=== PATIENT | male | born 1940 | race Hispanic/Latino ===

== ENCOUNTER 2016-08-27 16:52 | Emergency (ER) | payer MEDICARE, BC ==
[2016-08-27 16:52] VITALS: PULSE 70; BMI 34.6
[2016-08-27 16:59] VITALS: BP 178/79; PULSE 80; RESP 20; TEMP 97.8; O2SAT 98
[2016-08-27] MEDS ORDERED: Iohexol 240 (50 ml) PO STA (17:30)
--- NOTE | 2016-08-27 17:57 | ED PDOC ---
HPI: Abdomen Time Seen by Provider: 08/27/16 17:03 Chief Complaint (Nursing): Abdominal Pain Chief Complaint (Provider): Abdominal Pain History Per: Patient History/Exam Limitations: no limitations Onset/Duration Of Symptoms: Days (1x), Sudden Onset Current Symptoms Are (Timing): Still Present Severity: Moderate Location Of Pain/Discomfort: LUQ, LLQ Associated Symptoms: Nausea, Loss Of Appetite, Constipation. denies: Fever, Chills, Vomiting, Diarrhea, Urinary Symptoms Last Bowel Movement: Today (this morning) Additional Complaint(s): 75 year old male patient with a pertinent medical history of AFIB, HTN, CHF, and chronic constipation presents to the ED with complaints of left sided abdominal pain that started suddenly yesterday, resolved last night, and worsened this morning. He reports eating this morning but having a loss of appetite, associated nausea, and black stools secondary to iron intake (last bowel movement was this morning). He denies having bloody stools, vomiting, diarrhea, chills, and urinary symptoms. PMD: García Moura MD Past Medical History Reviewed: Historical Data, Nursing Documentation, Vital Signs Vital Signs: Last Vital Signs Temp 97.8 F 08/27/16 16:56 Pulse 80 08/27/16 16:56 Resp 20 08/27/16 16:56 BP 178/79 H 08/27/16 16:56 Pulse Ox 98 08/27/16 18:49 - Medical History PMH: Atrial Fibrillation, CHF, Hypercholesterolemia, Pneumonia Denies: HIV, Chronic Kidney Disease - Surgical History Other surgeries: left knee arthroscentesis. laparotomy for perforated ulcer - Family History Family History: States: No Known Family Hx - Social History Current smoker - smoking cessation education provided: No Alcohol: None Drugs: Denies - Home Medications Home Medications: Ambulatory Orders Medication Instructions Recorded Atorvastatin [Lipitor] 20 mg PO HS #0 tab 01/17/16 Diltiazem HCl [Cardizem LA] 300 mg PO DAILY #0 tab.er.24h 01/17/16 Ciprofloxacin HCl [Cipro] 250 mg PO BID #14 tab 08/27/16 Fenofibrate [Tricor] 134 mg PO DAILY 08/27/16 Linagliptin [Tradjenta] 5 mg PO DAILY 08/27/16 Tamsulosin [Flomax] 0.4 mg PO DAILY #14 cap 08/27/16 Telmisartan/Hydrochlorothiazid 1 tab PO DAILY 08/27/16 [Telmisartan-Hctz 80-25 mg Tab] cloNIDine [Catapres] 0.3 mg PO BID 08/27/16 metFORMIN [glucOPHAGE] 500 mg PO TID 08/27/16 traMADol [Ultram] 50 mg PO TID PRN #15 tab 08/27/16 - Allergies Allergies/Adverse Reactions: Allergies Allergy/AdvReac Type Severity Reaction Status Date / Time dabigatran etexilate Allergy hot flashes Verified 08/27/16 16:55 [From Pradaxa] Review of Systems ROS Statement: Except As Marked, All Systems Reviewed And Found Negative Constitutional: Negative for: Fever Gastrointestinal: Positive for: Nausea, Abdominal Pain (left side), Constipation , Other (black stool). Negative for: Vomiting, Diarrhea, Hematemesis Genitourinary Male: Negative for: Dysuria, Frequency, Hematuria Physical Exam - Reviewed Nursing Documentation Reviewed: Yes Vital Signs Reviewed: Yes - Physical Exam Appears: Positive for: Well, Non-toxic, In Acute Distress (moderate painful distress) Head Exam: Positive for: ATRAUMATIC, NORMOCEPHALIC Skin: Positive for: Warm, Dry, Pallor Cardiovascular/Chest: Positive for: Regular Rate, Rhythm Respiratory: Positive for: Normal Breath Sounds. Negative for: Respiratory Distress Gastrointestinal/Abdominal: Positive for: Bowel Sounds (hyperactive), Tenderness (upper left quadrant and lower left quadrant tenderness), Distended ( softly distended), Other (abdomen is protuberant. negative mcburney's point tenderness). Negative for: Mass, Guarding, Rebound Back: Positive for: Normal Inspection Extremity: Positive for: Normal ROM Neurologic/Psych: Positive for: Alert, Oriented (3x) - Laboratory Results Result Diagrams: 08/27/16 17:55 08/27/16 17:55 - ECG O2 Sat by Pulse Oximetry: 98 (RA) Pulse Ox Interpretation: Normal Medical Decision Making Medical Decision Makin:03 Initial impression: 75 year old male with abdominal pain. Differential diagnoses include but are not limited to constipation, diverticulitis, colitis, obstruction, and mesenteric ischemia. Initial plan: * CT abd and pelvis w/o po or IV contrast * XRay abdomen and chest * VBG * EKG * CMP * lipase * magenisium * phosphorous * troponin I * udip * PT/PTT * morphine 4mg IVP * zofran 8mg IV * blood culture * accucheck * reevaluation Accession No. : [id number] Patient Name / ID : AUSTEN COSTELLO / [id number] Exam Date : 08/27/2016 17:35:31 ( Approved ) Study Comment : Sex / Age : M / 75Y Creator : Oniel Adams MD Dictator : Oniel Adams MD Hoop Machine Operator : Salon Assistant : Oniel Adams MD Approver2 : Report Date : 08/27/2016 18:12:27 My Comment : PROCEDURE: CT Abdomen and Pelvis without intravenous contrast HISTORY: Abdominal pain and distention. COMPARISON: None. TECHNIQUE: Technique. Unenhanced study. Neither oral nor intravenous contrast administered. Radiation dose: Total exam DLP = mGy-cm. This CT exam was performed using one or more of the following dose reduction techniques: Automated exposure control, adjustment of the mA and/or kV according to patient size, and/or use of iterative reconstruction technique. FINDINGS: LOWER THORAX: Unremarkable. LIVER: Unremarkable. No gross lesion or ductal dilatation. GALLBLADDER AND BILE DUCTS: Unremarkable. PANCREAS: Unremarkable. No gross lesion or ductal dilatation. SPLEEN: Unremarkable. ADRENALS: Unremarkable. No mass. KIDNEYS AND URETERS: Left kidney in ureter: 4 mm calculus at the left ureterovesical junction. Proximal distention of the left ureter and left collecting system. No upper tract calculi identified on the left. Unremarkable right kidney and ureter. VASCULATURE: Unremarkable. No aortic aneurysm. BOWEL: Constipation without fecal impaction or obstruction. Diverticulosis without an acute inflammatory component or other associated pathologic process. APPENDIX: Unremarkable. Normal appendix. PERITONEUM: Unremarkable. No free fluid. No free air. LYMPH NODES: Unremarkable. No enlarged lymph nodes. BLADDER: Unremarkable. REPRODUCTIVE: Unremarkable. BONES: No acute fracture. OTHER FINDINGS: Midline anterior abdominal wall hernia containing fat only. IMPRESSION: Unilateral, left obstructive uropathy related to a 4 mm calculus at the left ureterovesical junction. Unremarkable upper tracts. Constipation/fecal impaction without obstruction. Scribe Attestation: Documented by Evelia Lei, acting as a scribe for Corry Billingsley MD. Provider Scribe Attestation: All medical record entries made by the Scribe were at my direction and personally dictated by me. I have reviewed the chart and agree that the record accurately reflects my personal performance of the history, physical exam, medical decision making, and the department course for this patient. I have also personally directed, reviewed, and agree with the discharge instructions and disposition. Disposition - Clinical Impression Clinical Impression: Renal calculus Counseled Patient/Family Regarding: Studies Performed, Diagnosis, Need For Followup, Rx Given - Disposition Referrals: Jn Hinojosa MD [Medical Doctor] - 08/28/16 [facility] [Outside] Disposition: Routine/Home Disposition Time: 19:53 Condition: IMPROVED Prescriptions: Ciprofloxacin HCl [Cipro] 250 mg PO BID #14 tab Tamsulosin [Flomax] 0.4 mg PO DAILY #14 cap traMADol [Ultram] 50 mg PO TID PRN #15 tab PRN Reason: SEVERE PAIN ONLY Instructions: Kidney Stones (ED)
[2016-08-27 18:00] LABS: VENOUS BLOOD GAS BASE EXCESS 5.8 mmol/L (0.0-2.0); VENOUS BLOOD GAS PCO2 55 mmHg (40-60); VENOUS BLOOD PH 7.38 (7.32-7.43)
[2016-08-27 18:04] LABS: BASO # 0.1 K/uL (0.0-0.2); BASO % 0.8 % (0.0-2.0); EOS # 0.2 K/uL (0.0-0.7); EOS % 2.5 % (0.0-4.0); HEMATOCRIT 44.7 % (35.0-51.0); LYMPH # 2.3 K/uL (1.0-4.3); LYMPH % 25.8 % (20.0-40.0); MEAN CORPUSCULAR HEMOGLOBIN 27.8 pg (27.0-31.0); MEAN PLATELET VOLUME 7.9 fl (7.2-11.7); MONO # 0.7 K/uL (0.0-0.8); MONO % 7.8 % (0.0-10.0); NEUT # 5.5 K/uL (1.8-7.0); NEUT % 63.1 % (50.0-75.0); NRBC % 0.1 % (0.0-0.0); RED CELL DISTRIBUTION WIDTH 15.7 % (11.5-14.5); WHITE BLOOD COUNT 8.7 K/uL (4.8-10.8)
--- NOTE | 2016-08-27 18:14 | CT ---
PROCEDURE: CT Abdomen and Pelvis without intravenous contrast HISTORY: Abdominal pain and distention. COMPARISON: None. TECHNIQUE: Technique. Unenhanced study. Neither oral nor intravenous contrast administered. Radiation dose: Total exam DLP = mGy-cm. This CT exam was performed using one or more of the following dose reduction techniques: Automated exposure control, adjustment of the mA and/or kV according to patient size, and/or use of iterative reconstruction technique. FINDINGS: LOWER THORAX: Unremarkable. LIVER: Unremarkable. No gross lesion or ductal dilatation. GALLBLADDER AND BILE DUCTS: Unremarkable. PANCREAS: Unremarkable. No gross lesion or ductal dilatation. SPLEEN: Unremarkable. ADRENALS: Unremarkable. No mass. KIDNEYS AND URETERS: Left kidney in ureter: 4 mm calculus at the left ureterovesical junction. Proximal distention of the left ureter and left collecting system. No upper tract calculi identified on the left. Unremarkable right kidney and ureter. VASCULATURE: Unremarkable. No aortic aneurysm. BOWEL: Constipation without fecal impaction or obstruction. Diverticulosis without an acute inflammatory component or other associated pathologic process. APPENDIX: Unremarkable. Normal appendix. PERITONEUM: Unremarkable. No free fluid. No free air. LYMPH NODES: Unremarkable. No enlarged lymph nodes. BLADDER: Unremarkable. REPRODUCTIVE: Unremarkable. BONES: No acute fracture. OTHER FINDINGS: Midline anterior abdominal wall hernia containing fat only. IMPRESSION: Unilateral, left obstructive uropathy related to a 4 mm calculus at the left ureterovesical junction. Unremarkable upper tracts. Constipation/fecal impaction without obstruction.
[2016-08-27 18:16] LABS: ALB/GLOB RATIO 1.7 (1.0-2.1); ALKALINE PHOSPHATASE 36 U/L (38-126); ALT/SGPT 42 U/L (21-72); AST/SGOT 34 U/L (17-59); BILIRUBIN,TOTAL 0.5 mg/dl (0.2-1.3); BLOOD UREA NITROGEN 23 mg/dl (9-20); CARBON DIOXIDE 29 mmol/L (22-30); CHLORIDE 100 mmol/L (98-107); GFR AFRICAN-AMERICAN > 60; GLUCOSE,RANDOM 130 mg/dL (75-110); LIPASE 163 U/L (23-300); MAGNESIUM 2.1 MG/DL (1.6-2.3); PHOSPHOROUS 4.6 mg/dl (2.5-4.5); POTASSIUM 4.4 MMOL/L (3.6-5.0); SODIUM 140 mmol/l (132-148); TOTAL PROTEIN 7.8 G/DL (6.3-8.2)
--- NOTE | 2016-08-27 18:55 | RAD ---
HISTORY: Abdominal pain. COMPARISON: August 27, 2016. A CT abdomen and pelvis. FINDINGS: BOWEL: Normal. No obstruction. No free air. Constipation without fecal impaction or obstruction. BONES: Normal. OTHER FINDINGS: Calculus overlying the expected location of the distal left ureter and urinary bladder. IMPRESSION: Distal left ureteral calculus confirmed on concurrent CT scan.
[2016-08-27 20:40] LABS: RBC URINE 6 /hpf (0-3); URINE BACTERIA FEW (<OCC); URINE BILIRUBIN NEGATIVE (NEGATIVE); URINE BLOOD SMALL (NEGATIVE); URINE COLOR YELLOW (YELLOW); URINE GLUCOSE (UA) NEG (Normal); URINE KETONE NEGATIVE (NEGATIVE); URINE LEUKOCYTE ESTERASE TRACE Leu/uL (Negative); URINE PROTEIN 30 mg/dL (NEGATIVE); URINE UROBILINOGEN 0.2-1.0 mg/dL (0.2-1.0); WBC URINE 14 /hpf (0-5)
[2016-08-27 21:08] LABS: PARTIAL THROMBOPLASTIN TIME 29.5 Seconds (25.6-37.1)
--- NOTE | 2016-08-28 14:36 | CARD ---
APPROVED REPORT EKG Measurement Heart [id number] <Conclusion> Atrial fibrillation Abnormal ECG
== END 2016-08-27 20:20 | disposition home or self-care (01) ==
LOC: H.ER 16:52
DX: R10.2 Pelvic and perineal pain (principal)

== ENCOUNTER 2016-08-28 01:02 | Observation (INO) | payer MEDICARE, BC ==
[2016-08-28 01:03] VITALS: PULSE 70
[2016-08-28] MEDS ORDERED: Sodium Chloride 0.9% 1,000 ML IV STA (01:47)
[2016-08-28 02:10] LABS: BASO % 0.3 % (0.0-2.0); EOS % 0.4 % (0.0-4.0); HEMATOCRIT 44.6 % (35.0-51.0); LYMPH # 1.2 K/uL (1.0-4.3); LYMPH % 11.1 % (20.0-40.0); MEAN CELL VOLUME 86.3 fl (80.0-94.0); MEAN CORPUSCULAR HEMOGLOBIN 28.1 pg (27.0-31.0); MEAN CORPUSCULAR HGB CONC 32.6 g/dL (33.0-37.0); MONO # 0.7 K/uL (0.0-0.8); MONO % 6.6 % (0.0-10.0); NEUT # 8.7 K/uL (1.8-7.0); NEUT % 81.6 % (50.0-75.0); RED CELL DISTRIBUTION WIDTH 15.1 % (11.5-14.5); WHITE BLOOD COUNT 10.7 K/uL (4.8-10.8)
[2016-08-28 02:30] LABS: ALB/GLOB RATIO 1.6 (1.0-2.1); BILIRUBIN,TOTAL 0.7 mg/dl (0.2-1.3); TOTAL PROTEIN 7.7 G/DL (6.3-8.2)
[2016-08-28 02:31] LABS: CALCIUM 9.6 mg/dL (8.4-10.2)
--- NOTE | 2016-08-28 02:38 | CT ---
EXAM: CT Abdomen and Pelvis Without Intravenous Contrast CLINICAL HISTORY: 75 years old, male; Pain; Abdominal pain; Localized; Left; Additional info: Renal colic TECHNIQUE: Axial computed tomography images of the abdomen and pelvis without intravenous contrast. This CT exam was performed using one or more of the following dose reduction techniques: automated exposure control, adjustment of the mA and/or kV according to patient size, and/or use of iterative reconstruction technique. Coronal and sagittal reformatted images were created and reviewed. COMPARISON: CT - ABD PELVIS W/O PO OR IV CONT 08/27/2016 5:35:31 PM FINDINGS: Lower thorax: There is minimal bibasilar atelectasis. ABDOMEN: Liver: There are no focal liver lesions present. Gallbladder and bile ducts: The gallbladder is contracted but otherwise normal. No calcified stones. No ductal dilation. Pancreas: Pancreas is partially fatty replaced and slightly atrophic. No ductal dilation. Spleen: The spleen is normal. Adrenals: The adrenal glands are normal. Kidneys and ureters: Left kidney demonstrates mild hydronephrosis and moderate to severe hydroureter throughout. There is an obstructing calculus at the left UVJ measuring 5 mm on series 2, image 80. The right kidney is normal. Stomach and bowel: Stomach is partially decompressed and grossly unremarkable. Mild diverticulosis is present in the sigmoid and descending colon. There is no evidence of diverticulitis. Colonic constipation is present. There is no evidence of intestinal obstruction. Appendix: No findings to suggest acute appendicitis. PELVIS: Bladder: Bladder is decompressed. No stones. Reproductive: The prostate gland and seminal vesicles are normal. ABDOMEN and PELVIS: Intraperitoneal space: There is no evidence of free intraperitoneal fluid. There is no free intraperitoneal air. Bones/joints: There are moderate degenerative changes present. There is mild diffuse osteopenia. No acute fracture. No dislocation. Soft tissues: Unremarkable. Vasculature: The aorta demonstrates moderate atherosclerotic calcification. No abdominal aortic aneurysm. Lymph nodes: There is no evidence of lymphadenopathy. IMPRESSION: Left kidney demonstrates mild hydronephrosis and moderate to severe hydroureter throughout. There is an obstructing calculus at the left UVJ measuring 5 mm on series 2, image 80.
--- NOTE | 2016-08-28 02:53 | ED PDOC ---
HPI: Abdomen Time Seen by Provider: 08/28/16 01:10 Chief Complaint (Nursing): Abdominal Pain Chief Complaint (Provider): Abdominal Pain History Per: Patient History/Exam Limitations: no limitations Onset/Duration Of Symptoms: Days (x1), Worse Since (acutely worse x1 hours) Outside of [place] travel?: No Current Symptoms Are (Timing): Still Present Pain Scale Rating Of: 9 Location Of Pain/Discomfort: RLQ, LLQ Quality Of Discomfort: Sharp Associated Symptoms: Nausea. denies: Vomiting, Diarrhea, Chest Pain Additional Complaint(s): 75 year old male presents to ED with complaints of left-sided abdominal pain x1 day and has a past medical history of HTN, AFIB, and DM. Notes that the pain has become acutely worse x1 hour, and was discharged from the ED several hours go with a diagnosis of ureteral calculi. Confirms that the Ultram prescription and Tylenol did not relieve the pain. Describes the pain as sharp and an 8-9/10 in intensity (+) nausea, (-) vomiting, diarrhea, chest pain, or SOB. PCP: Dr. Moura Past Medical History Reviewed: Historical Data, Nursing Documentation, Vital Signs Vital Signs: Last Vital Signs Temp 98.4 F 08/28/16 20:12 Pulse 117 H 08/28/16 21:02 Resp 18 08/28/16 20:12 BP 141/79 08/28/16 20:12 Pulse Ox 97 08/28/16 21:02 - Medical History PMH: Atrial Fibrillation, CHF, HTN, Hypercholesterolemia, Pneumonia Denies: HIV, Chronic Kidney Disease - Family History Family History: States: No Known Family Hx - Social History Current smoker - smoking cessation education provided: No Ex-Smoker (has not smoked in the last 12 months): No Alcohol: None Drugs: Denies - Home Medications Home Medications: Ambulatory Orders Medication Instructions Recorded Atorvastatin [Lipitor] 20 mg PO HS #0 tab 01/17/16 Diltiazem HCl [Cardizem LA] 300 mg PO DAILY #0 tab.er.24h 01/17/16 Ciprofloxacin HCl [Cipro] 250 mg PO BID #14 tab 08/27/16 Fenofibrate [Tricor] 134 mg PO DAILY 08/27/16 Linagliptin [Tradjenta] 5 mg PO DAILY 08/27/16 Tamsulosin [Flomax] 0.4 mg PO DAILY #14 cap 08/27/16 Telmisartan/Hydrochlorothiazid 1 tab PO DAILY 08/27/16 [Telmisartan-Hctz 80-25 mg Tab] cloNIDine [Catapres] 0.3 mg PO BID 08/27/16 metFORMIN [glucOPHAGE] 500 mg PO TID 08/27/16 traMADol [Ultram] 50 mg PO TID PRN #15 tab 08/27/16 Diltiazem HCl [Diltiazem 24Hr Cd] 300 mg PO DAILY 08/28/16 Telmisartan/Hydrochlorothiazid 1 tab PO DAILY 08/28/16 [Telmisartan-Hctz 80-25 mg Tab] cloNIDine [clonidine HCl] 0.2 mg PO QPM 08/28/16 - Allergies Allergies/Adverse Reactions: Allergies Allergy/AdvReac Type Severity Reaction Status Date / Time dabigatran etexilate Allergy hot flashes Verified 08/28/16 01:13 [From Pradaxa] Review of Systems ROS Statement: Except As Marked, All Systems Reviewed And Found Negative Cardiovascular: Negative for: Chest Pain Respiratory: Negative for: Shortness of Breath Gastrointestinal: Positive for: Nausea, Abdominal Pain (left-sided abdominal pain). Negative for: Vomiting, Diarrhea Physical Exam - Reviewed Nursing Documentation Reviewed: Yes Vital Signs Reviewed: Yes - Physical Exam Appears: Positive for: Non-toxic, Uncomfortable Skin: Positive for: Normal Color, Warm, Dry Eye Exam: Positive for: Normal appearance ENT: Positive for: Normal ENT Inspection Cardiovascular/Chest: Positive for: Regular Rate, Rhythm, Tachycardia Respiratory: Positive for: Normal Breath Sounds. Negative for: Respiratory Distress Gastrointestinal/Abdominal: Positive for: Soft. Negative for: Tenderness Extremity: Positive for: Normal ROM. Negative for: Deformity Neurologic/Psych: Positive for: Alert, Oriented. Negative for: Motor/Sensory Deficits - Laboratory Results Result Diagrams: 08/28/16 02:00 08/28/16 02:00 - ECG ECG Rhythm: Positive for: Sinus Tachycardia, Atrial Fibrillation Interpretation Of Abn EKG: AFIB with RVR, sinus tachycardia at 117 Rate: 117 O2 Sat by Pulse Oximetry: 97 (RA) Pulse Ox Interpretation: Normal Medical Decision Making Medical Decision Makin Initial impression: left sided abdominal and flank pain in setting of ureteral calculu Initial plan: * CTA A/P * EKG * Labs * NS IV * Toradol 10mg IV * Zofran Inj 4mg IV * UA 0237 CT FINDINGS Lower thorax: There is minimal bibasilar atelectasis. ABDOMEN: Liver: There are no focal liver lesions present. Gallbladder and bile ducts: The gallbladder is contracted but otherwise normal. No calcified stones. No ductal dilation. Pancreas: Pancreas is partially fatty replaced and slightly atrophic. No ductal dilation. Spleen: The spleen is normal. Adrenals: The adrenal glands are normal. Kidneys and ureters: Left kidney demonstrates mild hydronephrosis and moderate to severe hydroureter throughout. There is an obstructing calculus at the left UVJ measuring 5 mm on series 2, image 80. The right kidney is normal. Stomach and bowel: Stomach is partially decompressed and grossly unremarkable. Mild diverticulosis is present in the sigmoid and descending colon. There is no evidence of diverticulitis. Colonic constipation is present. There is no evidence of intestinal obstruction. Appendix: No findings to suggest acute appendicitis. PELVIS: Bladder: Bladder is decompressed. No stones. Reproductive: The prostate gland and seminal vesicles are normal. ABDOMEN and PELVIS: Intraperitoneal space: There is no evidence of free intraperitoneal fluid. There is no free intraperitoneal air. Bones/joints: There are moderate degenerative changes present. There is mild diffuse osteopenia. No acute fracture. No dislocation. Soft tissues: Unremarkable. Vasculature: The aorta demonstrates moderate atherosclerotic calcification. No abdominal aortic aneurysm. Lymph nodes: There is no evidence of lymphadenopathy. IMPRESSION: Left kidney demonstrates mild hydronephrosis and moderate to severe hydroureter throughout. There is an obstructing calculus at the left UVJ measuring 5 mm on series 2, image 80. Labs reviewed: no clinically significant abnormalities Given patient's re-presentation within a few hours, and worsening hydronephrosis on CT, patient will be admitted under Dr. Cottrell (covering Dr. Moura) in med/surg. Dx: ureteral calculi Scribe Attestation: Documented by Nancy Kerns acting as a scribe for Gigi Kapoor MD. Scribe Attestation: All medical record entries made by the Scribe were at my direction and personally dictated by me. I have reviewed the chart and agree that the record accurately reflects my personal performance of the history, physical exam, medical decision making, and the department course for this patient. I have also personally directed, reviewed, and agree with the discharge instructions and disposition. Disposition - Clinical Impression Clinical Impression: Renal calculus, Hydronephrosis, Ureteral calculus - Disposition Disposition Time: 02:40 Condition: FAIR - Pt Status Changed To: Hospital Disposition Of: Observation
--- NOTE | 2016-08-28 03:08 | CP.PCM.HP ---
History of Present Illness - History of Present Illness History of Present Illness: PCP: Brian Moura MD Chief Complaint: Abdominal Pain HPI: The Hx is obtained from the Patient's and the medical records, as the patient only in [place]. 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 He is a 75 years old male with hx of DM II, HTN, A Fib came to the ED two days prior with left abdominal pain and diagnosed with left renal calculi. He was treated and discharged with analgesics.Now returns with worsening of the left flank pain radiating to the left abdomen and to the left groin with intensity 8-9/10. The pain was associated with nausea and not relieved with the Ultram and Tylenol. No SOB, chest pain, Palpitation, SOB, Dysuria nor diarrhea. PMH: DM II; HLD: HTN:A Fib on Aspirin; Renal calculi; Pneumonia PSH: Perforated Ulcer 1998; Arthroscopy SH: No Illegal drug use; No smoking; No Alcohol use; Live with family FH: No known family hx Allergies: Dabigatran; Etexilate Present on Admission - Present on Admission Any Indicators Present on Admission: Yes History of DVT/PE: No History of Uncontrolled Diabetes: Yes Urinary Catheter: No Decubitus Ulcer Present: No Review of Systems - Constitutional Constitutional: absent: Anorexia, Chills, Fever, Lethargy - EENT Eyes: Requires Corrective Lenses. absent: Diplopia, Floaters, Photophobia Ears: absent: Decreased Hearing, Ear Discharge, Ear Pain, Tinnitus Nose/Mouth/Throat: absent: Epistaxis, Nasal Congestion, Nasal Discharge - Cardiovascular Cardiovascular: absent: Chest Pain, Dyspnea, Edema - Respiratory Respiratory: absent: Cough, Dyspnea, Wheezing, Stridor - Gastrointestinal Gastrointestinal: Abdominal Pain, Nausea, Vomiting. absent: Diarrhea - Genitourinary Genitourinary: Dysuria, Flank Pain. absent: Urinary Frequency - Musculoskeletal Additional comments: Left flanl and lateral left abdominal pain. - Integumentary Integumentary: absent: Pruritus, Rash, Skin Ulcer, Sores, Striae, Swelling - Neurological Neurological: absent: Confusion, Focal Weakness, Vertigo, Weakness - Psychiatric Psychiatric: absent: Anxiety, Depression, Panic Attacks - Endocrine Endocrine: absent: Palpitations, Polydipsia, Polyphagia, Polyuria - Hematologic/Lymphatic Hematologic: absent: Easy Bleeding, Easy Bruising Past Patient History - Infectious Disease Hx of Infectious Diseases: None - Tetanus Immunizations Tetanus Immunization: Unknown - Past Medical History & Family History Past Medical History?: Yes - Past Social History Smoking Status: Never Smoked Chewing Tobacco Use: No Cigar Use: No Alcohol: None Drugs: Denies Home Situation {Lives}: With Family - CARDIAC Hx Atrial Fibrillation: Yes Hx Congestive Heart Failure: Yes Hx Hypercholesterolemia: Yes - PULMONARY Hx Pneumonia: Yes - NEUROLOGICAL Hx Neurological Disorder: No - HEENT Hx HEENT Problems: No - RENAL Hx Chronic Kidney Disease: No - ENDOCRINE/METABOLIC Hx Endocrine Disorders: Yes (DM) Hx Diabetes Mellitus Type 2: Yes - HEMATOLOGICAL/ONCOLOGICAL Hx Human Immunodeficiency Virus (HIV): No - INTEGUMENTARY Hx Dermatological Problems: No - MUSCULOSKELETAL/RHEUMATOLOGICAL Hx Musculoskeletal Disorders: No Hx Falls: No - GASTROINTESTINAL Hx Gastrointestinal Disorders: Yes Hx Ulcer: Yes (perofrated ulcer, 1990) - GENITOURINARY/GYNECOLOGICAL Hx Genitourinary Disorders: No - PSYCHIATRIC Hx Psychophysiologic Disorder: No Hx Substance Use: No - SURGICAL HISTORY Hx Surgeries: Yes Other/Comment: Perforated Ulcer with Sx 1990 - ANESTHESIA Hx Anesthesia: Yes Hx Anesthesia Reactions: No Meds Allergies/Adverse Reactions: Allergies Allergy/AdvReac Type Severity Reaction Status Date / Time dabigatran etexilate Allergy hot flashes Verified 08/28/16 01:13 [From Pradaxa] Physical Exam - Constitutional Appears: No Acute Distress - Head Exam Head Exam: ATRAUMATIC, NORMAL INSPECTION, NORMOCEPHALIC - Eye Exam Eye Exam: EOMI, Normal appearance Pupil Exam: NORMAL ACCOMODATION, PERRL - ENT Exam ENT Exam: Mucous Membranes Moist, Normal Exam, Normal External Ear Exam, Normal Oropharynx - Neck Exam Neck exam: Positive for: Full Rom, Normal Inspection. Negative for: Lymphadenopathy, Tenderness - Respiratory Exam Respiratory Exam: Clear to Auscultation Bilateral. absent: Rhonchi, Wheezes Additional comments: Mild rales at both bases - Cardiovascular Exam Cardiovascular Exam: Irregular Rhythm, JVD, +S1, +S2. absent: Gallop, Rubs - GI/Abdominal Exam Additional comments: Obese, Soft, tender at the left lower quadrant and left flank, - Rectal Exam Rectal Exam: Deferred - Extremities Exam Extremities exam: Positive for: full ROM, normal inspection. Negative for: calf tenderness, pedal edema - Back Exam Back exam: NORMAL INSPECTION. absent: CVA tenderness (L), CVA tenderness (R) - Neurological Exam Neurological exam: Alert, CN II-XII Intact, Oriented x3, Reflexes Normal - Psychiatric Exam Psychiatric exam: Normal Affect, Normal Mood - Skin Skin Exam: Dry, Intact, Normal Color, Warm Results - Vital Signs Recent Vital Signs: Last Vital Signs Temp 98.3 F 08/28/16 01:11 Pulse 130 H 08/28/16 01:11 Resp 15 08/28/16 01:11 BP 158/123 H 08/28/16 01:11 Pulse Ox 97 08/28/16 03:06 - Labs Result Diagrams: 08/28/16 02:00 08/28/16 02:00 Labs: Laboratory Results - last 24 hr 08/28/16 08/28/16 02:00 02:00 WBC 10.7 RBC 5.17 Hgb 14.5 Hct 44.6 MCV 86.3 MCH 28.1 MCHC 32.6 L RDW 15.1 H Plt Count 228 MPV 8.0 Neut % (Auto) 81.6 H Lymph % (Auto) 11.1 L Ramsey % (Auto) 6.6 Eos % (Auto) 0.4 Baso % (Auto) 0.3 Neut # 8.7 H Lymph # 1.2 Ramsey # 0.7 Eos # 0.0 Baso # 0.0 Sodium 138 Potassium 4.0 Chloride 98 Carbon Dioxide 24 Anion Gap 19 BUN 27 H Creatinine 1.5 Est GFR ( Amer) 55 Est GFR (Non-Af Amer) 46 Random Glucose 196 H Calcium 9.6 Total Bilirubin 0.7 AST 33 ALT 44 Alkaline Phosphatase 40 Total Protein 7.7 Albumin 4.8 Globulin 3.0 Albumin/Globulin Ratio 1.6 - Imaging and Cardiology CT scan - abdomen Status: Report reviewed by me Additional comment: FINDINGS: Lower thorax: There is minimal bibasilar atelectasis. ABDOMEN: Liver: There are no focal liver lesions present. Gallbladder and bile ducts: The gallbladder is contracted but otherwise normal. No calcified stones. No ductal dilation. Pancreas: Pancreas is partially fatty replaced and slightly atrophic. No ductal dilation. Spleen: The spleen is normal. Adrenals: The adrenal glands are normal. Kidneys and ureters: Left kidney demonstrates mild hydronephrosis and moderate to severe hydroureter throughout. There is an obstructing calculus at the left UVJ measuring 5 mm on series 2, image 80. The right kidney is normal. Stomach and bowel: Stomach is partially decompressed and grossly unremarkable. Mild diverticulosis is present in the sigmoid and descending colon. There is no evidence of diverticulitis. Colonic constipation is present. There is no evidence of intestinal obstruction. Appendix: No findings to suggest acute appendicitis. PELVIS: Bladder: Bladder is decompressed. No stones. Reproductive: The prostate gland and seminal vesicles are normal. ABDOMEN and PELVIS: Intraperitoneal space: There is no evidence of free intraperitoneal fluid. There is no free intraperitoneal air. Bones/joints: There are moderate degenerative changes present. There is mild diffuse osteopenia. No acute fracture. No dislocation. Soft tissues: Unremarkable. Vasculature: The aorta demonstrates moderate atherosclerotic calcification. No abdominal aortic aneurysm. Lymph nodes: There is no evidence of lymphadenopathy. IMPRESSION: Left kidney demonstrates mild hydronephrosis and moderate to severe hydroureter throughout. There is an obstructing calculus at the left UVJ measuring 5 mm on series 2, image 80. Assessment & Plan - Assessment and Plan (Free Text) Assessment: #. Left obstructing Ureteral calculi #. Hydroureter #. Dehydration #. DM II #. HTN #. A Fib Plan: 75 years old male with hx of DM II, HTN, A Fib came to the ED two days prior with left abdominal pain and diagnosed with left renal calculi, treated and discharged with analgesics. He returns with worsening of the left flank pain radiating to the left abdomen and to the left groin with intensity 8-9/10, not relieved with the Ultram and Tylenol. #. Left obstructing Ureteral calculi with renal colic - Consult Dr muñoz urology - IV Fluids NS at 150mls/hr - Analgesics with Morphine - Strain all urine for Stones #. Hydroureter and Hydroureter - Urology on consult #. Dehydration - IV fluids NS at 150mls/hr #. DM II with Hyperglycemia - Diabetic diet - Insulin Novolog sliding scale to Accucheck ACHS - Hold Glucophage for 48 hrs - HbA1c #. HTN uncontrolled - Cardizem CD 300mg daily/ Telmisartan 80mg Daily/Clonidine0.3mg BID #. A Fib rate controlled. Not on anticoagulant but on ASA - Consult Cardiology Dr Leonard for clearance to surgery - Hold ASA and restart after any intervention #. Stress ulcer prophylaxis with Pepcid #. DVT Prophylaxis with SCD #. Code Status: Full - Date & Time Date: 08/28/16 Time: 03:07
[2016-08-28] MEDS: Sodium Chloride 0.9% 1,000 ML IV SCH ×3 (04:14→23:08)
[2016-08-28] MEDS: Insulin Lispro (humaLOG) 100 Units/ml Inj SC SCH ×4 (06:50→22:29)
[2016-08-28] MEDS ORDERED: Insulin Lispro (humaLOG) 100 Units/ml Inj SC SCH (07:30)
[2016-08-28] MEDS ORDERED: diltiaZEM 300 mg/24 Hours CD Cap PO SCH (09:00)
--- NOTE | 2016-08-28 09:05 | CP.PCM.CON ---
History of Present Illness - History of Present Illness History of Present Illness: THE PATIENT IS A 75 YEAR OLD MALE ADMITTED FOR A LEFT URETERAL STONE AND CARDIOLOGY WAS ASKED TO SEE HIM FOR CLEARANCE PRIOR TO CYSTOSCOPY. HE HAS A HISTORY OF HYPERTENSION, CHRONIC ATRIAL FIBRILLATION, HYPERLIPIDEMIA, PUS AND TYPE 2 DM. HE WAS SEEN IN THE ER FOR LEFT FLANK PAIN 2 DAYS BEFORE AND DISCHARGED ON ANALGESICS. HE CAME BACK AND WAS ADMITTED. HE DOSE NOT HAVE CAD. HE DENIES ANY CHEST PAIN, PALPITATIONS OR SOB. Past Patient History - Infectious Disease Hx of Infectious Diseases: None - Tetanus Immunizations Tetanus Immunization: Unknown - Past Medical History & Family History Past Medical History?: Yes - Past Social History Smoking Status: Former Smoker - CARDIAC Hx Cardiac Disorders: Yes Hx Atrial Fibrillation: Yes Hx Congestive Heart Failure: Yes Hx Hypercholesterolemia: Yes Hx Hypertension: Yes - PULMONARY Hx Respiratory Disorders: Yes Hx Pneumonia: Yes - NEUROLOGICAL Hx Neurological Disorder: No - HEENT Hx HEENT Problems: No - RENAL Hx Chronic Kidney Disease: Yes Hx Kidney Stones: Yes - ENDOCRINE/METABOLIC Hx Endocrine Disorders: Yes (DM) Hx Diabetes Mellitus Type 1: Yes - HEMATOLOGICAL/ONCOLOGICAL Hx Blood Disorders: No Hx AIDS: No Hx Human Immunodeficiency Virus (HIV): No - INTEGUMENTARY Hx Dermatological Problems: No - MUSCULOSKELETAL/RHEUMATOLOGICAL Hx Musculoskeletal Disorders: No Hx Falls: No - GASTROINTESTINAL Hx Gastrointestinal Disorders: Yes Hx Gastritis: Yes Hx Gastroesophageal Reflux: Yes Hx Ulcer: Yes (perforated ulcer, 1990) - GENITOURINARY/GYNECOLOGICAL Hx Genitourinary Disorders: No Hx Urinary Tract Infection: No - PSYCHIATRIC Hx Psychophysiologic Disorder: No Hx Substance Use: No - SURGICAL HISTORY Hx Surgeries: Yes Other/Comment: Perforated Ulcer with Sx 1990 - ANESTHESIA Hx Anesthesia: Yes Hx Anesthesia Reactions: No Hx Malignant Hyperthermia: No Has any member of the family had a problem w/ anesthesia?: No Meds Allergies/Adverse Reactions: Allergies Allergy/AdvReac Type Severity Reaction Status Date / Time dabigatran etexilate Allergy hot flashes Verified 08/28/16 01:13 [From Pradaxa] - Medications Medications: Current Medications Atorvastatin Calcium (Lipitor) 20 mg PO HS [facility] Clonidine HCl (Catapres) 0.3 mg PO BID [facility] Clonidine HCl (Catapres) 0.2 mg PO ACL [facility] Diltiazem HCl (Cardizem Cd) 180 mg PO DAILY [facility] Diltiazem HCl (Cardizem Cd) 120 mg PO DAILY [facility] Famotidine (Pepcid) 20 mg IVP DAILY [facility] Fenofibrate (Tricor) 145 mg PO DAILY [facility] Sodium Chloride (Sodium Chloride 0.9%) 1,000 mls @ 150 mls/hr IV .Q6H40M [facility] Stop: 08/29/16 03:41 Last Admin: 08/28/16 04:14 Dose: 150 mls/hr Insulin Human Lispro (Humalog) 0 units SC ACHS [facility] PRN Reason: Protocol Last Admin: 08/28/16 06:50 Dose: Not Given Losartan Potassium (Cozaar) 100 mg PO DAILY [facility] Metformin HCl (Glucophage) 500 mg PO TID [facility] Morphine Sulfate (Morphine) 2 mg IVP Q4 PRN PRN Reason: Pain, moderate (4-7) Last Admin: 08/28/16 04:02 Dose: 2 mg Morphine Sulfate (Morphine) 4 mg IVP Q4 PRN PRN Reason: Pain, severe (8-10) Ondansetron HCl (Zofran Inj) 4 mg IVP Q4 PRN PRN Reason: Nausea/Vomiting Tamsulosin HCl (Flomax) 0.4 mg PO DAILY [facility] Physical Exam - Respiratory Exam Respiratory Exam: Clear to Auscultation Bilateral - Cardiovascular Exam Cardiovascular Exam: Irregular Rhythm, +S1, +S2 - Extremities Exam Extremities exam: Positive for: normal inspection - Additional Findings Additional findings: EKG ATRIAL FIBRILLATION Results - Vital Signs Recent Vital Signs: Last Vital Signs Temp 98.8 F 08/28/16 08:10 Pulse 86 08/28/16 08:10 Resp 20 08/28/16 08:10 BP 104/67 08/28/16 08:10 Pulse Ox 98 08/28/16 08:10 - Labs Result Diagrams: 08/28/16 02:00 08/28/16 02:00 Labs: Laboratory Results - last 24 hr 08/28/16 06:03 POC Glucose (mg/dL) 129 H Assessment & Plan - Assessment and Plan (Free Text) Assessment: SYMPTOMATIC LEFT URETERAL STONE CHRONIC ATRIAL FIBRILLATION HYPERTENSION HYPERLIPIDEMIA TYPE 2 DM Plan: THE PATIENT IS CLEAR FOR CYSTOSCOPY FROM THE CARDIAC [facility] CONTINUE LOSARTAN, DILTIAZEM, CLONIDINE, ATORVASTATIN, FENOFIBRATE THE PATIENT WAS ON DAILY ASPIRIN 81 MGS DAILY BUT IT IS BEING HELD PRIOR TO THE CYSTOSCOPY NOTE: THE PATIENT WAS ON WARFARIN AND PRADAXA IN THE PAST FOR HIS CHRONIC ATRIAL FIBRILLATION BUT THEY WERE STOPPED DUE TO CAUSING ABDOMINAL PAIN AND HIS PUD AT THE FAMILY'S INSISTENCE
[2016-08-28 09:33] LABS: PARTIAL THROMBOPLASTIN TIME 29.9 Seconds (25.6-37.1)
[2016-08-28] MEDS: diltiaZEM 180 mg/24 Hours CD Cap PO SCH (09:44)
[2016-08-28] MEDS: diltiaZEM 120 mg/24 Hours CD Cap PO SCH (09:44)
[2016-08-28 12:39] LABS: RBC URINE 2 /hpf (0-3); URINE BILIRUBIN NEGATIVE (NEGATIVE); URINE BLOOD NEGATIVE (NEGATIVE); URINE COLOR YELLOW (YELLOW); URINE GLUCOSE (UA) 50 mg/dL (Normal); URINE KETONE NEGATIVE (NEGATIVE); URINE LEUKOCYTE ESTERASE NEG Leu/uL (Negative); URINE PROTEIN NEGATIVE (NEGATIVE); URINE UROBILINOGEN 0.2-1.0 mg/dL (0.2-1.0); WBC URINE 4 /hpf (0-5)
[2016-08-28] MEDS ORDERED: cefTRIAXone (Rocephin) 1 gm Inj IM ONE (13:20)
[2016-08-28 13:49] VITALS: BMI 33.0
--- NOTE | 2016-08-28 14:33 | CARD ---
APPROVED REPORT EKG Measurement Heart [id number] <Conclusion> Atrial fibrillation with rapid ventricular response Abnormal ECG
--- NOTE | 2016-08-28 14:37 | CARD ---
APPROVED REPORT EKG Measurement Heart [id number] <Conclusion> Atrial fibrillation with rapid ventricular response Nonspecific T wave abnormality Abnormal ECG
[2016-08-28] MEDS ORDERED: Succinylcholine 200 mg/10 ml Inj IV ONE (15:05)
[2016-08-28] MEDS ORDERED: Rocuronium 10 mg/ml (5 ml) ONE (15:05)
[2016-08-28] MEDS ORDERED: Neostigmine Methylsulfate 3mg/3ml Syringe IV ONE (15:05)
[2016-08-28] MEDS ORDERED: Midazolam 2 MG/2 ML VIAL ONE (15:05)
[2016-08-28] MEDS ORDERED: Propofol 10 mg/ml Inj (20 ML) ONE (15:05)
[2016-08-28] MEDS ORDERED: Sodium Chloride 0.9% 1,000 ML IV ONE ×2 (15:15→16:01)
[2016-08-28] MEDS ORDERED: ePHEDrine 50 mg/ml Inj ONE (15:42)
[2016-08-28] MEDS ORDERED: HYDROmorphone 0.5 mg/0.5 ml ISec IVP PRN (16:48)
[2016-08-28] MEDS: Ciprofloxacin 400mg/200ml D5W 400 MG/200 ML BAG IVPB SCH ×2 (18:29→21:00)
--- NOTE | 2016-08-28 20:33 | OP ---
PROCEDURE DATE: 08/28/2016 PREOPERATIVE DIAGNOSIS: Acute left renal colic secondary to left ureteral calculus. POSTOPERATIVE DIAGNOSIS: Acute left renal colic secondary to left ureteral calculus. PROCEDURE PERFORMED: Cystoscopy, left ureteroscopy, stone basketing. DESCRIPTION OF PROCEDURE: The patient was placed on the operating table in dorsal lithotomy position . The area of the groin was draped and prepped in a sterile manner. Using a ureteroscope, I entered into the bladder atraumatically, identified the right ureteral orifice very easily. The left, howev er, was embedded in an area of significant edema. At this time, I was able to find an opening into t he ureter with a curved guidewire. I followed over the wire with the ureteroscope. I identified the stone. I used a stone basket to engage the stone, removed it completely. I then went back to look to see if I could reengage the ureteral orifice to insert a J stent and there was too much edema for me to find it and instead of causing more trauma, I decided to retreat at this point. The stone was sent for chemical analysis. The patient was taken from the operating room in good condition. Jn Hinojosa MD cc: 48 TT: 08/28/2016 20:32:49 jn
[2016-08-28] MEDS: Lactated Ringer's 1,000 ML IV SCH (22:30)
[2016-08-29] MEDS: Lactated Ringer's 1,000 ML IV SCH (05:24)
[2016-08-29] MEDS ORDERED: Ciprofloxacin 400mg/200ml D5W 400 MG/200 ML BAG IVPB SCH (06:00)
[2016-08-29 06:47] VITALS: TEMP 98.8
[2016-08-29] MEDS: Insulin Lispro (humaLOG) 100 Units/ml Inj SC SCH (06:53)
[2016-08-29 07:35] VITALS: PULSE 82; RESP 20; O2SAT 94
[2016-08-29 08:06] LABS: BASO % 0.5 % (0.0-2.0); EOS # 0.1 K/uL (0.0-0.7); EOS % 0.8 % (0.0-4.0); HEMATOCRIT 37.9 % (35.0-51.0); LYMPH # 1.1 K/uL (1.0-4.3); MEAN CELL VOLUME 86.6 fl (80.0-94.0); MEAN CORPUSCULAR HEMOGLOBIN 28.2 pg (27.0-31.0); MEAN CORPUSCULAR HGB CONC 32.6 g/dL (33.0-37.0); MEAN PLATELET VOLUME 8.4 fl (7.2-11.7); MONO # 0.8 K/uL (0.0-0.8); MONO % 7.7 % (0.0-10.0); NEUT # 7.8 K/uL (1.8-7.0); RED CELL DISTRIBUTION WIDTH 15.6 % (11.5-14.5); WHITE BLOOD COUNT 9.8 K/uL (4.8-10.8)
--- NOTE | 2016-08-29 08:20 | CP.PCM.DIS ---
Provider - Provider Date of Admission: 08/28/16 02:51 Attending physician: Jewel Cottrell Primary care physician: Dr Moura Cardio: Dr Pereira Consults: Dr Hinojosa - Urology Dr Pereira- Cardio Time Spent in preparation of Discharge (in minutes): 40 Diagnosis - Discharge Diagnosis (1) Ureteral calculus Status: Acute (2) Hydronephrosis Status: Acute (3) Chronic atrial fibrillation Status: Chronic (4) DM type 2 (diabetes mellitus, type 2) Status: Chronic (5) HLD (hyperlipidemia) Status: Chronic (6) HTN (hypertension) Status: Chronic Hospital Course - Lab Results Lab Results: Most Recent Lab Values WBC 9.8 K/uL (4.8-10.8) 08/29/16 06:00 RBC 4.37 Mil/uL (4.40-5.90) L 08/29/16 06:00 Hgb 12.4 g/dL (12.0-18.0) D 08/29/16 06:00 Hct 37.9 % (35.0-51.0) 08/29/16 06:00 MCV 86.6 fl (80.0-94.0) 08/29/16 06:00 MCH 28.2 pg (27.0-31.0) 08/29/16 06:00 MCHC 32.6 g/dL (33.0-37.0) L 08/29/16 06:00 RDW 15.6 % (11.5-14.5) H 08/29/16 06:00 Plt Count 184 K/uL (130-400) 08/29/16 06:00 MPV 8.4 fl (7.2-11.7) 08/29/16 06:00 Neut % (Auto) 80.0 % (50.0-75.0) H 08/29/16 06:00 Lymph % (Auto) 11.0 % (20.0-40.0) L 08/29/16 06:00 [place] % (Auto) 7.7 % (0.0-10.0) 08/29/16 06:00 Eos % (Auto) 0.8 % (0.0-4.0) 08/29/16 06:00 Baso % (Auto) 0.5 % (0.0-2.0) 08/29/16 06:00 Neut # 7.8 K/uL (1.8-7.0) H 08/29/16 06:00 Lymph # 1.1 K/uL (1.0-4.3) 08/29/16 06:00 [place] # 0.8 K/uL (0.0-0.8) 08/29/16 06:00 Eos # 0.1 K/uL (0.0-0.7) 08/29/16 06:00 Baso # 0.0 K/uL (0.0-0.2) 08/29/16 06:00 PT 12.4 Seconds (9.8-13.1) 08/28/16 08:47 INR 1.1 (0.9-1.2) 08/28/16 08:47 APTT 29.9 Seconds (25.6-37.1) 08/28/16 08:47 Sodium 138 mmol/l (132-148) 08/28/16 02:00 Potassium 4.0 MMOL/L (3.6-5.0) 08/28/16 02:00 Chloride 98 mmol/L (98-107) 08/28/16 02:00 Carbon Dioxide 24 mmol/L (22-30) 08/28/16 02:00 Anion Gap 19 (10-20) 08/28/16 02:00 BUN 27 mg/dl (9-20) H 08/28/16 02:00 Creatinine 1.5 mg/dL (0.8-1.5) 08/28/16 02:00 Est GFR ( Amer) 55 08/28/16 02:00 Est GFR (Non-Af Amer) 46 08/28/16 02:00 POC Glucose (mg/dL) 149 mg/dL (65-110) H 08/29/16 06:26 Random Glucose 196 mg/dL (75-110) H 08/28/16 02:00 Hemoglobin A1c 7.1 % (4.2-6.5) H 08/28/16 05:15 Calcium 9.6 mg/dL (8.4-10.2) 08/28/16 02:00 Total Bilirubin 0.7 mg/dl (0.2-1.3) 08/28/16 02:00 AST 33 U/L (17-59) 08/28/16 02:00 ALT 44 U/L (21-72) 08/28/16 02:00 Alkaline Phosphatase 40 U/L (38-126) 08/28/16 02:00 Total Protein 7.7 G/DL (6.3-8.2) 08/28/16 02:00 Albumin 4.8 g/dL (3.5-5.0) 08/28/16 02:00 Globulin 3.0 gm/dL (2.2-3.9) 08/28/16 02:00 Albumin/Globulin Ratio 1.6 (1.0-2.1) 08/28/16 02:00 Urine Color Yellow (YELLOW) 08/28/16 12:28 Urine Clarity Clear (Clear) 08/28/16 12:28 Urine pH 6.0 (5.0-8.0) 08/28/16 12:28 Ur Specific [place] 1.015 (1.003-1.030) 08/28/16 12:28 Urine Protein Negative mg/dL (NEGATIVE) 08/28/16 12:28 Urine Glucose (UA) 50 mg/dL (Normal) 08/28/16 12:28 Urine Ketones Negative mg/dL (NEGATIVE) 08/28/16 12:28 Urine Blood Negative (NEGATIVE) 08/28/16 12:28 Urine Nitrate Negative (NEGATIVE) 08/28/16 12:28 Urine Bilirubin Negative (NEGATIVE) 08/28/16 12:28 Urine Urobilinogen 0.2-1.0 mg/dL (0.2-1.0) 08/28/16 12:28 Ur Leukocyte Esterase Neg Fernie/uL (Negative) 08/28/16 12:28 Urine RBC (Auto) 2 /hpf (0-3) 08/28/16 12:28 Urine Microscopic WBC 4 /hpf (0-5) 08/28/16 12:28 - Hospital Course Hospital Course: 75 y/o gent with hx of HTN, DM, Chronic A Fib, returned to the ED because of worsening flank pain. Pt was in the ED 2 days prior to admission complaining of flank pain . CT of abd and pelvis was done and he was dx to have Ureteral Stone and was d/c home on Pain meds, PO Cipro and Flomax. (1) Ureteral calculus Status: Acute CT of abd and pelvis : 5mm Ureteral stone UVJ jxn, left Hydroureter and mild hydronephrosis Pt was observed in Med Surg Started on IVF and Pain mgt IV Cipro started Urology consulted - Dr Hinojosa did Cystoscopy with Stone removal Dr Pereira consulted for preop optimization Pt's pain improved (2) Hydronephrosis sec to obstruction due to Ureteral stone Status: Acute as above (3) Chronic atrial fibrillation, rate controlled Status: Chronic off anticoagulation - developed allergy to Pradaxa and refuses pt to be started on any anticoag restart ASA in am pt on Cardizem (4) DM type 2 (diabetes mellitus, type 2) Status: Chronic accucheck with coverage resta home DM meds (5) HLD (hyperlipidemia) Status: Chronic cont stsin (6) HTN (hypertension) Status: Chronic cont Clonidine , Temisartan and Cardizem Discharge Exam - Head Exam Head Exam: ATRAUMATIC, NORMAL INSPECTION, NORMOCEPHALIC - Eye Exam Eye Exam: EOMI, Normal appearance Pupil Exam: NORMAL ACCOMODATION - ENT Exam ENT Exam: Mucous Membranes Moist, Normal External Ear Exam - Neck Exam Neck exam: Full Rom - Respiratory Exam Respiratory Exam: NORMAL BREATHING PATTERN. absent: Rales, Wheezes, Respiratory Distress - Cardiovascular Exam Cardiovascular Exam: Irregular Rhythm, +S1, +S2 - GI/Abdominal Exam GI & Abdominal Exam: Distended, Normal Bowel Sounds, Soft. absent: Tenderness - Extremities Exam Extremities exam: full ROM, normal capillary refill, pedal pulses present - Back Exam Back exam: CVA tenderness (L), FULL ROM. absent: CVA tenderness (R), paraspinal tenderness - Neurological Exam Neurological exam: Alert, CN II-XII Intact, Oriented x3, Reflexes Normal - Psychiatric Exam Psychiatric exam: Normal Affect, Normal Mood - Skin Skin Exam: Normal Color, Warm Discharge Plan - Discharge Medications Prescriptions: Bisacodyl [Ducolax] 5 mg PO DAILY PRN #30 ect PRN Reason: Constipation Cefdinir [Omnicef] 300 mg PO BID #14 cap Naproxen [Naprosyn Tab] 250 mg PO Q8 #30 tab - Follow Up Plan Condition: GOOD Disposition: HOME/ ROUTINE Instructions: Ciprofloxacin (By mouth), Naproxen (By mouth), Ureteral Stones ( DC) Additional Instructions: ff up with Dr Cacace next wk ff up with Dr moura in 1-2 wks Referrals: García Moura MD [Staff Provider] - Arnulfo Pereira MD [Staff Provider] - Jn Hinojosa MD [Medical Doctor] -
[2016-08-29 08:28] LABS: CALCIUM 8.4 mg/dL (8.4-10.2); POTASSIUM 4.2 MMOL/L (3.6-5.0)
[2016-08-29] MEDS: diltiaZEM 180 mg/24 Hours CD Cap PO SCH (08:33)
[2016-08-29] MEDS: diltiaZEM 120 mg/24 Hours CD Cap PO SCH (08:34)
[2016-08-29 08:36] VITALS: BP 167/104
--- NOTE | 2016-08-29 10:57 | CP.PCM.PN ---
Subjective - Date & Time of Evaluation Date of Evaluation: 08/29/16 Time of Evaluation: 07:00 - Subjective Subjective: NO CHEST PAIN OR SOB Objective - Vital Signs/Intake and Output Vital Signs (last 24 hours): Temp Pulse Resp BP Pulse Ox 98.8 F 82 20 167/104 H 94 L 08/29/16 07:34 08/29/16 08:35 08/29/16 07:34 08/29/16 08:35 08/29/16 07:34 Intake and Output: 08/29/16 08/29/16 06:59 18:59 Intake Total 1880 Output Total 1200 Balance 680 - Medications Medications: Current Medications Atorvastatin Calcium (Lipitor) 20 mg PO HS [facility] Last Admin: 08/28/16 22:30 Dose: 20 mg Clonidine HCl (Catapres) 0.3 mg PO BID [facility] Last Admin: 08/29/16 08:35 Dose: Not Given Clonidine HCl (Catapres) 0.2 mg PO ACL [facility] Last Admin: 08/28/16 14:22 Dose: 0.2 mg Diltiazem HCl (Cardizem Cd) 180 mg PO DAILY [facility] Last Admin: 08/29/16 08:33 Dose: 180 mg Diltiazem HCl (Cardizem Cd) 120 mg PO DAILY [facility] Last Admin: 08/29/16 08:34 Dose: 120 mg Famotidine (Pepcid) 20 mg IVP DAILY [facility] Last Admin: 08/28/16 09:39 Dose: 20 mg Fenofibrate (Tricor) 145 mg PO DAILY [facility] Last Admin: 08/29/16 08:36 Dose: 145 mg Lactated Ringer's (Lactated Ringer's) 1,000 mls @ 100 mls/hr IV .Q10H [facility] Last Admin: 08/29/16 05:24 Dose: 100 mls/hr Ciprofloxacin (Cipro 400mg/200ml Dsw) 400 mg in 200 mls @ 200 mls/hr IVPB Q12@ 0600,1800 [facility] Last Admin: 08/29/16 05:23 Dose: 200 mls/hr Insulin Human Lispro (Humalog) 0 units SC ACHS [facility] PRN Reason: Protocol Last Admin: 08/29/16 06:53 Dose: Not Given Losartan Potassium (Cozaar) 100 mg PO DAILY [facility] Last Admin: 08/29/16 08:35 Dose: 100 mg Metformin HCl (Glucophage) 500 mg PO TID [facility] Last Admin: 08/28/16 09:49 Dose: Not Given Morphine Sulfate (Morphine) 2 mg IVP Q4 PRN PRN Reason: Pain, moderate (4-7) Last Admin: 08/28/16 04:02 Dose: 2 mg Morphine Sulfate (Morphine) 4 mg IVP Q4 PRN PRN Reason: Pain, severe (8-10) Last Admin: 08/29/16 05:04 Dose: 4 mg Naproxen (Naprosyn Tab) 250 mg PO Q8 [facility] Last Admin: 08/29/16 08:36 Dose: 250 mg Ondansetron HCl (Zofran Inj) 4 mg IVP Q4 PRN PRN Reason: Nausea/Vomiting Tamsulosin HCl (Flomax) 0.4 mg PO DAILY [facility] Last Admin: 08/29/16 08:36 Dose: 0.4 mg - Labs Labs: 08/29/16 06:00 08/29/16 06:00 PT 12.4 Seconds (9.8-13.1) 08/28/16 08:47 INR 1.1 (0.9-1.2) 08/28/16 08:47 APTT 29.9 Seconds (25.6-37.1) 08/28/16 08:47 - Respiratory Exam Respiratory Exam: Clear to Ausculation Bilateral - Cardiovascular Exam Cardiovascular Exam: Irregular Rhythm, +S1, +S2 - Extremities Exam Extremities Exam: Normal Inspection - Additional Findings Additional findings: UROLOGY OPERATIVE REPORT NOTED WITH LEFT URETEROSCOPY WITH STONE REMOVAL Assessment and Plan - Assessment and Plan (Free Text) Assessment: LEFT URETERAL STONE-REMOVED CHRONIC ATRIAL FIBRILLATION HYPERTENSION HYPERLIPIDIEMIA PUD Plan: CONTINUE CARDIZEM, LOSARTEN, CLONIDINE, ATORVASTATIN AND FENOFIBRATE RESUNME ASPIRIN WHEN OK WITH UROLOGY FOR PROBABLE DISCHARGE TODAY
== END 2016-08-29 11:15 | disposition home or self-care (01) ==
LOC: H.ER 01:02 → H.ERHOLD 02:51 → INTOOBSV 02:51 → H.MEDSURG1 05:35
PROVIDERS: ADMIT Internal Medicine; ATTEND Internal Medicine
DX: N13.2 Hydronephrosis with renal and ureteral calculous obstruction (principal); E78.5 Hyperlipidemia, unspecified; E66.9 Obesity, unspecified; Z68.33 Body mass index [BMI] 33.0-33.9, adult; I48.2 Chronic atrial fibrillation; Z79.82 Long term (current) use of aspirin; E86.0 Dehydration; I11.0 Hypertensive heart disease with heart failure; I50.9 Heart failure, unspecified; E78.00 Pure hypercholesterolemia, unspecified; E11.65 Type 2 diabetes mellitus with hyperglycemia
CPT/HCPCS: 36415; 52320; 74022; 74176; 80048; 80053; 81003; 82803; 82948; 83036; 83690; 83735; 84100; 84484; 85025; 85610; 85730; 87086; 93005; 96374; 99282; G0378; J0330; J0696; J0744; J1885; J2001; J2175; J2250; J2270; J2405; J2704; J3010; J7040; J7120

== ENCOUNTER 2016-08-31 04:58 | Inpatient (IN) | payer MEDICARE, BC ==
[2016-08-31] MEDS ORDERED: Sodium Chloride 0.9% 1,000 ML IV STA ×2 (05:07→11:00)
[2016-08-31 05:45] LABS: HEMATOCRIT 40.7 % (35.0-51.0); MEAN CELL VOLUME 86.1 fl (80.0-94.0); MEAN CORPUSCULAR HEMOGLOBIN 27.7 pg (27.0-31.0); MEAN CORPUSCULAR HGB CONC 32.1 g/dL (33.0-37.0); RED CELL DISTRIBUTION WIDTH 15.4 % (11.5-14.5); WHITE BLOOD COUNT 12.4 K/uL (4.8-10.8)
[2016-08-31 05:52] LABS: POTASSIUM 4.5 MMOL/L (3.6-5.0)
--- NOTE | 2016-08-31 05:56 | ED PDOC ---
HPI: Abdomen Time Seen by Provider: 08/31/16 05:06 Chief Complaint (Nursing): Male Genitourinary Chief Complaint (Provider): left flank pain History Per: Patient History/Exam Limitations: no limitations Onset/Duration Of Symptoms: Hrs Outside of [place] travel?: No Current Symptoms Are (Timing): Still Present Additional Complaint(s): 75yo male recently diagnosed with kidney stone presents to the ED with c/o left flank pain that worsened overnight. did not give patient any medications at home. No other medical complaints. Past Medical History Reviewed: Historical Data, Nursing Documentation, Vital Signs Vital Signs: Last Vital Signs Temp 98.8 F 08/31/16 05:07 Pulse 129 H 08/31/16 06:19 Resp 19 08/31/16 06:19 BP 187/90 H 08/31/16 06:19 Pulse Ox 96 08/31/16 06:33 - Medical History PMH: Atrial Fibrillation, CHF, Gastritis, HTN, Hypercholesterolemia, Kidney Stones, Pneumonia Denies: HIV, Chronic Kidney Disease - Family History Family History: States: No Known Family Hx - Home Medications Home Medications: Ambulatory Orders Medication Instructions Recorded Ciprofloxacin HCl [Cipro] 250 mg PO BID #14 tab 08/27/16 Fenofibrate [Tricor] 134 mg PO DAILY 08/27/16 Linagliptin [Tradjenta] 5 mg PO DAILY 08/27/16 Tamsulosin [Flomax] 0.4 mg PO DAILY #14 cap 08/27/16 cloNIDine [Catapres] 0.3 mg PO BID 08/27/16 metFORMIN [glucOPHAGE] 500 mg PO TID 08/27/16 traMADol [Ultram] 50 mg PO TID PRN #15 tab 08/27/16 Diltiazem HCl [Diltiazem 24Hr Cd] 300 mg PO DAILY 08/28/16 Telmisartan/Hydrochlorothiazid 1 tab PO DAILY 08/28/16 [Telmisartan-Hctz 80-25 mg Tab] Cefdinir [Omnicef] 300 mg PO BID #14 cap 08/29/16 Naproxen [Naprosyn Tab] 250 mg PO Q8 #0 tab 08/29/16 Simvastatin [Simvastatin] 20 mg PO DAILY 08/31/16 cloNIDine [Catapres] 0.2 mg PO DAILY 08/31/16 - Allergies Allergies/Adverse Reactions: Allergies Allergy/AdvReac Type Severity Reaction Status Date / Time dabigatran etexilate Allergy hot flashes Verified 08/31/16 05:07 [From Pradaxa] Review of Systems ROS Statement: Except As Marked, All Systems Reviewed And Found Negative Gastrointestinal: Positive for: Abdominal Pain (left flank ) Physical Exam - Reviewed Nursing Documentation Reviewed: Yes Vital Signs Reviewed: Yes - Physical Exam Appears: Positive for: Well, No Acute Distress Head Exam: Positive for: ATRAUMATIC, NORMAL INSPECTION, NORMOCEPHALIC Skin: Positive for: Normal Color, Warm, Dry Eye Exam: Positive for: Normal appearance, EOMI, PERRL ENT: Positive for: Normal ENT Inspection Neck: Positive for: Normal, Painless ROM, Supple Cardiovascular/Chest: Positive for: Regular Rate, Rhythm. Negative for: Murmur , Tachycardia Respiratory: Positive for: Normal Breath Sounds. Negative for: Wheezing, Respiratory Distress Gastrointestinal/Abdominal: Positive for: Soft, Tenderness (left flank ) Back: Positive for: L CVA Tenderness. Negative for: R CVA Tenderness Extremity: Positive for: Normal ROM. Negative for: Deformity, Swelling Neurologic/Psych: Positive for: Alert, Oriented - Laboratory Results Result Diagrams: 08/31/16 05:25 08/31/16 05:25 - ECG O2 Sat by Pulse Oximetry: 96 Pulse Ox Interpretation: Normal (RA) Medical Decision Making Medical Decision Makin: Impression: kidney stone, r/o dissection Plan: CT angio chest/abdomen/pelvis Labs Toradol 30mg IVP and 15mg IVP, IVF reassess Patient s/o to Dr. Alvarez at [address] Scribe Attestation: Documented by Alice De Luna acting as a scribe for Stephon Moore MD. Provider Scribe Attestation: All medical record entries made by the Scribe were at my direction and personally dictated by me. I have reviewed the chart and agree that the record accurately reflects my personal performance of the history, physical exam, medical decision making, and the department course for this patient. I have also personally directed, reviewed, and agree with the discharge instructions and disposition. Disposition - Clinical Impression Clinical Impression: Abdominal pain - Patient ED Disposition Is Patient to be Admitted: Transfer of Care - Disposition Referrals: García Moura MD [Staff Provider] - Disposition: Transfer of Care Disposition Time: 07:00 Condition: STABLE Patient Signed Over To: Jada Alvarez Handoff Comments: pending CT
[2016-08-31 07:03] LABS: PARTIAL THROMBOPLASTIN TIME 32.9 Seconds (25.6-37.1)
--- NOTE | 2016-08-31 07:17 | ED PDOC ---
- Laboratory Results Result Diagrams: 08/31/16 05:25 08/31/16 05:25 - ECG O2 Sat by Pulse Oximetry: 97 (RA) Pulse Ox Interpretation: Normal - Physician Consult Information Physician Contacted: Jn Hinojosa Outcome Of Conversation: Stone removed on Wednesday, inflammatory changes, CT findings c/w. Medical Decision Making Medical Decision Makin:00 Patient was signed out to me by Stephon Moore MD pending CT scan, reevaluation and final disposition. 08:30 Reevaluation: Patient remains tachycardic, prednisone 20 mg administered IV flush Scribe Attestation: Documented by Jada Bruce, acting as a scribe for Jada Alvarez MD. Provider Scribe Attestation: All medical record entries made by the Scribe were at my direction and personally dictated by me. I have reviewed the chart and agree that the record accurately reflects my personal performance of the history, physical exam, medical decision making, and the department course for this patient. I have also personally directed, reviewed, and agree with the discharge instructions and disposition. Disposition - Clinical Impression Clinical Impression: Uncontrolled atrial fibrillation, Atrial fibrillation with rapid ventricular response - POA Present On Arrival: None - Disposition Disposition: Hospitalized as Observation Patient Disposition Time: 12:26 Condition: STABLE
[2016-08-31] MEDS ORDERED: Sodium Chloride 0.9% 50 ML IV ONE (07:22)
[2016-08-31] MEDS ORDERED: Iodixanol 320 MG/ML 100 ML BOTTLE IV ONE (07:22)
--- NOTE | 2016-08-31 10:19 | CT ---
PROCEDURE: CT Angiography Chest, Abdomen and Pelvis with and without intravenous contrast HISTORY: flank pain, r/o dissection COMPARISON: None. TECHNIQUE: Contiguous axial images of the chest, abdomen and pelvis were obtained in the phase of aortic enhancement. A noncontrast enhanced CT of the chest was also obtained to evaluate for possible intramural thrombus. Coronal and sagittal reformats were generated. IV dose administered: 95 mL of Visipaque 320 Radiation dose: Total exam DLP = 1910.54 mGy-cm. This CT exam was performed using one or more of the following dose reduction techniques: Automated exposure control, adjustment of the mA and/or kV according to patient size, and/or use of iterative reconstruction technique. FINDINGS: CT ANGIOGRAPHY OF THE CHEST WITH & WITHOUT CONTRAST: AORTA (CHEST AND ABDOMEN): The thoracic and abdominal aorta are unremarkable, without aneurysm, dissection or rupture. No intramural thrombus identified in the thoracic aorta on the non-contrast ct of the chest. The celiac axis, superior mesenteric artery, inferior mesenteric artery and the renal arteries are widely patent. The pelvic arteries are unremarkable. LUNGS: No evidence of acute pathology in the lungs. MEDIASTINUM: Unremarkable. Normal caliber aorta and pulmonary arterial trunk. No aortic dissection. The heart is mildly to moderately enlarged. LYMPH NODES: Unremarkable. PLEURA: Unremarkable. No pneumothorax. No pleural fluid. BONES: Unremarkable. OTHER FINDINGS: None. CT ANGIOGRAPHY OF THE ABDOMEN AND PELVIS WITH CONTRAST: LIVER: No evidence of acute pathology in the liver. Mild to moderate fatty liver infiltration is seen. The portal vein is patent. GALLBLADDER AND BILE DUCTS: Unremarkable. PANCREAS: Atrophic changes of the pancreas with fatty replacement is seen. No CT evidence of pancreatitis. The main pancreatic duct is not dilated. SPLEEN: Unremarkable. ADRENALS: Unremarkable. No mass. KIDNEYS AND URETERS: Moderate left perinephric stranding seen. There is [id number] delayed enhancement of the left kidney. Mild left hydronephrosis and hydroureter seen without evidence of obstructing stone. The differential diagnosis includes recently passed stone versus infection or neoplasm in the collecting system. VASCULATURE: Unremarkable. No aortic aneurysm. STOMACH AND BOWEL: Unremarkable. No obstruction. No gross mural thickening. APPENDIX: Normal appendix. PERITONEUM: Unremarkable. No free fluid. No free air. LYMPH NODES: Unremarkable. No enlarged lymph nodes. BLADDER: Unremarkable. REPRODUCTIVE: Unremarkable. BONES: No acute fracture. OTHER FINDINGS: None. IMPRESSION: No evidence of aortic dissection. No evidence of aneurysm. No evidence of central pulmonary embolus. Moderate left perinephric stranding. Mild left hydronephrosis and hydroureter without evidence of obstructing stone. The differential diagnosis includes recently passed stone versus infection or neoplasm in the left renal collecting system. Further assessment is suggested. Otherwise no evidence of acute pathology in the abdomen and pelvis.
[2016-08-31] MEDS ORDERED: cefTRIAXone (Rocephin) 1 gm Inj ONE (11:06)
[2016-08-31 11:48] LABS: RBC URINE 74 /hpf (0-3); URINE BILIRUBIN NEGATIVE (NEGATIVE); URINE BLOOD MODERATE (NEGATIVE); URINE COLOR YELLOW (YELLOW); URINE GLUCOSE (UA) >=500 mg/dL (Normal); URINE KETONE 20 mg/dL (NEGATIVE); URINE LEUKOCYTE ESTERASE NEG Leu/uL (Negative); URINE PROTEIN 100 mg/dL (NEGATIVE); URINE UROBILINOGEN 0.2-1.0 mg/dL (0.2-1.0); WBC URINE 4 /hpf (0-5)
[2016-08-31 11:57] LABS: VENOUS BLOOD GAS BASE EXCESS 1.2 mmol/L (0.0-2.0); VENOUS BLOOD GAS PCO2 44 mmHg (40-60); VENOUS BLOOD PH 7.39 (7.32-7.43)
--- NOTE | 2016-08-31 12:17 | RAD ---
HISTORY: afib rvr COMPARISON: Comparison is made to the previous study dated 08/27/2016 FINDINGS: LUNGS: No active pulmonary disease. PLEURA: No significant pleural effusion identified, no pneumothorax apparent. CARDIOVASCULAR: Normal. OSSEOUS STRUCTURES: No significant abnormalities. VISUALIZED UPPER ABDOMEN: Normal. OTHER FINDINGS: None. IMPRESSION: No active disease.
--- NOTE | 2016-08-31 12:43 | CP.PCM.HP ---
History of Present Illness - History of Present Illness History of Present Illness: CC stomach pain HPI: 75M PMH AFIB RVR, HTN, HLD, NIDDMII, CHF, hx perforated ulcer presents with moderate generalized nondescript nonradiating pain. Patient had a cysto ureteroscopy stone basket 4 days prior to admission. For the past day or so patient has had a loss of appetite, generalized pain, subjective fever, and chills. WBC 12.2. Afebrile. UA is Negative. No active disease on chest XR. Patient also presents with AFIB RVR rate 130-150 in ER. Patient on Cardizem drip. Patient to be started on empiric antibiotics ER EKG tachycardia, AFIB RVR. rate 189. Per , does not wish to have any anticoagulation. ROS: per HPI, 12 systems reviewed and negative by me PMD: Dr. Moura Paint Line Supervisor: Dr. Pereira PMSH: AFIB RVR, HTN, NIDDMII, CHF, hx perforated ulcer, arthroscopy FH: denies SH: Denies tobacco, ETOH, IVDU MEDS: as below and reviewed ALLERGIES: NKDA EXAM: Vitals stable and reviewed GEN: WDWN, alert, cooperative HEENT: NCAT, PERRL, EOMI Neck: supple, no lymphadenopathy CARDIO: +S1S2, tachy, irreg irreg LUNG: CTAB, NO W/R/R ABD: midline scar. soft, NT, ND, no masses, no HSM EXT: +1 edema B/L LE, pedal pulses equal, regular Neuro: AAOx3, Strength equal, bilateral UE/LE Psych: normal mood, normal affect LABS 08/31/16 05:25 08/31/16 05:25 RADS EKG tachycardia, AFIB RVR Active Medications 08/31/16 06:41 Sodium Chloride 0.9% 100 ml diltiaZEM [Cardizem] 125 mg IV 5 mg/hr 08/31/16 12:45 Tamsulosin [Flomax] 0.4 mg PO DAILY cloNIDine [Catapres] 0.3 mg PO Q12 08/31/16 13:00 metFORMIN [glucOPHAGE] 500 mg PO TID 09/01/16 09:00 Atorvastatin [Lipitor] 10 mg PO DAILY Enoxaparin [Lovenox] 40 mg SC DAILY Fenofibrate [Tricor] 134 mg PO DAILY Losartan [Cozaar] 100 mg PO DAILY SITagliptin [Januvia] 100 mg PO DAILY cefTRIAXone [Rocephin] 1 gm Sodium Chloride 0.9% 100 ml IVPB DAILY cloNIDine [Catapres] 0.2 mg PO DAILY diltiaZEM CD [Cardizem CD] 300 mg PO DAILY hydroCHLOROthiazide [Hydrodiuril] 25 mg PO DAILY ASSESSMENT AND PLAN: 75M PMH AFIB RVR, HTN, HLD, NIDDMII, CHF, hx perforated ulcer presents with moderate generalized nondescript nonradiating pain. Patient had a cysto ureteroscopy stone basket 4 days prior to admission. For the past day or so patient has had a loss of appetite, generalized pain, subjective fever, and chills. WBC 12.2. Afebrile. UA is Negative. No active disease on chest XR. Patient also presents with AFIB RVR rate 130-150 in ER. Patient on Cardizem drip. Patient to be started on empiric antibiotics AFIB RVR uncontrolled, unspecified type EKG +AFIBRVR pt on cardizem drip pt home dose Cardizem LA 300 mg po daily, can likely switch over tomorrow Cardiology consult Dr. Pereira s/p cysto ureteroscopy stone basket empiric abx Ceftriaxone elevated WBC 12.2 afebrile subjective fever and chills UA neg Cultures pending Hypertension pt on Micardis at home, placed on cozaar while inpt clonidine 0.3 BID, and 0.2 once a day Hyperlipidemia, Hypertrig continue atorvastatin for home Simvastatin continue fenofibrate DM continue Metformin pt also on Tradjenta at home will place on accuchecks low dose ISS Heart healthy, mod carbohydrate diet VTE ppx lovenox Present on Admission - Present on Admission Any Indicators Present on Admission: No Past Patient History - Infectious Disease Hx of Infectious Diseases: None - Tetanus Immunizations Tetanus Immunization: Unknown - Past Medical History & Family History Past Medical History?: Yes - Past Social History Smoking Status: Former Smoker - CARDIAC Hx Cardiac Disorders: Yes (afib, CHF, huigh cholesterol, HTN) - PULMONARY Hx Respiratory Disorders: Yes (pneumonia) - NEUROLOGICAL Hx Neurological Disorder: No - HEENT Hx HEENT Problems: No - RENAL Hx Chronic Kidney Disease: No - ENDOCRINE/METABOLIC Hx Endocrine Disorders: Yes (DM) - HEMATOLOGICAL/ONCOLOGICAL Hx Human Immunodeficiency Virus (HIV): No - INTEGUMENTARY Hx Dermatological Problems: No - MUSCULOSKELETAL/RHEUMATOLOGICAL Hx Musculoskeletal Disorders: No Hx Falls: No - GASTROINTESTINAL Hx Gastritis: Yes - GENITOURINARY/GYNECOLOGICAL Hx Genitourinary Disorders: No Hx Urinary Tract Infection: No - PSYCHIATRIC Hx Psychophysiologic Disorder: No Hx Substance Use: No - SURGICAL HISTORY Hx Surgeries: Yes Other/Comment: Perforated Ulcer with Sx 1990 - ANESTHESIA Hx Anesthesia: Yes Hx Anesthesia Reactions: No Hx Malignant Hyperthermia: No Meds Allergies/Adverse Reactions: Allergies Allergy/AdvReac Type Severity Reaction Status Date / Time dabigatran etexilate Allergy hot flashes Verified 08/31/16 05:07 [From Pradaxa] Results - Vital Signs Recent Vital Signs: Last Vital Signs Temp 98.5 F 08/31/16 10:22 Pulse 123 H 08/31/16 12:32 Resp 18 08/31/16 10:22 BP 160/100 H 08/31/16 12:32 Pulse Ox 97 08/31/16 12:26 - Labs Result Diagrams: 08/31/16 05:25 08/31/16 05:25
[2016-08-31] MEDS ORDERED: [UNRECOGNIZED DRUG - OTHER] PO SCH (12:45)
[2016-08-31 14:59] VITALS: BMI 36.9
--- NOTE | 2016-08-31 17:34 | CP.PCM.CON ---
History of Present Illness - History of Present Illness History of Present Illness: THE PATIENT IS A 75 YEAR OLD MALE WITH A HISTORY OF CHRONIC ATRIAL FIBRILLATION , HYPERTENSION, HYPERLIPIDEMIA, PUD, DM, BPH AND RECENT KIDNEY STONE. HE WAS JUST ADMITTED TO [facility] 08/28/16 FOR A LEFT URETERAL STONE AND UNDERWENT A LEFT UTEROSCOPY WITH REMOVAL OF THE STONE AND DISCHARGED 08/29/16. THE PATIENT SINCE THEN COMPLAINS OF FEELING WEAK AND HAD CONSTIPATION WITH ABDOMINAL PAIN AND HE IMPROVED AFTER TAKING CITRATE OF MAGNESIUM. NOW HAD FEVERS AND CHILLS AND LEFT FLANK PAIN AGAIN AND WENT TO THE ER THIS AM. IN THE ER HE WAS FOUND TO HAVE ATRIAL FIBRILLATION WITH RVR AND WAS ADMITTED. HE DENIES CHEST PAIN BUT HAD PAPLITATIONS AND SOME SOB. HE NOW FEELS A LITTLE BETTER AFTER IV CARDIZEM BOTH A BOLUS AND THEN A DRIP. CARDIOLOGY WAS ASKED TO TREAT AND FOLLOW HIM. Past Patient History - Infectious Disease Hx of Infectious Diseases: None - Tetanus Immunizations Tetanus Immunization: Unknown - Past Medical History & Family History Past Medical History?: Yes - Past Social History Smoking Status: Former Smoker - CARDIAC Hx Cardiac Disorders: Yes (afib, CHF, huigh cholesterol, HTN) - PULMONARY Hx Respiratory Disorders: Yes (pneumonia) - NEUROLOGICAL Hx Neurological Disorder: No - HEENT Hx HEENT Problems: No - RENAL Hx Chronic Kidney Disease: No - ENDOCRINE/METABOLIC Hx Endocrine Disorders: Yes (DM) - HEMATOLOGICAL/ONCOLOGICAL Hx Human Immunodeficiency Virus (HIV): No - INTEGUMENTARY Hx Dermatological Problems: No - MUSCULOSKELETAL/RHEUMATOLOGICAL Hx Musculoskeletal Disorders: No Hx Falls: No - GASTROINTESTINAL Hx Gastritis: Yes - GENITOURINARY/GYNECOLOGICAL Hx Genitourinary Disorders: No Hx Urinary Tract Infection: No - PSYCHIATRIC Hx Psychophysiologic Disorder: No Hx Substance Use: No - SURGICAL HISTORY Hx Surgeries: Yes Other/Comment: Perforated Ulcer with Sx 1990 - ANESTHESIA Hx Anesthesia: Yes Hx Anesthesia Reactions: No Hx Malignant Hyperthermia: No Meds Allergies/Adverse Reactions: Allergies Allergy/AdvReac Type Severity Reaction Status Date / Time dabigatran etexilate Allergy hot flashes Verified 08/31/16 05:07 [From Pradaxa] - Medications Medications: Current Medications Aspirin (Ecotrin) 81 mg PO DAILY [facility] Atorvastatin Calcium (Lipitor) 10 mg PO DAILY [facility] Clonidine HCl (Catapres) 0.3 mg PO Q12 [facility] Last Admin: 08/31/16 12:53 Dose: 0.3 mg Enoxaparin Sodium (Lovenox) 40 mg SC DAILY [facility] PRN Reason: Protocol Fenofibrate (Tricor) 145 mg PO DAILY [facility] Hydrochlorothiazide (Hydrodiuril) 25 mg PO DAILY [facility] Diltiazem HCl 125 mg/ Sodium (Chloride) 125 mls @ 5 mls/hr IV .Q24H ONE; 5 MG/ HR PRN Reason: Protocol Stop: 09/01/16 06:40 Last Admin: 08/31/16 06:52 Dose: 5 mls/hr Ceftriaxone Sodium 1 gm/ (Sodium Chloride) 100 mls @ 100 mls/hr IVPB DAILY [facility] Losartan Potassium (Cozaar) 100 mg PO DAILY [facility] Metformin HCl (Glucophage) 500 mg PO TID [facility] Sitagliptin Phosphate (Januvia) 100 mg PO DAILY [facility] Tamsulosin HCl (Flomax) 0.4 mg PO DAILY [facility] Physical Exam - Cardiovascular Exam Cardiovascular Exam: Tachycardia, Irregular Rhythm, +S1, +S2 - GI/Abdominal Exam GI & Abdominal Exam: Distended, Normal Bowel Sounds, Tenderness - Extremities Exam Extremities exam: Positive for: pedal edema - Additional Findings Additional findings: EKG ATRIAL FIBRILLATION WITH RVR CXR NAD CT OF CHEST AND ABDOMEN REPORT NOTED TROPONIN NEGATIVE X 2 WBC 12.4 K+ 4.5 Results - Vital Signs Recent Vital Signs: Last Vital Signs Temp 98.6 F 08/31/16 16:14 Pulse 91 H 08/31/16 16:14 Resp 20 08/31/16 16:14 BP 149/92 H 08/31/16 16:14 Pulse Ox 96 08/31/16 16:14 - Labs Result Diagrams: 09/01/16 06:00 09/01/16 06:00 Labs: Laboratory Results - last 24 hr 08/31/16 14:22 Troponin I 0.0180 Assessment & Plan - Assessment and Plan (Free Text) Assessment: CHRONIC ATRIAL FIBRILLATION NOW WITH RVR HYPERTENSION HYPERLIPIDEMIA RECENT LEFT URETERAL STONE REMOVAL DM Plan: 02, IV CARDIZEM, LOSARTAN, CLONIDINE, ATORVASTATIN, ASPIRIN AND IV ANTIBIOTICS WILL OBSERVE RHYTHM TODAY ON IV CARDIZEM AND CONSIDER CHANGE TO ORAL CARDIZEM IF HEART RATE IS BETTER NOTE: THE PATIENT IS NOT ON ANTICOAGULATION MEDS PER HIM AND THE ELVIRA THE FAMILY STATES THAT WARFARIN AND PRADAXA HIS STOMACH
[2016-08-31] MEDS: Enoxaparin 40 mg Syringe SC SCH (17:45)
[2016-09-01] MEDS ORDERED: Alum-Mag Hydrox-Simethicone Susp (30 mL) PO ONE (04:36)
[2016-09-01] MEDS ORDERED: Metoprolol 1 mg/ml Inj IVP ONE ×2 (06:42→07:00)
[2016-09-01 06:44] LABS: BASO % 0.1 % (0.0-2.0); BLOOD UREA NITROGEN 18 mg/dl (9-20); CALCIUM 8.3 mg/dL (8.4-10.2); CARBON DIOXIDE 32 mmol/L (22-30); CHLORIDE 100 mmol/L (98-107); CHOLESTEROL 87 mg/dL (0-199); EOS % 0.4 % (0.0-4.0); GFR AFRICAN-AMERICAN > 60; GLUCOSE,RANDOM 180 mg/dL (75-110); HEMATOCRIT 42.1 % (35.0-51.0); LYMPH # 0.3 K/uL (1.0-4.3); MEAN CELL VOLUME 85.3 fl (80.0-94.0); MEAN CORPUSCULAR HEMOGLOBIN 27.7 pg (27.0-31.0); MEAN CORPUSCULAR HGB CONC 32.5 g/dL (33.0-37.0); MEAN PLATELET VOLUME 8.5 fl (7.2-11.7); MONO # 1.1 K/uL (0.0-0.8); MONO % 9.8 % (0.0-10.0); NEUT # 9.4 K/uL (1.8-7.0); NEUT % 86.7 % (50.0-75.0); PLATELET COUNT 236 K/uL (130-400); POTASSIUM 3.4 MMOL/L (3.6-5.0); RED CELL DISTRIBUTION WIDTH 15.5 % (11.5-14.5); SODIUM 142 mmol/l (132-148); WHITE BLOOD COUNT 10.9 K/uL (4.8-10.8)
[2016-09-01] MEDS ORDERED: cefTRIAXone 1,000 MG in PED IV SYRINGE 1 SYR IVPB SCH (09:00)
[2016-09-01] MEDS ORDERED: diltiaZEM 300 mg/24 Hours CD Cap PO SCH (09:00)
--- NOTE | 2016-09-01 09:12 | CP.PCM.PN ---
Subjective - Date & Time of Evaluation Date of Evaluation: 09/01/16 Time of Evaluation: 08:15 - Subjective Subjective: NO CHEST PAIN OR SOB FEWER PALPITATIONS STILL WITH ABDOMINAL DISCOMFORT Objective - Vital Signs/Intake and Output Vital Signs (last 24 hours): Temp Pulse Resp BP Pulse Ox 98.1 F 140 H 21 135/92 H 98 09/01/16 05:16 09/01/16 06:52 09/01/16 05:16 09/01/16 06:52 09/01/16 05:16 Intake and Output: 09/01/16 09/01/16 06:59 18:59 Intake Total 125 Balance 125 - Medications Medications: Current Medications Acetaminophen (Tylenol 325mg Tab) 650 mg PO Q4 PRN PRN Reason: Pain, moderate (4-7) Last Admin: 08/31/16 20:28 Dose: 650 mg Aspirin (Ecotrin) 81 mg PO DAILY [facility] Last Admin: 08/31/16 17:45 Dose: 81 mg Atorvastatin Calcium (Lipitor) 10 mg PO DAILY [facility] Last Admin: 08/31/16 17:44 Dose: 10 mg Clonidine HCl (Catapres) 0.3 mg PO Q12 [facility] Last Admin: 08/31/16 21:59 Dose: 0.3 mg Diltiazem HCl (Cardizem Cd) 300 mg PO DAILY [facility] Enoxaparin Sodium (Lovenox) 40 mg SC DAILY [facility] PRN Reason: Protocol Last Admin: 08/31/16 17:45 Dose: 40 mg Fenofibrate (Tricor) 145 mg PO DAILY [facility] Last Admin: 08/31/16 17:46 Dose: 145 mg Hydrochlorothiazide (Hydrodiuril) 25 mg PO DAILY [facility] Last Admin: 08/31/16 17:43 Dose: 25 mg Ceftriaxone Sodium 1 gm/ (Sodium Chloride) 100 mls @ 100 mls/hr IVPB DAILY [facility] Diltiazem HCl 125 mg/ Sodium (Chloride) 125 mls @ 15 mls/hr IV .Q8H20M ONE; 15 MG/HR PRN Reason: Protocol Stop: 09/01/16 15:09 Last Admin: 09/01/16 07:07 Dose: 15 mg/hr, 15 mls/hr Metformin HCl (Glucophage) 500 mg PO TID [facility] Last Admin: 08/31/16 17:43 Dose: 500 mg Metoprolol Tartrate (Lopressor) 50 mg PO Q12 [facility] Ondansetron HCl (Zofran Inj) 4 mg IVP Q4 PRN PRN Reason: Nausea/Vomiting Last Admin: 09/01/16 04:17 Dose: 4 mg Sitagliptin Phosphate (Januvia) 100 mg PO DAILY [facility] Last Admin: 08/31/16 17:40 Dose: 100 mg Tamsulosin HCl (Flomax) 0.4 mg PO DAILY [facility] Last Admin: 08/31/16 17:42 Dose: 0.4 mg - Labs Labs: 09/01/16 06:00 09/01/16 06:00 PT 14.9 Seconds (9.8-13.1) H 08/31/16 06:10 INR 1.3 (0.9-1.2) H 08/31/16 06:10 APTT 32.9 Seconds (25.6-37.1) 08/31/16 06:10 - Respiratory Exam Respiratory Exam: Clear to Ausculation Bilateral - Cardiovascular Exam Cardiovascular Exam: Tachycardia, Irregular Rhythm, +S1, +S2 - GI/Abdominal Exam GI & Abdominal Exam: Distended, Tenderness, Normal Bowel Sounds - Additional Findings Additional findings: 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
[2016-09-01] MEDS: diltiaZEM 300 mg/24 Hours CD Cap PO SCH (09:33)
[2016-09-01] MEDS: Enoxaparin 40 mg Syringe SC SCH (09:40)
[2016-09-01] MEDS ORDERED: Potassium Chloride 20 mEq ER Tab PO ONE (09:51)
[2016-09-01 10:07] LABS: NEUTROPHIL 83 % (42-75); TOTAL CELLS COUNTED 100
[2016-09-01 10:08] LABS: PLATELET CLUMPS PRESENT
--- NOTE | 2016-09-01 10:56 | CP.PCM.PN ---
Subjective - Date & Time of Evaluation Date of Evaluation: 09/01/16 Time of Evaluation: 10:54 - Subjective Subjective: patient seen examined bedside also at bedside pt somnolent states he does not feel improved from yesterday is extremely preoccupied with patient's appetite. It was explained that our main concern is his heart rate. 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 Pt on Cardizem drip, Lopressor, and Losartan was discontinued Pt was also seen by Cardiology today, discussed, recommendations appreciated and followed. No acute distress at thist robert will follow closely Objective - Vital Signs/Intake and Output Vital Signs (last 24 hours): Temp Pulse Resp BP Pulse Ox 97.4 F L 97 H 18 168/85 H 97 09/01/16 08:00 09/01/16 09:33 09/01/16 08:00 09/01/16 09:33 09/01/16 08:00 EXAM: Vitals stable and reviewed GEN: WDWN, alert, cooperative HEENT: NCAT, PERRL, EOMI Neck: supple, no lymphadenopathy CARDIO: +S1S2, tachy, irreg irreg LUNG: CTAB, NO W/R/R ABD: midline scar. soft, NT, ND, no masses, no HSM EXT: +1 edema B/L LE, pedal pulses equal, regular Neuro: AAOx3, Strength equal, bilateral UE/LE Psych: normal mood, normal affect Intake and Output: 09/01/16 09/01/16 06:59 18:59 Intake Total 545 Balance 545 - Medications Medications: Current Medications Acetaminophen (Tylenol 325mg Tab) 650 mg PO Q4 PRN PRN Reason: Pain, moderate (4-7) Last Admin: 08/31/16 20:28 Dose: 650 mg Aspirin (Ecotrin) 81 mg PO DAILY [facility] Last Admin: 09/01/16 09:35 Dose: 81 mg Atorvastatin Calcium (Lipitor) 10 mg PO DAILY [facility] Last Admin: 09/01/16 09:37 Dose: 10 mg Clonidine HCl (Catapres) 0.3 mg PO Q12 [facility] Last Admin: 09/01/16 09:34 Dose: 0.3 mg Diltiazem HCl (Cardizem Cd) 300 mg PO DAILY [facility] Last Admin: 09/01/16 09:33 Dose: 300 mg Enoxaparin Sodium (Lovenox) 40 mg SC DAILY [facility] PRN Reason: Protocol Last Admin: 09/01/16 09:40 Dose: 40 mg Fenofibrate (Tricor) 145 mg PO DAILY [facility] Last Admin: 08/31/16 17:46 Dose: 145 mg Hydrochlorothiazide (Hydrodiuril) 25 mg PO DAILY [facility] Last Admin: 09/01/16 09:37 Dose: 25 mg Ceftriaxone Sodium 1 gm/ (Sodium Chloride) 100 mls @ 100 mls/hr IVPB DAILY [facility] Diltiazem HCl 125 mg/ Sodium (Chloride) 125 mls @ 15 mls/hr IV .Q8H20M ONE; 15 MG/HR PRN Reason: Protocol Stop: 09/01/16 15:09 Last Admin: 09/01/16 07:07 Dose: 15 mg/hr, 15 mls/hr Metformin HCl (Glucophage) 500 mg PO TID [facility] Last Admin: 09/01/16 09:37 Dose: Not Given Metoprolol Tartrate (Lopressor) 50 mg PO Q12 [facility] Last Admin: 09/01/16 09:40 Dose: 50 mg Ondansetron HCl (Zofran Inj) 4 mg IVP Q4 PRN PRN Reason: Nausea/Vomiting Last Admin: 09/01/16 04:17 Dose: 4 mg Sitagliptin Phosphate (Januvia) 100 mg PO DAILY [facility] Last Admin: 09/01/16 09:38 Dose: Not Given Tamsulosin HCl (Flomax) 0.4 mg PO DAILY [facility] Last Admin: 09/01/16 09:36 Dose: 0.4 mg - Labs Labs: 09/01/16 06:00 09/01/16 06:00 PT 14.9 Seconds (9.8-13.1) H 08/31/16 06:10 INR 1.3 (0.9-1.2) H 08/31/16 06:10 APTT 32.9 Seconds (25.6-37.1) 08/31/16 06:10 Assessment and Plan - Assessment and Plan (Free Text) Plan: 75M PMH AFIB RVR, HTN, HLD, NIDDMII, CHF, hx perforated ulcer presents with moderate generalized nondescript nonradiating pain. Patient had a cysto ureteroscopy stone basket 4 days prior to admission. For the past day or so patient has had a loss of appetite, generalized pain, subjective fever, and chills. WBC 12.2. Afebrile. UA is Negative. No active disease on chest XR. Patient also presents with AFIB RVR rate 130-150 in ER. Patient on Cardizem drip. 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 Lopressor started, Losartan discontinued. Cardizem PO, attempt to titrate off gtt. AFIB RVR uncontrolled, unspecified type EKG +AFIBRVR pt on cardizem drip, will continue and start PO cardizem to titrate off drip Lopressor started by Cardiology, Losartan discontinued Cardiology consult Dr. Pereira appreciated and followed BOLT LABELER overnight, HR improved today, will continue to monitor s/p cysto ureteroscopy stone basket empiric abx Ceftriaxone elevated WBC 12.2, 10.9 today, improving afebrile subjective fever and chills UA neg Cultures pending Hypertension Started Lopressor this admission, D/C Losartan clonidine 0.3 BID, and 0.2 once a day Hyperlipidemia, Hypertrig continue atorvastatin for home Simvastatin continue fenofibrate DM continue Metformin pt also on Tradjenta at home will place on accuchecks low dose ISS Heart healthy, mod carbohydrate diet VTE ppx lovenox
--- NOTE | 2016-09-01 13:41 | CARD ---
APPROVED REPORT EKG Measurement Heart [id number] <Conclusion> Atrial fibrillation with rapid ventricular response Nonspecific ST and T wave abnormality Abnormal ECG
[2016-09-02 06:58] LABS: BASO % 0.4 % (0.0-2.0); EOS # 0.2 K/uL (0.0-0.7); EOS % 2.1 % (0.0-4.0); HEMATOCRIT 39.7 % (35.0-51.0); LYMPH % 10.1 % (20.0-40.0); MEAN CELL VOLUME 85.6 fl (80.0-94.0); MEAN CORPUSCULAR HEMOGLOBIN 27.6 pg (27.0-31.0); MEAN CORPUSCULAR HGB CONC 32.3 g/dL (33.0-37.0); MEAN PLATELET VOLUME 8.7 fl (7.2-11.7); MONO # 1.1 K/uL (0.0-0.8); MONO % 10.8 % (0.0-10.0); NEUT # 7.7 K/uL (1.8-7.0); NEUT % 76.6 % (50.0-75.0); RED CELL DISTRIBUTION WIDTH 15.7 % (11.5-14.5)
[2016-09-02 07:04] LABS: BLOOD UREA NITROGEN 29 mg/dl (9-20); CALCIUM 8.2 mg/dL (8.4-10.2); CARBON DIOXIDE 27 mmol/L (22-30); CHLORIDE 102 mmol/L (98-107); GFR AFRICAN-AMERICAN > 60; GLUCOSE,RANDOM 142 mg/dL (75-110); MAGNESIUM 2.5 MG/DL (1.6-2.3); POTASSIUM 4.5 MMOL/L (3.6-5.0); SODIUM 138 mmol/l (132-148)
[2016-09-02] MEDS: diltiaZEM 300 mg/24 Hours CD Cap PO SCH (08:39)
[2016-09-02] MEDS: Enoxaparin 40 mg Syringe SC SCH (08:39)
[2016-09-02] MEDS ORDERED: Digoxin 500 mcg/2ml (0.5 mg/2ml) Inj IVP STA (09:23)
[2016-09-02 09:41] VITALS: PULSE 124
--- NOTE | 2016-09-02 12:48 | CP.PCM.PN ---
Subjective - Date & Time of Evaluation Date of Evaluation: 09/02/16 Time of Evaluation: 11:00 - Subjective Subjective: Patient seen and examined bedside. Feeling better. Son and by bedside, very worried and concerned since HR ranging as high as 120 Patient denies any chest pain, SOB , palpitations. Objective - Vital Signs/Intake and Output Vital Signs (last 24 hours): Temp Pulse Resp BP Pulse Ox 97.7 F 93 H 18 173/89 H 96 09/02/16 09:00 09/02/16 09:00 09/02/16 09:00 09/02/16 09:00 09/02/16 09:00 - Medications Medications: Current Medications Acetaminophen (Tylenol 325mg Tab) 650 mg PO Q4 PRN PRN Reason: Pain, moderate (4-7) Last Admin: 08/31/16 20:28 Dose: 650 mg Aspirin (Ecotrin) 81 mg PO DAILY [facility] Last Admin: 09/02/16 08:39 Dose: 81 mg Atorvastatin Calcium (Lipitor) 10 mg PO DAILY [facility] Last Admin: 09/02/16 08:39 Dose: 10 mg Clonidine HCl (Catapres) 0.3 mg PO Q12 [facility] Last Admin: 09/02/16 08:38 Dose: 0.3 mg Diltiazem HCl (Cardizem Cd) 300 mg PO DAILY [facility] Last Admin: 09/02/16 08:39 Dose: 300 mg Enoxaparin Sodium (Lovenox) 40 mg SC DAILY [facility] PRN Reason: Protocol Last Admin: 09/02/16 08:39 Dose: 40 mg Famotidine (Pepcid) 20 mg PO BID [facility] Last Admin: 09/02/16 08:40 Dose: 20 mg Fenofibrate (Tricor) 145 mg PO DAILY [facility] Last Admin: 09/02/16 08:38 Dose: 145 mg Hydrochlorothiazide (Hydrodiuril) 25 mg PO DAILY [facility] Last Admin: 09/02/16 08:38 Dose: 25 mg Ceftriaxone Sodium 1 gm/ (Sodium Chloride) 100 mls @ 100 mls/hr IVPB DAILY [facility] Last Admin: 09/02/16 09:40 Dose: 100 mls/hr Metformin HCl (Glucophage) 500 mg PO TID [facility] Last Admin: 09/02/16 08:38 Dose: 500 mg Metoprolol Tartrate (Lopressor) 50 mg PO Q12 [facility] Last Admin: 09/02/16 08:47 Dose: Not Given Ondansetron HCl (Zofran Inj) 4 mg IVP Q4 PRN PRN Reason: Nausea/Vomiting Last Admin: 09/01/16 11:29 Dose: 4 mg Sitagliptin Phosphate (Januvia) 100 mg PO DAILY [facility] Last Admin: 09/02/16 08:39 Dose: 100 mg Tamsulosin HCl (Flomax) 0.4 mg PO DAILY [facility] Last Admin: 09/02/16 08:39 Dose: 0.4 mg - Labs Labs: 09/02/16 06:00 09/02/16 06:00 PT 14.9 Seconds (9.8-13.1) H 08/31/16 06:10 INR 1.3 (0.9-1.2) H 08/31/16 06:10 APTT 32.9 Seconds (25.6-37.1) 08/31/16 06:10 - Constitutional Appears: Non-toxic, No Acute Distress - Head Exam Head Exam: ATRAUMATIC, NORMAL INSPECTION, NORMOCEPHALIC - Eye Exam Eye Exam: EOMI, Normal appearance, PERRL Pupil Exam: NORMAL ACCOMODATION - ENT Exam ENT Exam: Mucous Membranes Moist, Normal Exam - Neck Exam Neck Exam: Full ROM, Normal Inspection - Respiratory Exam Respiratory Exam: Clear to Ausculation Bilateral, NORMAL BREATHING PATTERN. absent: Rales, Rhonchi, Wheezes - Cardiovascular Exam Cardiovascular Exam: Tachycardia, Irregular Rhythm. absent: JVD - GI/Abdominal Exam GI & Abdominal Exam: Distended, Soft, Normal Bowel Sounds. absent: Guarding, Rigid, Tenderness - Rectal Exam Rectal Exam: Deferred - Extremities Exam Extremities Exam: Normal Capillary Refill, Normal Inspection. absent: Pedal Edema - Back Exam Back Exam: NORMAL INSPECTION - Neurological Exam Neurological Exam: Alert, Awake, CN II-XII Intact, Oriented x3 - Psychiatric Exam Psychiatric exam: Normal Affect - Skin Skin Exam: Dry, Intact, Normal Color, Warm Assessment and Plan - Assessment and Plan (Free Text) Assessment: 75 y/o male with PMH AFIB , HTN, HLD, NIDDMII,hx perforated ulcer presents with moderate generalized nondescript nonradiating pain. Patient had a cysto ureteroscopy stone removal 4 days prior to admission. For the past day or so patient has had a loss of appetite, generalized pain, subjective fever, and chills. WBC 12.2. Afebrile. UA is Negative. No active disease on chest XR. Patient also presented with AFIB with RVR rate 130-150 in ER. He was started on Cardizem drip and empiric antibiotics .cardiology was consulted. Currently off cardizem drip , on Metoprolol, clonidine and cardizem PO . HR still not well controlled with HR 120 .1 dose of digoxin IV given. 1.Afib with RVR still nott well controlled 1 dose Digoxin 0.25 mg IV given Off cardizem drip Cardiology Dr. Pereira following Continue metoprolol, Cardizem Po family refusing anticoagulation. Continue ASA ( patient has no CHF history ) 2.s/p cysto ureteroscopy with stone removal empiric abx Ceftriaxone elevated WBC 12.2 on admission and today 10 afebrile subjective fever and chills UA neg, urine cx with no growth Will d/c in AM 3.Hypertension controlled Lopressor started this admission for better HR control D/C Losartan clonidine 0.3 BID, and 0.2 once a day 4.Hyperlipidemia, Hypertrig continue atorvastatin for home Simvastatin continue fenofibrate 5.DM continue Metformin, januvia pt also on Tradjenta at home on accuchecks,low dose ISS Heart healthy, mod carbohydrate diet 6.VTE ppx lovenox
--- NOTE | 2016-09-02 13:38 | CP.PCM.PN ---
Subjective - Date & Time of Evaluation Date of Evaluation: 09/02/16 Time of Evaluation: 10:30 - Subjective Subjective: NO CHEST PAIN, PALPITATIONS, SOB OR ABDOMINAL PAIN FEELS BETTER TODAY Objective - Vital Signs/Intake and Output Vital Signs (last 24 hours): Temp Pulse Resp BP Pulse Ox 98.5 F 81 20 139/82 95 09/02/16 13:00 09/02/16 13:00 09/02/16 13:00 09/02/16 13:00 09/02/16 13:00 - Medications Medications: Current Medications Acetaminophen (Tylenol 325mg Tab) 650 mg PO Q4 PRN PRN Reason: Pain, moderate (4-7) Last Admin: 08/31/16 20:28 Dose: 650 mg Aspirin (Ecotrin) 81 mg PO DAILY [facility] Last Admin: 09/02/16 08:39 Dose: 81 mg Atorvastatin Calcium (Lipitor) 10 mg PO DAILY [facility] Last Admin: 09/02/16 08:39 Dose: 10 mg Clonidine HCl (Catapres) 0.3 mg PO Q12 [facility] Last Admin: 09/02/16 08:38 Dose: 0.3 mg Diltiazem HCl (Cardizem Cd) 300 mg PO DAILY [facility] Last Admin: 09/02/16 08:39 Dose: 300 mg Enoxaparin Sodium (Lovenox) 40 mg SC DAILY [facility] PRN Reason: Protocol Last Admin: 09/02/16 08:39 Dose: 40 mg Famotidine (Pepcid) 20 mg PO BID [facility] Last Admin: 09/02/16 08:40 Dose: 20 mg Fenofibrate (Tricor) 145 mg PO DAILY [facility] Last Admin: 09/02/16 08:38 Dose: 145 mg Hydrochlorothiazide (Hydrodiuril) 25 mg PO DAILY [facility] Last Admin: 09/02/16 08:38 Dose: 25 mg Ceftriaxone Sodium 1 gm/ (Sodium Chloride) 100 mls @ 100 mls/hr IVPB DAILY [facility] Last Admin: 09/02/16 09:40 Dose: 100 mls/hr Metformin HCl (Glucophage) 500 mg PO TID [facility] Last Admin: 09/02/16 13:09 Dose: 500 mg Metoprolol Tartrate (Lopressor) 50 mg PO Q12 [facility] Last Admin: 09/02/16 08:47 Dose: Not Given Ondansetron HCl (Zofran Inj) 4 mg IVP Q4 PRN PRN Reason: Nausea/Vomiting Last Admin: 09/01/16 11:29 Dose: 4 mg Sitagliptin Phosphate (Januvia) 100 mg PO DAILY [facility] Last Admin: 09/02/16 08:39 Dose: 100 mg Tamsulosin HCl (Flomax) 0.4 mg PO DAILY [facility] Last Admin: 09/02/16 08:39 Dose: 0.4 mg - Labs Labs: 09/02/16 06:00 09/02/16 06:00 PT 14.9 Seconds (9.8-13.1) H 08/31/16 06:10 INR 1.3 (0.9-1.2) H 08/31/16 06:10 APTT 32.9 Seconds (25.6-37.1) 08/31/16 06:10 - Respiratory Exam Respiratory Exam: Clear to Ausculation Bilateral - Cardiovascular Exam Cardiovascular Exam: Irregular Rhythm, +S1, +S2 - GI/Abdominal Exam GI & Abdominal Exam: Soft, Normal Bowel Sounds - Additional Findings 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 WITH SLOWER HEART RATES NOW MOSTLY IN THE 80'S AND 90'S Assessment and Plan - Assessment and Plan (Free Text) Assessment: ATRIAL FIBRILLATION NOW WITH BTTER HEART RATE CONTROL ON METOPROLOL, DIATIAZEM AND CLONIDINE HYPERTENSION RENT REMOVAL OF LEFT URETERAL STONE Plan: CONTINUE METOPROLOL, DILTIAZEM, CLONIDINE, ASPIRIN, LOVENOX RECOMMEND OBSERVING PATIENT ONE MORE DAY ON 4N ON TELEMETRY AND IF STABLE THE PATIENT CAN BE DISCHARGED TOMORROW LONG DISCUSSION HELD WITH AND SON WHO GET VERY WORRIED AND ANXIOUS WHEN HIS HEART RATE GOES OVER 100 AND IT WAS EXPLAINED TO THEM THAT ATRIAL FIBRILLATION BY ITS VERY NATURE IS AN IRREGULAR HEART RHYTHM AND EVEN WHEN WELL CONTROLLED WILL HAVE AN OCCASIONAL RATE OVER 100 BPM AND THEY NOW UNDERSTAND BETTER AND FEEL BETTER
[2016-09-03 06:44] LABS: HEMATOCRIT 39.6 % (35.0-51.0); MEAN CORPUSCULAR HGB CONC 32.6 g/dL (33.0-37.0); RED CELL DISTRIBUTION WIDTH 15.2 % (11.5-14.5); WHITE BLOOD COUNT 9.9 K/uL (4.8-10.8)
[2016-09-03 06:49] LABS: BLOOD UREA NITROGEN 26 mg/dl (9-20); CALCIUM 8.3 mg/dL (8.4-10.2); CARBON DIOXIDE 30 mmol/L (22-30); CHLORIDE 101 mmol/L (98-107); GFR AFRICAN-AMERICAN > 60; GLUCOSE,RANDOM 129 mg/dL (75-110); POTASSIUM 4.1 MMOL/L (3.6-5.0); SODIUM 139 mmol/l (132-148)
[2016-09-03 07:18] LABS: THYROID STIMULATING HORMONE 5.31 mIU/ML (0.46-4.68)
[2016-09-03] MEDS: diltiaZEM 300 mg/24 Hours CD Cap PO SCH (08:08)
[2016-09-03] MEDS: Enoxaparin 40 mg Syringe SC SCH (08:10)
--- NOTE | 2016-09-03 08:51 | CP.PCM.PN ---
Subjective - Date & Time of Evaluation Date of Evaluation: 09/03/16 Time of Evaluation: 08:45 - Subjective Subjective: NO CHEST PAIN, SOB OR PALPITATIONS STATES HE FEELS TIRED Objective - Vital Signs/Intake and Output Vital Signs (last 24 hours): Temp Pulse Resp BP Pulse Ox 98.7 F 92 H 18 176/91 H 97 09/03/16 08:00 09/03/16 08:09 09/03/16 08:00 09/03/16 08:09 09/03/16 08:00 - Medications Medications: Current Medications Acetaminophen (Tylenol 325mg Tab) 650 mg PO Q4 PRN PRN Reason: Pain, moderate (4-7) Last Admin: 08/31/16 20:28 Dose: 650 mg Aspirin (Ecotrin) 81 mg PO DAILY [facility] Last Admin: 09/03/16 08:09 Dose: 81 mg Atorvastatin Calcium (Lipitor) 10 mg PO DAILY [facility] Last Admin: 09/03/16 08:09 Dose: 10 mg Clonidine HCl (Catapres) 0.3 mg PO Q12 [facility] Last Admin: 09/03/16 08:09 Dose: 0.3 mg Diltiazem HCl (Cardizem Cd) 300 mg PO DAILY [facility] Last Admin: 09/03/16 08:08 Dose: 300 mg Enoxaparin Sodium (Lovenox) 40 mg SC DAILY [facility] PRN Reason: Protocol Last Admin: 09/03/16 08:10 Dose: 40 mg Famotidine (Pepcid) 20 mg PO BID [facility] Last Admin: 09/03/16 08:09 Dose: 20 mg Fenofibrate (Tricor) 145 mg PO DAILY [facility] Last Admin: 09/03/16 08:09 Dose: 145 mg Hydrochlorothiazide (Hydrodiuril) 25 mg PO DAILY [facility] Last Admin: 09/03/16 08:08 Dose: 25 mg Ceftriaxone Sodium 1 gm/ (Sodium Chloride) 100 mls @ 100 mls/hr IVPB DAILY [facility] Last Admin: 09/03/16 08:08 Dose: 100 mls/hr Metformin HCl (Glucophage) 500 mg PO TID [facility] Last Admin: 09/03/16 08:09 Dose: 500 mg Metoprolol Tartrate (Lopressor) 50 mg PO Q12 [facility] Last Admin: 09/03/16 08:08 Dose: 50 mg Ondansetron HCl (Zofran Inj) 4 mg IVP Q4 PRN PRN Reason: Nausea/Vomiting Last Admin: 09/03/16 04:15 Dose: 4 mg Sitagliptin Phosphate (Januvia) 100 mg PO DAILY [facility] Last Admin: 09/03/16 08:09 Dose: 100 mg Tamsulosin HCl (Flomax) 0.4 mg PO DAILY [facility] Last Admin: 09/03/16 08:09 Dose: 0.4 mg - Labs Labs: 09/03/16 05:30 09/03/16 05:30 PT 14.9 Seconds (9.8-13.1) H 08/31/16 06:10 INR 1.3 (0.9-1.2) H 08/31/16 06:10 APTT 32.9 Seconds (25.6-37.1) 08/31/16 06:10 - Respiratory Exam Respiratory Exam: Clear to Ausculation Bilateral - Cardiovascular Exam Cardiovascular Exam: Tachycardia, Irregular Rhythm, +S1, +S2 - Additional Findings 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
--- NOTE | 2016-09-03 12:02 | CP.PCM.PN ---
Subjective - Date & Time of Evaluation Date of Evaluation: 09/03/16 Time of Evaluation: 10:00 - Subjective Subjective: No fever feels better however still not back to his baseline poor PO intake accdg to HR better controlled walked with PT no abd pain no hematuria nor dysuria no CP no SOB Objective - Vital Signs/Intake and Output Vital Signs (last 24 hours): Temp Pulse Resp BP Pulse Ox 98.7 F 92 H 18 176/91 H 97 09/03/16 08:00 09/03/16 10:01 09/03/16 08:00 09/03/16 10:01 09/03/16 08:00 - Medications Medications: Current Medications Acetaminophen (Tylenol 325mg Tab) 650 mg PO Q4 PRN PRN Reason: Pain, moderate (4-7) Last Admin: 08/31/16 20:28 Dose: 650 mg Aspirin (Ecotrin) 81 mg PO DAILY COUNTS [facility]CLUDE 234 BEDS AT [facility] Last Admin: 09/03/16 08:09 Dose: 81 mg Atorvastatin Calcium (Lipitor) 10 mg PO DAILY COUNTS INCLUDE 234 BEDS AT THE [facility] Last Admin: 09/03/16 08:09 Dose: 10 mg Clonidine HCl (Catapres) 0.3 mg PO Q8 COUNTS INCLUDE 234 BEDS AT THE [facility] Diltiazem HCl (Cardizem Cd) 300 mg PO DAILY COUNTS INCLUDE 234 BEDS AT THE [facility] Last Admin: 09/03/16 08:08 Dose: 300 mg Enoxaparin Sodium (Lovenox) 40 mg SC DAILY COUNTS INCLUDE 234 BEDS AT THE [facility] PRN Reason: Protocol Last Admin: 09/03/16 08:10 Dose: 40 mg Famotidine (Pepcid) 20 mg PO BID COUNTS INCLUDE 234 BEDS AT [facility] Last Admin: 09/03/16 08:09 Dose: 20 mg Fenofibrate (Tricor) 145 mg PO DAILY COUNTS INCLUDE 234 BEDS AT [facility] Last Admin: 09/03/16 08:09 Dose: 145 mg Hydrochlorothiazide (Hydrodiuril) 25 mg PO DAILY COUNTS INCLUDE 234 BEDS AT [facility] Last Admin: 09/03/16 08:08 Dose: 25 mg Ceftriaxone Sodium 1 gm/ (Sodium Chloride) 100 mls @ 100 mls/hr IVPB DAILY COUNTS INCLUDE 234 BEDS AT THE [facility] Last Admin: 09/03/16 08:08 Dose: 100 mls/hr Metformin HCl (Glucophage) 500 mg PO TID COUNTS INCLUDE 234 BEDS AT [facility] Last Admin: 09/03/16 08:09 Dose: 500 mg Metoprolol Tartrate (Lopressor) 100 mg PO Q12 COUNTS INCLUDE 234 BEDS AT THE [facility] Ondansetron HCl (Zofran Inj) 4 mg IVP Q4 PRN PRN Reason: Nausea/Vomiting Last Admin: 09/03/16 04:15 Dose: 4 mg Sitagliptin Phosphate (Januvia) 100 mg PO DAILY COUNTS INCLUDE 234 BEDS AT [facility] Last Admin: 09/03/16 08:09 Dose: 100 mg Tamsulosin HCl (Flomax) 0.4 mg PO DAILY COUNTS INCLUDE 234 BEDS AT THE [facility] Last Admin: 09/03/16 08:09 Dose: 0.4 mg - Labs Labs: 09/03/16 05:30 09/03/16 05:30 PT 14.9 Seconds (9.8-13.1) H 08/31/16 06:10 INR 1.3 (0.9-1.2) H 08/31/16 06:10 APTT 32.9 Seconds (25.6-37.1) 08/31/16 06:10 - Constitutional Appears: No Acute Distress - Head Exam Head Exam: NORMAL INSPECTION, NORMOCEPHALIC - Eye Exam Eye Exam: EOMI, Normal appearance Pupil Exam: NORMAL ACCOMODATION - ENT Exam ENT Exam: Mucous Membranes Moist, Normal External Ear Exam - Neck Exam Neck Exam: Full ROM, Normal Inspection. absent: Lymphadenopathy - Respiratory Exam Respiratory Exam: Rales (minimal rales bases), NORMAL BREATHING PATTERN. absent : Respiratory Distress - Cardiovascular Exam Cardiovascular Exam: Irregular Rhythm, +S1, +S2 - GI/Abdominal Exam GI & Abdominal Exam: Soft, Normal Bowel Sounds. absent: Tenderness - Extremities Exam Extremities Exam: Full ROM, Normal Capillary Refill. absent: Calf Tenderness, Pedal Edema - Back Exam Back Exam: Full ROM, NORMAL INSPECTION. absent: CVA tenderness (L), CVA tenderness (R) - Neurological Exam Neurological Exam: Alert, Awake, CN II-XII Intact, Oriented x3 Neuro motor strength exam: Left Upper Extremity: 5, Right Upper Extremity: 5, Left Lower Extremity: 5, Right Lower Extremity: 5 - Psychiatric Exam Psychiatric exam: Normal Affect, Normal Mood - Skin Skin Exam: Dry, Normal Color, Warm Assessment and Plan - Assessment and Plan (Free Text) Assessment: 75 y/o male with PMH AFIB , HTN, HLD, NIDDMII, hx perforated ulcer presents with moderate generalized nondescript nonradiating pain. Patient had a cysto ureteroscopy stone removal 4 days prior to admission. For the past day or so patient has had a loss of appetite, generalized pain, subjective fever, and chills. WBC 12.2. Afebrile. UA is Negative. No active disease on chest XR. Patient also presented with AFIB with RVR rate 130-150 in ER. He was started on Cardizem drip and empiric antibiotics. Cardilogy consulted. Currently off cardizem drip , on Metoprolol, clonidine and cardizem PO . HR now better controlled 1.Afib with RVR No CHF Off cardizem drip Cardiology Dr. Pereira following Continue metoprolol, Cardizem Po received a dose of 0.24 Digoxin yesterday family refusing anticoagulation. Continue ASA 2.s/p cysto ureteroscopy with stone removal empiric abx Ceftriaxone elevated WBC 12.2 on admission afebrile subjective fever and chills UA neg, urine cx with no growth 3.Hypertension controlled Lopressor started this admission for better HR control D/C Losartan cont cardizem clonidine 0.3 q8 4.Hyperlipidemia, Hypertrig continue atorvastatin for home Simvastatin continue fenofibrate 5.DM continue Metformin, januvia pt also on Tradjenta at home on accuchecks,low dose ISS Heart healthy, mod carbohydrate diet 6.VTE ppx lovenox Venus for d/c to TCU to cont IV abx and for PT
[2016-09-03] MEDS ORDERED: Enoxaparin 100 mg Syringe SC STA (18:51)
[2016-09-03] MEDS: Sucralfate 1 gm/10 ml Oral Susp UD PO SCH (19:09)
[2016-09-04] MEDS: Sucralfate 1 gm/10 ml Oral Susp UD PO SCH ×2 (09:13→16:34)
[2016-09-04] MEDS: diltiaZEM 300 mg/24 Hours CD Cap PO SCH (09:14)
[2016-09-04 09:18] LABS: HEMATOCRIT 40.8 % (35.0-51.0); MEAN CELL VOLUME 86.2 fl (80.0-94.0); MEAN CORPUSCULAR HEMOGLOBIN 28.1 pg (27.0-31.0); MEAN CORPUSCULAR HGB CONC 32.6 g/dL (33.0-37.0); RED CELL DISTRIBUTION WIDTH 15.3 % (11.5-14.5); WHITE BLOOD COUNT 9.9 K/uL (4.8-10.8)
--- NOTE | 2016-09-04 09:48 | CP.PCM.PN ---
Subjective - Date & Time of Evaluation Date of Evaluation: 09/04/16 Time of Evaluation: 09:00 - Subjective Subjective: THE PATIENT STATES THAT HE HAD ABOUT 2 HOURS OF CENTRAL CHEST PRESSURE LAST EVENING THAT HE CAN'T DESCRIBE AND HE STATES THAT HE EVENTUALLY BURPED AND THAT HE FELT BETTER AND NO CHEST PAIN SINCE. HE IS BREATHING WELL AND NO DIAPHORESIS. Objective - Vital Signs/Intake and Output Vital Signs (last 24 hours): Temp Pulse Resp BP Pulse Ox 99 F 89 18 161/92 H 97 09/04/16 08:00 09/04/16 09:15 09/04/16 08:00 09/04/16 09:15 09/04/16 08:00 - Medications Medications: Current Medications Acetaminophen (Tylenol 325mg Tab) 650 mg PO Q4 PRN PRN Reason: Pain, moderate (4-7) Last Admin: 08/31/16 20:28 Dose: 650 mg Aspirin (Ecotrin) 81 mg PO DAILY [facility] Last Admin: 09/04/16 09:16 Dose: 81 mg Atorvastatin Calcium (Lipitor) 10 mg PO DAILY [facility] Last Admin: 09/04/16 09:15 Dose: 10 mg Clonidine HCl (Catapres) 0.3 mg PO Q8 [facility] Last Admin: 09/04/16 09:14 Dose: 0.3 mg Clopidogrel Bisulfate (Plavix) 75 mg PO DAILY [facility] Last Admin: 09/04/16 09:15 Dose: 75 mg Diltiazem HCl (Cardizem Cd) 300 mg PO DAILY [facility] Last Admin: 09/04/16 09:14 Dose: 300 mg Enoxaparin Sodium (Lovenox) 100 mg SC Q12 [facility] PRN Reason: Protocol Famotidine (Pepcid) 20 mg PO BID [facility] Last Admin: 09/04/16 09:14 Dose: 20 mg Fenofibrate (Tricor) 145 mg PO DAILY [facility] Last Admin: 09/04/16 09:13 Dose: 145 mg Hydrochlorothiazide (Hydrodiuril) 25 mg PO DAILY [facility] Last Admin: 09/04/16 09:16 Dose: 25 mg Ceftriaxone Sodium 1 gm/ (Sodium Chloride) 100 mls @ 100 mls/hr IVPB DAILY [facility] Last Admin: 09/04/16 09:13 Dose: 100 mls/hr Lisinopril (Zestril) 10 mg PO DAILY [facility] Last Admin: 09/04/16 09:13 Dose: 10 mg Metformin HCl (Glucophage) 500 mg PO BID [facility] Last Admin: 09/04/16 09:15 Dose: 500 mg Metoprolol Tartrate (Lopressor) 100 mg PO Q12 [facility] Last Admin: 09/04/16 09:15 Dose: 100 mg Ondansetron HCl (Zofran Inj) 4 mg IVP Q4 PRN PRN Reason: Nausea/Vomiting Last Admin: 09/03/16 17:05 Dose: 4 mg Sitagliptin Phosphate (Januvia) 100 mg PO DAILY [facility] Last Admin: 09/04/16 09:15 Dose: 100 mg Sucralfate (Carafate Oral Susp) 1 gm PO BID [facility] Last Admin: 09/04/16 09:13 Dose: 1 gm Tamsulosin HCl (Flomax) 0.4 mg PO DAILY [facility] Last Admin: 09/04/16 09:15 Dose: 0.4 mg - Labs Labs: 09/04/16 09:14 09/03/16 05:30 PT 14.9 Seconds (9.8-13.1) H 08/31/16 06:10 INR 1.3 (0.9-1.2) H 08/31/16 06:10 APTT 32.9 Seconds (25.6-37.1) 08/31/16 06:10 - Respiratory Exam Respiratory Exam: Clear to Ausculation Bilateral - Cardiovascular Exam Cardiovascular Exam: Tachycardia, Irregular Rhythm, +S1, +S2 - Additional Findings Additional findings: EKGS ATRIAL FIBRILLATION WITH RVR BUT NO ACUTE CHANGES TROPONINS 0.17 ABN 0.57 Assessment and Plan - Assessment and Plan (Free Text) Assessment: CHRONIC ATRIAL FIBRILLATION CHEST PRESSURE LAST NIGHT AND ELEVATED TROPONINS HYPERTENSION Plan: THE PATIENT IS ON ASPIRIN, CLOPIDOGREL ABD THERAPEUTIC LOVENOX WELL CLONIDINE, METOPROLOL, AND DILTIZEM I RECOMMENDED A CARDIAC CATHETERIZATION IN LIGHT OF THE CHEST PAIN AND ELEVATED TROPONINS AND THE FAMILY AGREES-DR RAMOS WAS CALLED AND HE WILL ARRANGE FOR IT TO BE DONE TODAY AT [facility]
--- NOTE | 2016-09-04 10:32 | CP.PCM.PN ---
Subjective - Date & Time of Evaluation Date of Evaluation: 09/04/16 Time of Evaluation: 10:30 - Subjective Subjective: Pt complained of feeling epigastric discomfort- described as feeling like there was a "knot" last night EKG done - no change Troponin sl elevated at present pt feels better no fever no N/V has sl cough Plan for Cardiac cath this afternoon Objective - Vital Signs/Intake and Output Vital Signs (last 24 hours): Temp Pulse Resp BP Pulse Ox 99 F 89 18 161/92 H 97 09/04/16 08:00 09/04/16 09:15 09/04/16 08:00 09/04/16 09:15 09/04/16 08:00 - Medications Medications: Current Medications Acetaminophen (Tylenol 325mg Tab) 650 mg PO Q4 PRN PRN Reason: Pain, moderate (4-7) Last Admin: 08/31/16 20:28 Dose: 650 mg Aspirin (Ecotrin) 81 mg PO DAILY [facility] Last Admin: 09/04/16 09:16 Dose: 81 mg Atorvastatin Calcium (Lipitor) 10 mg PO DAILY [facility] Last Admin: 09/04/16 09:15 Dose: 10 mg Clonidine HCl (Catapres) 0.3 mg PO Q8 [facility] Last Admin: 09/04/16 09:14 Dose: 0.3 mg Clopidogrel Bisulfate (Plavix) 75 mg PO DAILY [facility] Last Admin: 09/04/16 09:15 Dose: 75 mg Diltiazem HCl (Cardizem Cd) 300 mg PO DAILY [facility] Last Admin: 09/04/16 09:14 Dose: 300 mg Enoxaparin Sodium (Lovenox) 100 mg SC Q12 [facility] PRN Reason: Protocol Famotidine (Pepcid) 20 mg PO BID [facility] Last Admin: 09/04/16 09:14 Dose: 20 mg Fenofibrate (Tricor) 145 mg PO DAILY [facility] Last Admin: 09/04/16 09:13 Dose: 145 mg Hydrochlorothiazide (Hydrodiuril) 25 mg PO DAILY [facility] Last Admin: 09/04/16 09:16 Dose: 25 mg Ceftriaxone Sodium 1 gm/ (Sodium Chloride) 100 mls @ 100 mls/hr IVPB DAILY [facility] Last Admin: 09/04/16 09:13 Dose: 100 mls/hr Lisinopril (Zestril) 10 mg PO DAILY [facility] Last Admin: 09/04/16 09:13 Dose: 10 mg Metformin HCl (Glucophage) 500 mg PO BID [facility] Last Admin: 09/04/16 09:15 Dose: 500 mg Metoprolol Tartrate (Lopressor) 100 mg PO Q12 [facility] Last Admin: 09/04/16 09:15 Dose: 100 mg Ondansetron HCl (Zofran Inj) 4 mg IVP Q4 PRN PRN Reason: Nausea/Vomiting Last Admin: 09/03/16 17:05 Dose: 4 mg Sitagliptin Phosphate (Januvia) 100 mg PO DAILY [facility] Last Admin: 09/04/16 09:15 Dose: 100 mg Sucralfate (Carafate Oral Susp) 1 gm PO BID [facility] Last Admin: 09/04/16 09:13 Dose: 1 gm Tamsulosin HCl (Flomax) 0.4 mg PO DAILY [facility] Last Admin: 09/04/16 09:15 Dose: 0.4 mg - Labs Labs: 09/04/16 09:14 09/03/16 05:30 PT 14.9 Seconds (9.8-13.1) H 08/31/16 06:10 INR 1.3 (0.9-1.2) H 08/31/16 06:10 APTT 32.9 Seconds (25.6-37.1) 08/31/16 06:10 - Constitutional Appears: No Acute Distress - Head Exam Head Exam: NORMAL INSPECTION, NORMOCEPHALIC - Eye Exam Eye Exam: EOMI, Normal appearance Pupil Exam: NORMAL ACCOMODATION - ENT Exam ENT Exam: Mucous Membranes Moist, Normal External Ear Exam - Neck Exam Neck Exam: Full ROM, Normal Inspection. absent: Lymphadenopathy - Respiratory Exam Respiratory Exam: Rales (minimal rales bases), NORMAL BREATHING PATTERN. absent : Respiratory Distress - Cardiovascular Exam Cardiovascular Exam: Irregular Rhythm, +S1, +S2 - GI/Abdominal Exam GI & Abdominal Exam: Soft, Normal Bowel Sounds. absent: Tenderness - Extremities Exam Extremities Exam: Full ROM, Normal Capillary Refill. absent: Calf Tenderness, Pedal Edema - Back Exam Back Exam: Full ROM, NORMAL INSPECTION. absent: CVA tenderness (L), CVA tenderness (R) - Neurological Exam Neurological Exam: Alert, Awake, CN II-XII Intact, Oriented x3 Neuro motor strength exam: Left Upper Extremity: 5, Right Upper Extremity: 5, Left Lower Extremity: 5, Right Lower Extremity: 5 - Psychiatric Exam Psychiatric exam: Normal Affect, Normal Mood - Skin Skin Exam: Dry, Normal Color, Warm Assessment and Plan - Assessment and Plan (Free Text) Assessment: 75 y/o male with PMH AFIB , HTN, HLD, NIDDMII, hx perforated ulcer presents with moderate generalized nondescript nonradiating pain. Patient had a cysto ureteroscopy stone removal 4 days prior to admission. For the past day or so patient has had a loss of appetite, generalized pain, subjective fever, and chills. WBC 12.2. Afebrile. UA is Negative. No active disease on chest XR. Patient also presented with AFIB with RVR rate 130-150 in ER. He was started on Cardizem drip and empiric antibiotics. Cardilogy consulted. Currently off cardizem drip , on Metoprolol, clonidine and cardizem PO . HR now better controlled 1.Afib with RVR No CHF Off cardizem drip Cardiology Dr. Pereira following Continue metoprolol, Cardizem Po family refusing anticoagulation at home . Continue ASA 2. Chest Pain with Troponin Elevation Pt complained of chest tightness EKG done no change - A Fib, rate controlled Troponin sl elevated to 0.5 cont ASA, Plavix cont therapeutic dose of Lovenox cont metoprolol, Lisinopril and statin Dr Bird consulted - plan for Crdiac cath today keep pt NPO 3 s/p cysto ureteroscopy with stone removal empiric abx Ceftriaxone elevated WBC 12.2 on admission afebrile subjective fever and chills UA neg, urine cx with no growth 4.Hypertension controlled Lopressor started this admission for better HR control cont cardizem, clonidine 0.3 q8 and Lisinopril 5.Hyperlipidemia, Hypertrig continue atorvastatin for home Simvastatin continue fenofibrate 6..DM type ii controlled continue januvia d/c Metformin as pt is sched for Cardiac cath pt also on Tradjenta at home on accuchecks,low dose ISS Heart healthy, mod carbohydrate diet
[2016-09-04] MEDS: Enoxaparin 100 mg Syringe SC SCH ×2 (11:06→22:07)
--- NOTE | 2016-09-04 12:04 | CARD ---
APPROVED REPORT EKG Measurement Heart [id number] <Conclusion> Atrial fibrillation with rapid ventricular response Abnormal ECG
--- NOTE | 2016-09-04 12:05 | CARD ---
APPROVED REPORT EKG Measurement Heart [id number] <Conclusion> Atrial fibrillation with rapid ventricular response Abnormal ECG
[2016-09-04 12:40] LABS: BLOOD UREA NITROGEN 21 mg/dl (9-20); CALCIUM 8.7 mg/dL (8.4-10.2); CARBON DIOXIDE 30 mmol/L (22-30); CHLORIDE 99 mmol/L (98-107); GFR AFRICAN-AMERICAN > 60; GLUCOSE,RANDOM 151 mg/dL (75-110); POTASSIUM 4.1 MMOL/L (3.6-5.0); SODIUM 138 mmol/l (132-148)
[2016-09-05 04:44] LABS: MEAN CELL VOLUME 85.6 fl (80.0-94.0); MEAN CORPUSCULAR HEMOGLOBIN 27.7 pg (27.0-31.0); MEAN CORPUSCULAR HGB CONC 32.3 g/dL (33.0-37.0); RED CELL DISTRIBUTION WIDTH 15.6 % (11.5-14.5); WHITE BLOOD COUNT 11.2 K/uL (4.8-10.8)
[2016-09-05 05:02] LABS: BLOOD UREA NITROGEN 27 mg/dl (9-20); CALCIUM 8.7 mg/dL (8.4-10.2); CARBON DIOXIDE 30 mmol/L (22-30); CHLORIDE 101 mmol/L (98-107); GFR AFRICAN-AMERICAN > 60; GLUCOSE,RANDOM 154 mg/dL (75-110); POTASSIUM 3.8 MMOL/L (3.6-5.0); SODIUM 141 mmol/l (132-148)
[2016-09-05 07:54] VITALS: RESP 18
[2016-09-05] MEDS: Sucralfate 1 gm/10 ml Oral Susp UD PO SCH (09:00)
[2016-09-05] MEDS: diltiaZEM 300 mg/24 Hours CD Cap PO SCH (09:01)
[2016-09-05] MEDS: Enoxaparin 100 mg Syringe SC SCH (09:04)
--- NOTE | 2016-09-05 09:37 | CP.PCM.DIS ---
Provider - Provider Date of Admission: 09/01/16 15:42 Attending physician: Tran Gibson DO Primary care physician: García Moura MD Time Spent in preparation of Discharge (in minutes): 30 Diagnosis - Discharge Diagnosis (1) Atrial fibrillation with rapid ventricular response Status: Acute (2) DM type 2 (diabetes mellitus, type 2) Status: Chronic (3) HLD (hyperlipidemia) Status: Chronic (4) HTN (hypertension) Status: Chronic Hospital Course - Lab Results Lab Results: Most Recent Lab Values WBC 11.2 K/uL (4.8-10.8) H 09/05/16 04:15 RBC 4.44 Mil/uL (4.40-5.90) 09/05/16 04:15 Hgb 12.3 g/dL (12.0-18.0) 09/05/16 04:15 Hct 38.0 % (35.0-51.0) 09/05/16 04:15 MCV 85.6 fl (80.0-94.0) 09/05/16 04:15 MCH 27.7 pg (27.0-31.0) 09/05/16 04:15 MCHC 32.3 g/dL (33.0-37.0) L 09/05/16 04:15 RDW 15.6 % (11.5-14.5) H 09/05/16 04:15 Plt Count 344 K/uL (130-400) 09/05/16 04:15 MPV 8.7 fl (7.2-11.7) 09/02/16 06:00 Neut % (Auto) 76.6 % (50.0-75.0) H 09/02/16 06:00 Lymph % (Auto) 10.1 % (20.0-40.0) L 09/02/16 06:00 [place] % (Auto) 10.8 % (0.0-10.0) H 09/02/16 06:00 Eos % (Auto) 2.1 % (0.0-4.0) 09/02/16 06:00 Baso % (Auto) 0.4 % (0.0-2.0) 09/02/16 06:00 Neut # 7.7 K/uL (1.8-7.0) H 09/02/16 06:00 Lymph # 1.0 K/uL (1.0-4.3) 09/02/16 06:00 [place] # 1.1 K/uL (0.0-0.8) H 09/02/16 06:00 Eos # 0.2 K/uL (0.0-0.7) 09/02/16 06:00 Baso # 0.0 K/uL (0.0-0.2) 09/02/16 06:00 Neutrophils % (Manual) 83 % (42-75) H 09/01/16 06:00 Band Neutrophils % 3 % (0-2) H 09/01/16 06:00 Lymphocytes % (Manual) 3 % (20-50) L 09/01/16 06:00 Monocytes % (Manual) 11 % (0-10) H 09/01/16 06:00 Platelet Estimate Normal (NORMAL) 09/01/16 06:00 Plt Clumps, EDTA Present 09/01/16 06:00 Anisocytosis (manual) Slight 09/01/16 06:00 Ovalocytes Slight 09/01/16 06:00 PT 14.9 Seconds (9.8-13.1) H 08/31/16 06:10 INR 1.3 (0.9-1.2) H 08/31/16 06:10 APTT 32.9 Seconds (25.6-37.1) 08/31/16 06:10 pO2 36 mm/Hg (30-55) 08/31/16 11:00 VBG pH 7.39 (7.32-7.43) 08/31/16 11:00 VBG pCO2 44 mmHg (40-60) 08/31/16 11:00 VBG HCO3 25.2 mmol/L 08/31/16 11:00 VBG Total CO2 28.0 mmol/L (22-28) 08/31/16 11:00 VBG O2 Sat (Calc) 78.8 % (40-65) H 08/31/16 11:00 VBG Base Excess 1.2 mmol/L (0.0-2.0) 08/31/16 11:00 VBG Potassium 6.1 mmol/L (3.6-5.2) H 08/31/16 11:00 A-a O2 Difference 59.0 mm/Hg 08/31/16 11:00 Sodium 133.0 mmol/L (132-148) 08/31/16 11:00 Chloride 100.0 mmol/L (98-107) 08/31/16 11:00 Glucose 160 mg/dL (75-110) H 08/31/16 11:00 Lactate 1.5 mmol/L (0.7-2.1) 08/31/16 11:00 FiO2 21.0 % 08/31/16 11:00 Crit Value Called To Dr efrain garduno 08/31/16 11:00 Crit Value Called By 15 08/31/16 11:00 Crit Value Read Back Y 08/31/16 11:00 Blood Gas Notified Time 1200 08/31/16 11:00 Sodium 141 mmol/l (132-148) 09/05/16 04:15 Potassium 3.8 MMOL/L (3.6-5.0) 09/05/16 04:15 Chloride 101 mmol/L (98-107) 09/05/16 04:15 Carbon Dioxide 30 mmol/L (22-30) 09/05/16 04:15 Anion Gap 14 (10-20) 09/05/16 04:15 BUN 27 mg/dl (9-20) H 09/05/16 04:15 Creatinine 0.8 mg/dL (0.8-1.5) 09/05/16 04:15 Est GFR ( Amer) > 60 09/05/16 04:15 Est GFR (Non-Af Amer) > 60 09/05/16 04:15 POC Glucose (mg/dL) 144 mg/dL (65-110) H 09/05/16 05:44 Random Glucose 154 mg/dL (75-110) H 09/05/16 04:15 Calcium 8.7 mg/dL (8.4-10.2) 09/05/16 04:15 Magnesium 2.5 MG/DL (1.6-2.3) H 09/02/16 06:00 Troponin I 0.2870 ng/mL (0.00-0.120) H* 09/05/16 04:15 Triglycerides 150 mg/DL (0-149) H 09/01/16 06:00 Cholesterol 87 mg/dL (0-199) 09/01/16 06:00 LDL Cholesterol Direct 39 mg/dL (0-129) 09/01/16 06:00 HDL Cholesterol 19 MG/DL (30-70) L 09/01/16 06:00 Lipase 53 U/L (23-300) 09/01/16 09:36 TSH 3rd Generation 5.31 mIU/ML (0.46-4.68) H 09/03/16 05:30 Venous Blood Potassium 6.1 mmol/L (3.6-5.2) H 08/31/16 11:00 Urine Color Yellow (YELLOW) 08/31/16 11:40 Urine Clarity Clear (Clear) 08/31/16 11:40 Urine pH 6.0 (5.0-8.0) 08/31/16 11:40 Ur Specific [place] 1.038 (1.003-1.030) H 08/31/16 11:40 Urine Protein 100 mg/dL (NEGATIVE) 08/31/16 11:40 Urine Glucose (UA) >=500 mg/dL (Normal) 08/31/16 11:40 Urine Ketones 20 mg/dL (NEGATIVE) 08/31/16 11:40 Urine Blood Moderate (NEGATIVE) 08/31/16 11:40 Urine Nitrate Negative (NEGATIVE) 08/31/16 11:40 Urine Bilirubin Negative (NEGATIVE) 08/31/16 11:40 Urine Urobilinogen 0.2-1.0 mg/dL (0.2-1.0) 08/31/16 11:40 Ur Leukocyte Esterase Neg [place]/uL (Negative) 08/31/16 11:40 Urine RBC (Auto) 74 /hpf (0-3) H 08/31/16 11:40 Urine Microscopic WBC 4 /hpf (0-5) 08/31/16 11:40 Ur Squamous Epith Cells < 1 /hpf (0-5) 08/31/16 11:40 - Hospital Course Hospital Course: 75 y/o male with PMH AFIB , HTN, HLD, NIDDMII, hx perforated ulcer presents with moderate generalized nondescript nonradiating pain. Patient had a cysto ureteroscopy stone removal 4 days prior to admission. For the past day or so patient has had a loss of appetite, generalized pain, subjective fever, and chills. WBC 12.2. Afebrile. UA is Negative. No active disease on chest XR. Patient also presented with AFIB with RVR rate 130-150 in ER. He was started on Cardizem drip and empiric antibiotics. Cardilogy consulted. Currently off cardizem drip , on Metoprolol, clonidine and cardizem PO . HR now better controlled Patient had cardiac cath yesterday wtih Dr. Bird. No angiographic evidence of CAD. Transfer to TCU for further rehab needs. 1.Afib with RVR No CHF Off cardizem drip Cardiology Dr. ePreira following Continue metoprolol, Cardizem Po family refusing anticoagulation at home . Continue ASA 2. Chest Pain with Troponin Elevation Pt complained of chest tightness EKG done no change - A Fib, rate controlled Troponin sl elevated to 0.5 cont ASA, Plavix cont therapeutic dose of Lovenox cont metoprolol, Lisinopril and statin Dr Bird consulted - plan for Crdiac cath today keep pt NPO 3 s/p cysto ureteroscopy with stone removal empiric abx Ceftriaxone elevated WBC 12.2 on admission afebrile subjective fever and chills UA neg, urine cx with no growth 4.Hypertension controlled Lopressor started this admission for better HR control cont cardizem, clonidine 0.3 q8 and Lisinopril 5.Hyperlipidemia, Hypertrig continue atorvastatin for home Simvastatin continue fenofibrate 6..DM type ii controlled continue januvia d/c Metformin as pt is sched for Cardiac cath pt also on Tradjenta at home on accuchecks,low dose ISS Heart healthy, mod carbohydrate diet Discharge Exam - Head Exam Head Exam: NORMAL INSPECTION, NORMOCEPHALIC Discharge Plan - Follow Up Plan Condition: STABLE Disposition: TRANSF TO SNF Instructions: Heart Failure (DC), Heart Failure (GEN), Pacemaker (DC), Pacemaker (GEN), Pulmonary Edema (DC), Pulmonary Edema (GEN), Ascites (DC), Ascites (GEN), Hypertension (DC), Hypertension (GEN) Referrals: García Moura MD [Primary Care Provider] -
[2016-09-05 12:04] VITALS: BP 156/81; PULSE 75; TEMP 97.6; O2SAT 97
--- NOTE | 2016-09-05 12:19 | CP.PCM.PN ---
Subjective - Date & Time of Evaluation Date of Evaluation: 09/05/16 Time of Evaluation: 09:15 - Subjective Subjective: NO CHEST PAIN OR SOB Objective - Vital Signs/Intake and Output Vital Signs (last 24 hours): Temp Pulse Resp BP Pulse Ox 97.6 F 75 18 156/81 H 97 09/05/16 12:03 09/05/16 12:03 09/05/16 12:03 09/05/16 12:03 09/05/16 12:03 - Medications Medications: Current Medications Acetaminophen (Tylenol 325mg Tab) 650 mg PO Q4 PRN PRN Reason: Pain, moderate (4-7) Last Admin: 09/05/16 04:51 Dose: 650 mg Aspirin (Ecotrin) 81 mg PO DAILY [facility] Last Admin: 09/05/16 09:02 Dose: 81 mg Atorvastatin Calcium (Lipitor) 10 mg PO DAILY [facility] Last Admin: 09/05/16 09:03 Dose: 10 mg Clonidine HCl (Catapres) 0.3 mg PO Q8 [facility] Last Admin: 09/05/16 09:02 Dose: 0.3 mg Clopidogrel Bisulfate (Plavix) 75 mg PO DAILY [facility] Last Admin: 09/05/16 09:05 Dose: 75 mg Diltiazem HCl (Cardizem Cd) 300 mg PO DAILY [facility] Last Admin: 09/05/16 09:01 Dose: 300 mg Enoxaparin Sodium (Lovenox) 100 mg SC Q12 [facility] PRN Reason: Protocol Last Admin: 09/05/16 09:04 Dose: 100 mg Famotidine (Pepcid) 20 mg PO BID [facility] Last Admin: 09/05/16 09:04 Dose: 20 mg Fenofibrate (Tricor) 145 mg PO DAILY [facility] Last Admin: 09/05/16 09:05 Dose: 145 mg Hydrochlorothiazide (Hydrodiuril) 25 mg PO DAILY [facility] Last Admin: 09/05/16 09:03 Dose: 25 mg Ceftriaxone Sodium 1 gm/ (Sodium Chloride) 100 mls @ 100 mls/hr IVPB DAILY [facility] Last Admin: 09/04/16 09:13 Dose: 100 mls/hr Lisinopril (Zestril) 10 mg PO DAILY [facility] Last Admin: 09/05/16 09:05 Dose: 10 mg Metoprolol Tartrate (Lopressor) 100 mg PO Q12 [facility] Last Admin: 09/05/16 09:04 Dose: 100 mg Ondansetron HCl (Zofran Inj) 4 mg IVP Q4 PRN PRN Reason: Nausea/Vomiting Last Admin: 09/03/16 17:05 Dose: 4 mg Sitagliptin Phosphate (Januvia) 100 mg PO DAILY [facility] Last Admin: 09/05/16 09:03 Dose: 100 mg Sucralfate (Carafate Oral Susp) 1 gm PO BID [facility] Last Admin: 09/04/16 16:34 Dose: Not Given Tamsulosin HCl (Flomax) 0.4 mg PO DAILY [facility] Last Admin: 09/05/16 09:03 Dose: 0.4 mg - Labs Labs: 09/05/16 04:15 09/05/16 04:15 PT 14.9 Seconds (9.8-13.1) H 08/31/16 06:10 INR 1.3 (0.9-1.2) H 08/31/16 06:10 APTT 32.9 Seconds (25.6-37.1) 08/31/16 06:10 - Respiratory Exam Respiratory Exam: Clear to Ausculation Bilateral - Cardiovascular Exam Cardiovascular Exam: Irregular Rhythm, +S1, +S2 - Additional Findings 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
[2016-09-06] MEDS ORDERED: Enoxaparin 40 mg Syringe SC SCH (09:00)
== END 2016-09-05 13:30 | DRG 287 ==
LOC: H.ER 04:58 → H.EROBSV 11:43 → H.ERHOLD 12:22 → H.TEL 13:51 → OBSVTOIN 09-01 15:42
PROVIDERS: ADMIT Student in an Organized Health Care Education/Training Program; ATTEND Student in an Organized Health Care Education/Training Program
PROC: 4A023N8 Measurement of Cardiac Sampling and Pressure, Bilateral, Percutaneous Approach (ICD-10-PCS; principal; 2016-09-04)
PROC: B2061ZZ Plain Radiography of Right and Left Heart using Low Osmolar Contrast (ICD-10-PCS; 2016-09-04)
DX: I48.2 Chronic atrial fibrillation (principal); E11.9 Type 2 diabetes mellitus without complications; E78.5 Hyperlipidemia, unspecified; K29.70 Gastritis, unspecified, without bleeding; E78.00 Pure hypercholesterolemia, unspecified; K59.00 Constipation, unspecified; N40.0 Benign prostatic hyperplasia without lower urinary tract symptoms; Z87.11 Personal history of peptic ulcer disease; Z87.442 Personal history of urinary calculi; Z87.891 Personal history of nicotine dependence; Z79.84 Long term (current) use of oral hypoglycemic drugs; R00.0 Tachycardia, unspecified; R74.8 Abnormal levels of other serum enzymes

== ENCOUNTER 2016-09-04 15:48 | Inpatient (IN) | payer OTHER, BC ==
[2016-09-05 14:09] VITALS: BMI 33.9
[2016-09-05] MEDS: Sucralfate 1 gm/10 ml Oral Susp UD PO SCH (18:11)
[2016-09-06] MEDS: diltiaZEM 300 mg/24 Hours CD Cap PO SCH (08:57)
[2016-09-06] MEDS: Sucralfate 1 gm/10 ml Oral Susp UD PO SCH ×2 (08:57→17:54)
[2016-09-06] MEDS ORDERED: Enoxaparin 40 mg Syringe SC SCH (09:00)
--- NOTE | 2016-09-06 10:15 | CP.PCM.HP ---
History of Present Illness - History of Present Illness History of Present Illness: CC s/p admission for chest pain, afib RVR HPI: 75M PMH AFIB RVR, HTN, HLD, NIDDMII, CHF, hx perforated ulcer discharged from [facility] initially presented to the ER with moderate generalized nondescript nonradiating pain. Patient had a cysto ureteroscopy stone basket 4 days prior to admission. For the past day or so patient has had a loss of appetite, generalized pain, subjective fever, and chills. WBC 12.2. Afebrile. UA is Negative. No active disease on chest XR. Patient also presents with AFIB RVR rate 130-150 in ER. Patient on Cardizem drip. Patient was started on empiric antibiotics. ER EKG tachycardia, AFIB RVR. rate 189. Per , does not wish to have any anticoagulation. During admission patient developed chest pain, had elevated troponins, underwent cardiac cath NEG. Now admitted to TCU for further rehab. ROS: per HPI, 12 systems reviewed and negative by ne PMD: Dr. Moura Servicenow Administrator: Dr. Pereira PMSH: AFIB RVR, HTN, NIDDMII, CHF, hx perforated ulcer, arthroscopy FH: denies SH: Denies tobacco, ETOH, IVDU MEDS: as below and reviewed ALLERGIES: NKDA EXAM: Vitals stable and reviewed GEN: WDWN, alert, cooperative HEENT: NCAT, PERRL, EOMI Neck: supple, no lymphadenopathy CARDIO: +S1S2, tachy, irreg irreg LUNG: CTAB, NO W/R/R ABD: midline scar. soft, NT, ND, no masses, no HSM EXT: +1 edema B/L LE, pedal pulses equal, regular Neuro: AAOx3, Strength equal, bilateral UE/LE Psych: normal mood, normal affect Labs reviewed from prior admission Active Medications 09/05/16 09:00 hydroCHLOROthiazide [Hydrodiuril] 25 mg PO DAILY 09/05/16 15:22 Acetaminophen [Tylenol 325mg tab] 650 mg PO Q4 PRN Ondansetron [Zofran Inj] 4 mg IVP Q4 PRN traMADol [Ultram] 50 mg PO TID PRN 09/05/16 17:00 Sucralfate [Carafate Oral Susp] 1 gm PO BID cloNIDine [Catapres] 0.3 mg PO Q8 metFORMIN [glucOPHAGE] 500 mg PO BIDWM 09/05/16 21:00 Metoprolol Tartrate [Lopressor] 100 mg PO Q12 09/06/16 09:00 Aspirin [Ecotrin] 81 mg PO DAILY Atorvastatin [Lipitor] 10 mg PO DAILY Clopidogrel [Plavix] 75 mg PO DAILY Enoxaparin [Lovenox] 40 mg SC DAILY Fenofibrate [Tricor] 145 mg PO DAILY Lisinopril [Zestril] 10 mg PO DAILY SITagliptin [Januvia] 100 mg PO DAILY Tamsulosin [Flomax] 0.4 mg PO DAILY diltiaZEM CD [Cardizem CD] 300 mg PO DAILY 5M PMH AFIB RVR, HTN, HLD, NIDDMII, CHF, hx perforated ulcer discharged from [facility] initially presented to the ER with moderate generalized nondescript nonradiating pain. Patient had a cysto ureteroscopy stone basket 4 days prior to admission. For the past day or so patient has had a loss of appetite, generalized pain, subjective fever, and chills. WBC 12.2. Afebrile. UA is Negative. No active disease on chest XR. Patient also presents with AFIB RVR rate 130-150 in ER. Patient on Cardizem drip. Patient was started on empiric antibiotics. ER EKG tachycardia, AFIB RVR. rate 189. Per , does not wish to have any anticoagulation. Cardiology was consulted. Patient was on Cardizem drip , converted to PO, started Metoprolol, continues Clonidine as well. HR now controlled. During admission patient developed chest pain, had elevated troponins, underwent cardiac cath with Dr. Bird, no angiographic evidence of CAD. Now admitted to TCU for further rehab. 1.Afib with RVR No CHF, rate controlled Off cardizem drip, on PO cardizem Cardiology Dr. Pereira following Continue metoprolol, Cardizem Po family refusing anticoagulation at home . Continue ASA 2. Chest Pain with Troponin Elevation Pt complained of chest tightness EKG done no change - A Fib, rate controlled Troponin sl elevated to 0.5 cont ASA, Plavix cont therapeutic dose of Lovenox cont metoprolol, Lisinopril and statin Dr Bird consulted - underwent cardiac cath with Dr. Bird, no angiographic evidence of CAD keep pt NPO 3 s/p cysto ureteroscopy with stone removal empiric abx Ceftriaxone elevated WBC 12.2 on admission afebrile subjective fever and chills UA neg, urine cx with no growth 4.Hypertension controlled Lopressor started this admission for better HR control cont cardizem, clonidine 0.3 q8 and Lisinopril 5.Hyperlipidemia, Hypertrig continue atorvastatin for home Simvastatin continue fenofibrate 6..DM type II controlled continue januvia d/c Metformin as pt is sched for Cardiac cath pt also on Tradjenta at home on accuchecks,low dose ISS Heart healthy, mod carbohydrate diet Present on Admission - Present on Admission Any Indicators Present on Admission: No Past Patient History - Infectious Disease Hx of Infectious Diseases: None - Tetanus Immunizations Tetanus Immunization: Unknown - Past Medical History & Family History Past Medical History?: Yes - Past Social History Smoking Status: Former Smoker - CARDIAC Hx Cardiac Disorders: Yes (afib, CHF, huigh cholesterol, HTN) Hx Atrial Fibrillation: Yes (with RVR) Hx Congestive Heart Failure: Yes Hx Hypertension: Yes Other/Comment: s/p cardiac cath 09/03/16 - PULMONARY Hx Respiratory Disorders: Yes (pneumonia) - NEUROLOGICAL Hx Neurological Disorder: No - HEENT Hx HEENT Problems: No Other/Comment: [place] both ears - RENAL Hx Chronic Kidney Disease: No Hx Kidney Stones: Yes (s/p stone removal) - ENDOCRINE/METABOLIC Hx Endocrine Disorders: Yes (DM) Hx Diabetes Mellitus Type 2: Yes - HEMATOLOGICAL/ONCOLOGICAL Hx AIDS: No Hx Human Immunodeficiency Virus (HIV): No - INTEGUMENTARY Hx Dermatological Problems: No - MUSCULOSKELETAL/RHEUMATOLOGICAL Hx Musculoskeletal Disorders: No Hx Falls: No - GASTROINTESTINAL Hx Gastritis: Yes Other/Comment: GERD - GENITOURINARY/GYNECOLOGICAL Hx Genitourinary Disorders: No Hx Urinary Tract Infection: No - PSYCHIATRIC Hx Psychophysiologic Disorder: No Hx Substance Use: No - SURGICAL HISTORY Hx Surgeries: Yes Hx Arthroscopy: Yes Hx Cardiac Catheterization: Yes (09/03/16) Other/Comment: Perforated Ulcer with Sx 1990. s/p cysto uretoroscopy stone removal 09/03/16 - ANESTHESIA Hx Anesthesia: Yes Hx Anesthesia Reactions: No Hx Malignant Hyperthermia: No Meds Allergies/Adverse Reactions: Allergies Allergy/AdvReac Type Severity Reaction Status Date / Time dabigatran etexilate Allergy hot flashes Verified 09/05/16 14:09 [From Pradaxa] Results - Vital Signs Recent Vital Signs: Last Vital Signs Temp 98.2 F 09/06/16 08:54 Pulse 70 09/06/16 08:58 Resp 20 09/06/16 08:54 BP 139/80 09/06/16 08:58 Pulse Ox 98 09/06/16 08:54 - Labs Labs: Laboratory Results - last 24 hr 09/05/16 09/05/16 09/06/16 17:10 21:47 06:25 POC Glucose (mg/dL) 132 H 139 H 137 H
--- NOTE | 2016-09-06 13:00 | CP.PCM.CON ---
History of Present Illness - History of Present Illness History of Present Illness: THE PATIENT IS A 75 YEAR OLD MALE WITH A HISTORY OF CHRONIC ATRIAL FIBRILLATION , HYPERTENSION, HYPERLIPIDEMIA, PUD AND DM. HE HAD A LEFT URETERAL STONE REMOVE ONE WEEK AGO. HE WAS ADMITTED TO [facility] ONE WEEK AGO FOR RAPID ATRIAL FIBRILLATION AND WAS TREATED WITH CARDIZEM, METOPROLOL, CLONIDINE. HE DEVELOPED CHEST PAIN AND HAD ELEVATED TROPONINS AND UNDER WENT A CARDIAC CATH 2 DAYS AGO THAT DID NOT SHOW CAD. HE WAS DISCHARGED TO TCU YESTERDAY DUE TO DECONDITIONING FOR JOSE JUAN. Past Patient History - Infectious Disease Hx of Infectious Diseases: None - Tetanus Immunizations Tetanus Immunization: Unknown - Past Medical History & Family History Past Medical History?: Yes - Past Social History Smoking Status: Former Smoker - CARDIAC Hx Cardiac Disorders: Yes (afib, CHF, huigh cholesterol, HTN) Hx Atrial Fibrillation: Yes (with RVR) Hx Congestive Heart Failure: Yes Hx Hypertension: Yes Other/Comment: s/p cardiac cath 09/03/16 - PULMONARY Hx Respiratory Disorders: Yes (pneumonia) - NEUROLOGICAL Hx Neurological Disorder: No - HEENT Hx HEENT Problems: No Other/Comment: [place] both ears - RENAL Hx Chronic Kidney Disease: No Hx Kidney Stones: Yes (s/p stone removal) - ENDOCRINE/METABOLIC Hx Endocrine Disorders: Yes (DM) Hx Diabetes Mellitus Type 2: Yes - HEMATOLOGICAL/ONCOLOGICAL Hx AIDS: No Hx Human Immunodeficiency Virus (HIV): No - INTEGUMENTARY Hx Dermatological Problems: No - MUSCULOSKELETAL/RHEUMATOLOGICAL Hx Musculoskeletal Disorders: No Hx Falls: No - GASTROINTESTINAL Hx Gastritis: Yes Other/Comment: GERD - GENITOURINARY/GYNECOLOGICAL Hx Genitourinary Disorders: No Hx Urinary Tract Infection: No - PSYCHIATRIC Hx Psychophysiologic Disorder: No Hx Substance Use: No - SURGICAL HISTORY Hx Surgeries: Yes Hx Arthroscopy: Yes Hx Cardiac Catheterization: Yes (09/03/16) Other/Comment: Perforated Ulcer with Sx 1990. s/p cysto uretoroscopy stone removal 09/03/16 - ANESTHESIA Hx Anesthesia: Yes Hx Anesthesia Reactions: No Hx Malignant Hyperthermia: No Meds Allergies/Adverse Reactions: Allergies Allergy/AdvReac Type Severity Reaction Status Date / Time dabigatran etexilate Allergy hot flashes Verified 09/05/16 14:09 [From Pradaxa] - Medications Medications: Current Medications Acetaminophen (Tylenol 325mg Tab) 650 mg PO Q4 PRN PRN Reason: Pain, moderate (4-7) Aspirin (Ecotrin) 81 mg PO DAILY [facility] Last Admin: 09/06/16 08:58 Dose: 81 mg Atorvastatin Calcium (Lipitor) 10 mg PO DAILY [facility] Last Admin: 09/06/16 08:58 Dose: 10 mg Clonidine HCl (Catapres) 0.3 mg PO Q8 [facility] Last Admin: 09/06/16 08:58 Dose: 0.3 mg Clopidogrel Bisulfate (Plavix) 75 mg PO DAILY [facility] Last Admin: 09/06/16 09:01 Dose: 75 mg Diltiazem HCl (Cardizem Cd) 300 mg PO DAILY [facility] Last Admin: 09/06/16 08:57 Dose: 300 mg Enoxaparin Sodium (Lovenox) 40 mg SC DAILY [facility] PRN Reason: Protocol Last Admin: 09/06/16 09:01 Dose: 40 mg Fenofibrate (Tricor) 145 mg PO DAILY [facility] Last Admin: 09/06/16 09:01 Dose: 145 mg Hydrochlorothiazide (Hydrodiuril) 25 mg PO DAILY [facility] Last Admin: 09/06/16 09:01 Dose: 25 mg Lisinopril (Zestril) 10 mg PO DAILY [facility] Last Admin: 09/06/16 08:57 Dose: 10 mg Metformin HCl (Glucophage) 500 mg PO BIDWM [facility] Last Admin: 09/06/16 09:00 Dose: 500 mg Metoprolol Tartrate (Lopressor) 100 mg PO Q12 [facility] Last Admin: 09/06/16 08:58 Dose: 100 mg Ondansetron HCl (Zofran Inj) 4 mg IVP Q4 PRN PRN Reason: Nausea/Vomiting Sitagliptin Phosphate (Januvia) 100 mg PO DAILY [facility] Last Admin: 09/06/16 08:58 Dose: 100 mg Sucralfate (Carafate Oral Susp) 1 gm PO BID [facility] Last Admin: 09/06/16 08:57 Dose: 1 gm Tamsulosin HCl (Flomax) 0.4 mg PO DAILY [facility] Last Admin: 09/06/16 08:58 Dose: 0.4 mg Tramadol HCl (Ultram) 50 mg PO TID PRN PRN Reason: SEVERE PAIN ONLY Physical Exam - Respiratory Exam Respiratory Exam: Clear to Auscultation Bilateral - Cardiovascular Exam Cardiovascular Exam: Irregular Rhythm, +S1, +S2 - Extremities Exam Extremities exam: Positive for: normal inspection Results - Vital Signs Recent Vital Signs: Last Vital Signs Temp 98.2 F 09/06/16 08:54 Pulse 70 09/06/16 08:58 Resp 20 09/06/16 08:54 BP 139/80 09/06/16 08:58 Pulse Ox 98 09/06/16 08:54 - Labs Labs: Laboratory Results - last 24 hr 09/05/16 09/05/16 09/06/16 17:10 21:47 06:25 POC Glucose (mg/dL) 132 H 139 H 137 H 09/06/16 11:11 POC Glucose (mg/dL) 221 H Assessment & Plan - Assessment and Plan (Free Text) Assessment: CHRONIC ATRIAL FIBRILLATION HYPERTENSION HYPERLIPIDEMIA DM PUD DECONDITIONING Plan: CONTINUE CARDIZEM, CLONIDINE, METOPROLOL, ZESTRIL, ASPIRIN, ATORVASTATIN, FENOFIBRATE, JANUVIA, GLUCOPHAGE, DVT DOSE LOVENOX NOTE: THE PATIENT AND REFUSE FULL DOSE ANTICOAGULATION FOR ATRIAL FIBRILLATION DESPITE BEING TOLD OF RISK OF THROMBUS AND STROKE
[2016-09-06 17:24] LABS: HEMATOCRIT 29.3 % (35.0-51.0); MEAN CELL VOLUME 86.7 fl (80.0-94.0); MEAN CORPUSCULAR HGB CONC 31.1 g/dL (33.0-37.0); RED CELL DISTRIBUTION WIDTH 15.1 % (11.5-14.5); WHITE BLOOD COUNT 11.4 K/uL (4.8-10.8)
[2016-09-07 08:15] VITALS: O2SAT 98
[2016-09-07] MEDS: Sucralfate 1 gm/10 ml Oral Susp UD PO SCH (08:53)
[2016-09-07] MEDS: diltiaZEM 300 mg/24 Hours CD Cap PO SCH (08:55)
[2016-09-07] MEDS ORDERED: Sodium Chloride 0.9% 500 ML IV ONE (09:13)
[2016-09-07 09:19] LABS: ABG ALLEN TEST YES; ARTERIAL BLOOD GAS HCO3 30.9 mmol/L (21-28); ARTERIAL BLOOD GAS O2 CAPACITY 11.2 mL/dL (16-24); ARTERIAL BLOOD GAS O2 CONTENT 11.3 ML/dL (15-23); ARTERIAL BLOOD GAS PH 7.53 (7.35-7.45); ARTERIAL BLOOD GAS PO2 138 mm/Hg (80-100); ARTERIAL BLOOD HGB O2 SAT 97.8 % (95.0-98.0); CARBOXYHEMOGLOBIN 1.8 % (0.5-1.5); HHB -0.8 % (0.0-5.0); METHEMOGLOBIN 1.2 % (0.0-3.0)
[2016-09-07 09:38] LABS: BASO # 0.1 K/uL (0.0-0.2); BASO % 0.5 % (0.0-2.0); EOS # 0.2 K/uL (0.0-0.7); EOS % 1.8 % (0.0-4.0); HEMATOCRIT 23.8 % (35.0-51.0); LYMPH # 1.9 K/uL (1.0-4.3); LYMPH % 14.6 % (20.0-40.0); MEAN CELL VOLUME 85.8 fl (80.0-94.0); MEAN CORPUSCULAR HEMOGLOBIN 27.6 pg (27.0-31.0); MEAN CORPUSCULAR HGB CONC 32.2 g/dL (33.0-37.0); MEAN PLATELET VOLUME 8.7 fl (7.2-11.7); MONO # 0.6 K/uL (0.0-0.8); MONO % 4.7 % (0.0-10.0); NEUT # 10.1 K/uL (1.8-7.0); NEUT % 78.4 % (50.0-75.0); NRBC % 0.1 % (0.0-0.0); RED CELL DISTRIBUTION WIDTH 15.3 % (11.5-14.5); WHITE BLOOD COUNT 12.8 K/uL (4.8-10.8)
[2016-09-07 09:39] VITALS: BP 125/52; PULSE 105; RESP 21; TEMP 98.6
[2016-09-07 09:49] LABS: BLOOD UREA NITROGEN 43 mg/dl (9-20); CALCIUM 8.9 mg/dL (8.4-10.2); CARBON DIOXIDE 28 mmol/L (22-30); CHLORIDE 102 mmol/L (98-107); GFR AFRICAN-AMERICAN > 60; GLUCOSE,RANDOM 213 mg/dL (75-110); MAGNESIUM 1.8 MG/DL (1.6-2.3); POTASSIUM 3.8 MMOL/L (3.6-5.0); SODIUM 139 mmol/l (132-148)
--- NOTE | 2016-09-07 10:10 | PCM.RRTMUL ---
<Shaina Robin - Last Filed: 09/07/16 11:26> [employer] Nurse Assessment - Situation [employer] Responder Arrival Time:: 09:10 Location:: TCU Room Number:: 413 [employer] Reason for Call: Tachycardia [employer] Called By: RN - IV IV Inserted during [employer]?: Yes IV Fluids Initiated During [employer]?: NS 500cc IV bolus New IV Insertion Tolerance:: Excellent - Respiratory Oxygen Delivery Method:: Nasal Cannula Received Nebulizer Treatments:: No Was the Patient Ventilated with Bag/Mask 100% O2?: No Secretions Suctioned?: No Was the Patient Intubated?: No Was the Patient Placed on a Ventilator?: No - Medication Medications Administered During [employer] :: Protonix IV - Diagnostic Test Ordered EKG:: Yes Chest X-Ray:: Yes CT Scan:: No - Stat Labs Ordered [employer] Stat Labs Ordered:: CBC, BMP, PT/PTT, TROPONIN, ABG CPR started during [employer]?: No - Vital Signs Blood Pressure:: 125/52 Pulse Rate:: 105 Respiratory Rate:: 21 Temperature:: 98.6 F Oxygen Saturation:: 100 - Storm Coma Scale Coma Scale Eye Opening:: Spontaneous Coma Scale Motor:: Obeys Commands Movement Coma Scale Verbal:: Oriented Coma Scale Total:: 15 - Time [employer] Ended Time [employer] Ended:: 09:35 - Vital Signs at end of [employer] Blood Pressure:: 124/60 Pulse Rate:: 106 Respiratory Rate:: 21 Temperature:: 98.6 F O2 Sat by Pulse Oximetry:: 100 - Recommendations 5) [employer] Level of Care Recommendations: Remain in current setting I.Reason for [employer] - A) Acute Change in Patient: Subjective: [employer] time :9:06 am [employer] arrival time: 9:08 am [employer] location: [facility] [employer] vitals:125/52 , O2:99%, HR: 149 [employer] was called on a 75 YO M w/ h/o chronic atrial fibrilation, perforated ulcer , HTN, Hyperlipedemia when patients heart rate was transiently noted to be increased to 149 and complaining of SOB. He is a patient who had a cardiac cath done two days ago that did not show CAD and was started on Asprin. He has been having dark colored stools for the past two days that were FOBT positive. Pt denies any dizziness, chest pain , but was at bedside and has noted him to be increasingly tired and SOB. By the time the medical team arrived his heart rate had dropped from 149 to 97 . O: General: Patient is seen resting comfortably with at bedside, with slight increased work of breathing CVS: S1S2 heard, Resp: CTAB, no w/r/r Abd: Soft, Right upper quadrant tenderness on palpation Neuro: AAOx3, CN I-XII grossly intact [employer] intervention: EKG: Same as baseline CXR: ABG: CBC: Hgb declining from 12.3 ->9.1->7.7 BMP Mg+ Troponin Blood transfusion request signed by patient and at bedside Protonix 80 mg IVP GI consulted Cardio made aware. Dr. Pereira was at bedside during [employer]. Dr. Tran Gibson was present during the entire [employer] at bedside and spoke with GI, Cardio, Patients , and family over the phone and answered all questions. A:75 YO M w/ PMH AFIB RVR, HTN, HLD, NIDDMII, CHF, hx perforated ulcer was noted to be transiently tachycardic and has had 2 days of dark colored stool which are FOBT positive w/ a dropping hb of 7.7 1) Follow up labs 2) Type and crossmatch 3) Transfuse one unit of blood, patient is symptomatic with a dropping Hb of 7.7 4) EKG reviewed, no acute changes from previous EKG 5) D/C Asprin 6) Start Protonix 40 mg Q12 7) GI consulted <Tran Gibson K - Last Filed: 09/07/16 19:02> Attending/Attestation - Attestation I have personally seen and examined this patient.: Yes I have fully participated in the care of the patient.: Yes I have reviewed all pertinent clinical information, including history, physical exam and plan: Yes Notes (Text): 09/07/16 19:[address] SHAINA ROBIN. AGREE WITH FINDINGS AND PLAN ABOVE. PATIENT HGB 7.7 SYMPTOMATIC ANEMIA WILL TRANSFUSE PATIENT ONE UNIT PRBC. EGD SCHEDULED [facility] DR. [place] TODAY. PATIENT HD STABLE. HR CONTROLLED. BP 117- 125 SYSTOLICS. PATIENT RECENTLY HAD CARDIAC CATHETERIZATION LESS THAN ONE WEEK AGO, WHICH WAS NORMAL. PATIENT STABLE FOR EGD.
--- NOTE | 2016-09-07 12:06 | CP.PCM.PN ---
Subjective - Date & Time of Evaluation Date of Evaluation: 09/07/16 Time of Evaluation: 09:15 - Subjective Subjective: PT COMPLAINED OF FEELING WEAK Objective - Vital Signs/Intake and Output Vital Signs (last 24 hours): Temp Pulse Resp BP Pulse Ox 98.6 F 105 H 21 125/52 L 98 09/07/16 11:26 09/07/16 11:26 09/07/16 11:26 09/07/16 11:26 09/07/16 08:14 - Medications Medications: Current Medications Acetaminophen (Tylenol 325mg Tab) 650 mg PO Q4 PRN PRN Reason: Pain, moderate (4-7) Atorvastatin Calcium (Lipitor) 10 mg PO DAILY@[facility] Clonidine HCl (Catapres) 0.3 mg PO Q8 [facility] Last Admin: 09/07/16 09:00 Dose: Not Given Diltiazem HCl (Cardizem Cd) 300 mg PO DAILY [facility] Last Admin: 09/07/16 08:55 Dose: 300 mg Fenofibrate (Tricor) 145 mg PO DAILY [facility] Last Admin: 09/07/16 09:04 Dose: 145 mg Hydrochlorothiazide (Hydrodiuril) 25 mg PO DAILY [facility] Last Admin: 09/07/16 09:01 Dose: 25 mg Lisinopril (Zestril) 10 mg PO DAILY [facility] Last Admin: 09/07/16 09:04 Dose: 10 mg Metformin HCl (Glucophage) 500 mg PO BIDWM [facility] Last Admin: 09/07/16 09:00 Dose: Not Given Metoprolol Tartrate (Lopressor) 100 mg PO Q12 [facility] Last Admin: 09/07/16 09:03 Dose: 100 mg Ondansetron HCl (Zofran Inj) 4 mg IVP Q4 PRN PRN Reason: Nausea/Vomiting Pantoprazole Sodium (Protonix Inj) 40 mg IVP Q12 [facility] Sitagliptin Phosphate (Januvia) 100 mg PO DAILY [facility] Last Admin: 09/07/16 09:00 Dose: Not Given Sucralfate (Carafate Oral Susp) 1 gm PO BID [facility] Last Admin: 09/07/16 08:53 Dose: 1 gm Tamsulosin HCl (Flomax) 0.4 mg PO DAILY [facility] Last Admin: 09/07/16 08:56 Dose: 0.4 mg Tramadol HCl (Ultram) 50 mg PO TID PRN PRN Reason: SEVERE PAIN ONLY - Labs Labs: 09/07/16 09:25 09/07/16 09:25 - Respiratory Exam Respiratory Exam: Clear to Ausculation Bilateral - Cardiovascular Exam Cardiovascular Exam: Tachycardia, Irregular Rhythm, +S1, +S2 - Extremities Exam Extremities Exam: Normal Inspection - Additional Findings Additional findings: THE ELIJAH WAS BLACK YESTERDAY PM SO A CBC WAS ORDERED AND ASPIRINT AND DVT PROPHYLAXIS DOSE LOVENOX WAS STOPPED H/H LSAT NIGHT 12/18 AN PODIATRIC FOOT AND ANKLE SPECIALIST WAS CALLED THIS AM FOR TACHYCARDIA AND HE WAS IN ATRIAL FIBRILLATION WITH RVR BUT IT SLOWED DOWN QUICKLY BUT HE COMPLAINS OF FEELING WEAK AND LOOKED PALE Assessment and Plan - Assessment and Plan (Free Text) Assessment: ATRIAL FIBRILLATION HYPERTENSION PUD HISTORY Plan: A CBC WILL BE DRAWN AND HE WILL BE TRANSFUSED IF NEEDED AND GI WILL BE CALLED TO SEE HIM
--- NOTE | 2016-09-07 13:35 | RAD ---
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 Edgardo the FINDINGS: LUNGS: Poor inspiration with low lung volumes, mild crowded bronchovascular markings. There is bibasilar atelectasis left greater than right. Developing lower lobe infiltrate could be excluded with followup radiographs PLEURA: No pneumothorax or pleural fluid seen. CARDIOVASCULAR: Heart appears enlarged. OSSEOUS STRUCTURES: Degenerative changes both shoulder girdles. TheNo significant abnormalities. VISUALIZED UPPER ABDOMEN: Normal. OTHER FINDINGS: None. IMPRESSION: Poor inspiration with low lung volumes, mild crowded bronchovascular markings. There is bibasilar atelectasis left greater than right. Developing lower lobe infiltrate could be excluded with followup radiographs are
--- NOTE | 2016-09-07 17:07 | CP.PCM.DIS ---
Provider - Provider Date of Admission: 09/05/16 14:10 Attending physician: Tran Gibson DO Primary care physician: García Moura MD Consults: Dr Maya Time Spent in preparation of Discharge (in minutes): 35 Diagnosis - Discharge Diagnosis (1) Chronic duodenal ulcer with bleeding Status: Acute Comment: for admission to ICU. keep on NPO. IV Protonix drip. Dr Maya on consult. tranfuse 2 more units of PRBC. repeat CBC (2) Atrial fibrillation with RVR Status: Acute Comment: rate controlled. hold Plavix and ASA (3) Elevated troponin Status: Acute Comment: negative for angiographic evidence CAD on cardiac cath (4) HTN (hypertension) Status: Chronic Comment: BP stable. continue Metoprolol 50mg PO q 12hrs (5) DM type 2 (diabetes mellitus, type 2) Status: Chronic Comment: BS controlled. accuchek ACHS with Lispro coverage Hospital Course - Lab Results Lab Results: Most Recent Lab Values WBC 12.8 K/uL (4.8-10.8) H 09/07/16 09:25 RBC 2.78 Mil/uL (4.40-5.90) L 09/07/16 09:25 Hgb 7.7 g/dL (12.0-18.0) L 09/07/16 09:25 Hct 23.8 % (35.0-51.0) L 09/07/16 09:25 MCV 85.8 fl (80.0-94.0) 09/07/16 09:25 MCH 27.6 pg (27.0-31.0) 09/07/16 09:25 MCHC 32.2 g/dL (33.0-37.0) L 09/07/16 09:25 RDW 15.3 % (11.5-14.5) H 09/07/16 09:25 Plt Count 327 K/uL (130-400) 09/07/16 09:25 MPV 8.7 fl (7.2-11.7) 09/07/16 09:25 Neut % (Auto) 78.4 % (50.0-75.0) H 09/07/16 09:25 Lymph % (Auto) 14.6 % (20.0-40.0) L 09/07/16 09:25 [place] % (Auto) 4.7 % (0.0-10.0) 09/07/16 09:25 Eos % (Auto) 1.8 % (0.0-4.0) 09/07/16 09:25 Baso % (Auto) 0.5 % (0.0-2.0) 09/07/16 09:25 Neut # 10.1 K/uL (1.8-7.0) H 09/07/16 09:25 Lymph # 1.9 K/uL (1.0-4.3) 09/07/16 09:25 [place] # 0.6 K/uL (0.0-0.8) 09/07/16 09:25 Eos # 0.2 K/uL (0.0-0.7) 09/07/16 09:25 Baso # 0.1 K/uL (0.0-0.2) 09/07/16 09:25 pCO2 37 mm/Hg (35-45) 09/07/16 09:10 pO2 138 mm/Hg (80-100) H 09/07/16 09:10 HCO3 30.9 mmol/L (21-28) H 09/07/16 09:10 ABG pH 7.53 (7.35-7.45) H 09/07/16 09:10 ABG Total CO2 32.0 mmol/L (22-28) H 09/07/16 09:10 ABG O2 Saturation 100.8 % (95-98) H 09/07/16 09:10 ABG O2 Content 11.3 ML/dL (15-23) L 09/07/16 09:10 ABG Base Excess 7.6 mmol/L (-2.0-3.0) H 09/07/16 09:10 ABG Hemoglobin 8.0 g/dL (11.7-17.4) L 09/07/16 09:10 ABG Carboxyhemoglobin 1.8 % (0.5-1.5) H 09/07/16 09:10 POC ABG HHb (Measured) -0.8 % (0.0-5.0) L 09/07/16 09:10 ABG Methemoglobin 1.2 % (0.0-3.0) 09/07/16 09:10 ABG O2 Capacity 11.2 mL/dL (16-24) L 09/07/16 09:10 Len Test Yes 09/07/16 09:10 A-a O2 Difference 30.0 mm/Hg 09/07/16 09:10 Hgb O2 Saturation 97.8 % (95.0-98.0) 09/07/16 09:10 FiO2 30.0 % 09/07/16 09:10 Blood Gas Comments Manager Track,2l, nc 09/07/16 09:10 Crit Value Read Back N 09/07/16 09:10 Sodium 139 mmol/l (132-148) 09/07/16 09:25 Potassium 3.8 MMOL/L (3.6-5.0) 09/07/16 09:25 Chloride 102 mmol/L (98-107) 09/07/16 09:25 Carbon Dioxide 28 mmol/L (22-30) 09/07/16 09:25 Anion Gap 13 (10-20) 09/07/16 09:25 BUN 43 mg/dl (9-20) H 09/07/16 09:25 Creatinine 0.9 mg/dL (0.8-1.5) 09/07/16 09:25 Est GFR ( Amer) > 60 09/07/16 09:25 Est GFR (Non-Af Amer) > 60 09/07/16 09:25 POC Glucose (mg/dL) 208 mg/dL (65-110) H 09/07/16 10:48 Random Glucose 213 mg/dL (75-110) H 09/07/16 09:25 Calcium 8.9 mg/dL (8.4-10.2) 09/07/16 09:25 Magnesium 1.8 MG/DL (1.6-2.3) 09/07/16 09:25 Troponin I 0.1550 ng/mL (0.00-0.120) H* 09/07/16 09:25 Stool Occult Blood Positive (NEGATIVE) H 09/06/16 20:30 Blood Type O POSITIVE 09/07/16 10:00 Blood Type Confirm O POSITIVE 09/07/16 10:12 Antibody Screen Negative 09/07/16 10:00 Crossmatch See Detail 09/07/16 10:00 BBK History Checked No verified bt 09/07/16 10:00 - Hospital Course Hospital Course: 75 yo male with history of AFib with RVR, HTN, HLD, DM2, CHF, history of perforated peptic ulcer admitted in TCU for rehab had PROVIDER NETWORK ANALYST because of rapid heart rate and feeling weak. Pt was also noted to be pale and has been passing black stools. Anti-coagulants and anti-platelets were discontinued yesterday. His Hgb however continued to decline down to 7.7 prior to being transfused. Emergency endoscopy was done which showed non-bleeding gastric ulcer, oozing duodenal ulcers with adherent clot. Epinephrine was injected for hemostasis. It was advised that patient be admitted to ICU for close monitoring because of the actively bleeding ulcers. Discharge Exam - Head Exam Head Exam: ATRAUMATIC - Eye Exam Eye Exam: absent: Scleral icterus - ENT Exam ENT Exam: Mucous Membranes Moist - Respiratory Exam Respiratory Exam: absent: Rhonchi, Wheezes, Respiratory Distress - Cardiovascular Exam Cardiovascular Exam: REGULAR RHYTHM, +S1, +S2 - GI/Abdominal Exam GI & Abdominal Exam: Soft. absent: Tenderness - Rectal Exam Rectal Exam: Deferred - Neurological Exam Neurological exam: Alert, Oriented x3 - Psychiatric Exam Psychiatric exam: Flat Affect - Skin Skin Exam: Dry, Intact Discharge Plan - Follow Up Plan Condition: CRITICAL Disposition: Trans to Other Acute Care Hosp Instructions: Anemia (DC), Fall Prevention (DC) Referrals: García Moura MD [Primary Care Provider] -
--- NOTE | 2016-09-08 00:03 | CARD ---
APPROVED REPORT EKG Measurement Heart [id number] <Conclusion> Atrial fibrillation with rapid ventricular response Nonspecific ST and T wave abnormality Abnormal ECG
--- NOTE | 2016-09-08 08:32 | CON ---
DATE: 09/07/2016 REFERRING PHYSICIAN: Dr. Gibson. REASON FOR CONSULTATION: Melena and anemia. HISTORY OF PRESENT ILLNESS: This is a 75-year-old male who has a history of AFib with RVR, hypertens ion, hyperlipidemia, diabetes, CHF, history of ulcer in the past had a cath recently, started on Plavix and Lovenox, then developed some melena and abdominal discomfort. The patient histor y in the past of loss of appetite, abdominal pain and discomfort. Lying in bed, comfortable, i n no apparent distress. PAST MEDICAL HISTORY: As above. PAST SURGICAL HISTORY: As above. MEDICATIONS: Have been reviewed. REVIEW OF SYSTEMS: All other systems have been reviewed and negative apart from HPI. PHYSICAL EXAMINATION: VITAL SIGNS: Here in the hospital, grossly unremarkable . GENERAL: A pleasant, elderly-appearing male lying in bed, comfortable, in no apparent distress. HEAD: Normocephalic, atraumatic. EYES: Pupils equally reactive to light bilaterally. No conjunctival pallor or icterus. NECK: Supple, normal range of motion, no lymphadenopathy. LUNGS: bilaterally. HEART: S1, S2. Regular rate and rhythm. No murmurs appreciated. ABDOMEN: Soft, nontender. Some discomfort in the lower quadrant . RECTAL: Deferred. EXTREMITIES: Pulses present bilaterally. SKIN: Warm, dry and intact. NEUROLOGIC: Alert and oriented x 3. LABORATORY AND RADIOLOGY DATA: Have been reviewed. Labs include WBC 12.8, hemoglobin 7.7, hematocri t 23.8, platelet count is . INR 1.3. ASSESSMENT AND PLAN: This is a 75-year-old male with melena. Plan gastrointestinal source. W e will follow the patient with you. Thank you for the consult. For now n.p.o., transfuse, Protonix IV. Thank you for the consult. Christiano Maya MD, PhD cc:Tran Gibson [phone] TT: 09/07/2016 17:48:01 Confirmation # [id number] Dictation # [id number]
== END 2016-09-07 14:00 | disposition short-term general hospital (02) | DRG 308 ==
LOC: H.TCU 09-05 14:10
PROVIDERS: ADMIT Student in an Organized Health Care Education/Training Program; ATTEND Student in an Organized Health Care Education/Training Program
DX: I48.2 Chronic atrial fibrillation (principal); K26.4 Chronic or unspecified duodenal ulcer with hemorrhage; E11.9 Type 2 diabetes mellitus without complications; I11.0 Hypertensive heart disease with heart failure; I50.9 Heart failure, unspecified; K25.9 Gastric ulcer, unspecified as acute or chronic, without hemorrhage or perforation; D50.0 Iron deficiency anemia secondary to blood loss (chronic); E78.5 Hyperlipidemia, unspecified; E78.1 Pure hyperglyceridemia; E78.00 Pure hypercholesterolemia, unspecified; Z98.61 Coronary angioplasty status

== ENCOUNTER 2016-09-07 13:13 | Day surgery (SDC) | payer MEDICARE, BC ==
[2016-09-07] MEDS ORDERED: Propofol 10 mg/ml Inj (20 ML) ONE (14:36)
[2016-09-07] MEDS ORDERED: Etomidate 20 mg/10ml Inj IV ONE (14:36)
[2016-09-07] MEDS ORDERED: Lactated Ringer's 500 ML IV ONE (14:53)
[2016-09-07] MEDS ORDERED: EPINEPHrine 1 mg/ml (1:1000) Inj ONE ×2 (14:58→15:01)
[2016-09-07] MEDS ORDERED: Metoprolol 1 mg/ml Inj IVP ONE (15:07)
[2016-09-07 15:21] VITALS: TEMP 99
[2016-09-07 15:37] VITALS: BP 127/67; PULSE 82; RESP 20; O2SAT 98
== END 2016-09-07 15:40 | disposition short-term general hospital (02) ==
LOC: H.ENDO 13:13
PROVIDERS: ATTEND Internal Medicine Gastroenterology
DX: D64.9 Anemia, unspecified (principal); I48.91 Unspecified atrial fibrillation; E11.9 Type 2 diabetes mellitus without complications; I10 Essential (primary) hypertension; K29.70 Gastritis, unspecified, without bleeding; K25.9 Gastric ulcer, unspecified as acute or chronic, without hemorrhage or perforation; K26.4 Chronic or unspecified duodenal ulcer with hemorrhage; K92.1 Melena
CPT/HCPCS: 43239; 72HRC

== ENCOUNTER 2016-09-07 15:44 | Inpatient (IN) | payer MEDICARE, BC ==
[2016-09-07 15:44] VITALS: BMI 33.9
[2016-09-07] MEDS ORDERED: Phenylephrine 10 mg/ml Inj ONE (15:53)
[2016-09-07 16:28] LABS: BASO # 0.1 K/uL (0.0-0.2); BASO % 0.6 % (0.0-2.0); EOS # 0.3 K/uL (0.0-0.7); EOS % 2.1 % (0.0-4.0); HEMATOCRIT 26.3 % (35.0-51.0); LYMPH % 15.5 % (20.0-40.0); MEAN CELL VOLUME 85.6 fl (80.0-94.0); MEAN CORPUSCULAR HEMOGLOBIN 27.7 pg (27.0-31.0); MEAN CORPUSCULAR HGB CONC 32.4 g/dL (33.0-37.0); MEAN PLATELET VOLUME 8.1 fl (7.2-11.7); MONO # 0.8 K/uL (0.0-0.8); MONO % 6.4 % (0.0-10.0); NEUT # 9.7 K/uL (1.8-7.0); NEUT % 75.4 % (50.0-75.0); NRBC % 0.1 % (0.0-0.0); RED CELL DISTRIBUTION WIDTH 14.8 % (11.5-14.5); WHITE BLOOD COUNT 12.8 K/uL (4.8-10.8)
--- NOTE | 2016-09-07 16:29 | ED PDOC ---
HPI: General Adult Time Seen by Provider: 09/07/16 15:49 Chief Complaint (Nursing): Abdominal Pain Chief Complaint (Provider): Bleeding Ulcer History Per: Patient History/Exam Limitations: no limitations Onset/Duration Of Symptoms: Sudden Onset Current Symptoms Are (Timing): Still Present Severity: Moderate Additional Complaint(s): Giorgio Nina is a 75 y/o male presenting to the ER on 09/07/2016 after being sent from an endoscopy procedure after his upper EGD revealed a bleeding ulcer. Patient was recently in TCU for anemia. Patient also had an RETAIL ANALYTICS MANAGER this morning for rapid A-fib and was found to have mildly elevated troponin values. Patient received anesthesia, 1 unit of blood with 2 units cross-matched and pending. Vitals were stable after the procedure. Upon arrival to the ED, patient has no complaints, and is normotensive with his A-fib rate controlled. Past Medical History Reviewed: Historical Data, Nursing Documentation, Vital Signs Vital Signs: Last Vital Signs Temp 98.4 F 09/11/16 11:34 Pulse 110 H 09/11/16 11:11 Resp 18 09/11/16 10:00 BP 156/84 H 09/11/16 11:11 Pulse Ox 93 L 09/11/16 10:00 - Medical History PMH: Atrial Fibrillation (with RVR), CHF, Gastritis, HTN, Hypercholesterolemia, Kidney Stones (s/p stone removal), Pneumonia Denies: HIV, Chronic Kidney Disease - Surgical History Surgical History: Endoscopy (09/07/16) - Family History Family History: States: Unknown Family Hx - Social History Current smoker - smoking cessation education provided: No Alcohol: None Drugs: Denies - Home Medications Home Medications: Ambulatory Orders Medication Instructions Recorded Tamsulosin [Flomax] 0.4 mg PO DAILY #14 cap 08/27/16 metFORMIN [glucOPHAGE] 500 mg PO BID 08/27/16 traMADol [Ultram] 50 mg PO TID PRN #15 tab 08/27/16 Acetaminophen [Tylenol 325mg tab] 650 mg PO Q4 PRN tab 09/05/16 Atorvastatin [Lipitor] 10 mg PO DAILY tab 09/05/16 Lisinopril [Zestril] 10 mg PO DAILY tab 09/05/16 Metoprolol Tartrate [Lopressor] 100 mg PO Q12 tab 09/05/16 Ondansetron [Zofran Inj] 4 mg IVP Q4 PRN vial 09/05/16 SITagliptin [Januvia] 100 mg PO DAILY tab 09/05/16 Sucralfate [Carafate Oral Susp] 1 gm PO BID 09/05/16 cloNIDine [Catapres] 0.3 mg PO Q8 tab 09/05/16 diltiaZEM CD [Cardizem CD] 300 mg PO DAILY cap 09/05/16 hydroCHLOROthiazide [Hydrodiuril] 25 mg PO DAILY tab 09/05/16 Fenofibrate [Tricor] 145 mg PO DAILY 09/07/16 Pantoprazole [Protonix Inj] 40 mg IV Q12H 09/07/16 - Allergies Allergies/Adverse Reactions: Allergies Allergy/AdvReac Type Severity Reaction Status Date / Time dabigatran etexilate Allergy hot flashes Verified 09/05/16 14:09 [From Pradaxa] Review of Systems ROS Statement: Except As Marked, All Systems Reviewed And Found Negative Respiratory: Positive for: Shortness of Breath Gastrointestinal: Positive for: Other ((+) dark stools ) Neurological: Positive for: Dizziness Physical Exam - Reviewed Nursing Documentation Reviewed: Yes Vital Signs Reviewed: Yes - Physical Exam Appears: Positive for: Non-toxic, No Acute Distress Head Exam: Positive for: ATRAUMATIC, NORMOCEPHALIC Skin: Positive for: Pallor ((+) mild ) Eye Exam: Positive for: Normal appearance, EOMI, PERRL ENT: Positive for: Normal ENT Inspection. Negative for: Pharyngeal Erythema, Tonsillar Exudate, Tonsillar Swelling Neck: Positive for: Normal, Painless ROM, Supple Cardiovascular/Chest: Positive for: Regular Rate, Rhythm. Negative for: Murmur Respiratory: Positive for: Normal Breath Sounds. Negative for: Wheezing, Respiratory Distress Gastrointestinal/Abdominal: Positive for: Normal Exam, Soft. Negative for: Tenderness, Mass, Distended, Guarding, Rebound Extremity: Positive for: Normal ROM. Negative for: Deformity, Swelling Neurologic/Psych: Positive for: Alert, Oriented. Negative for: Motor/Sensory Deficits - Laboratory Results Result Diagrams: 09/11/16 09:05 09/11/16 09:05 - ECG ECG: Positive for: Interpreted By Me ECG Rhythm: Positive for: Atrial Fibrillation, Nonspecific Changes O2 Sat by Pulse Oximetry: 98 Pulse Ox Interpretation: Normal - Critical Care Total Time (In Min): 35 Comments: discussed case with multiple physicians including anesthesia, ICU and hospitalist. Medical Decision Making Medical Decision Makin:49 Initial Impression- 75 y/o male with bleeding ulcer Initial Plan- * EKG * BMP * Troponin * CBC w/ differential 16:11 Arrangements have been made for ICU admission. Dr Chavis, hospitalist hospice liaison, will be admitting the pt to ICU. Documented by Zuly Lima, acting as a scribe for Christiano Carreon III, DO All medical record entries made by the Scribe were at my direction and personally dictated by me. I have reviewed the chart and agree that the record accurately reflects my personal performance of the history, physical exam, medical decision making, and the department course for this patient. I have also personally directed, reviewed, and agree with the discharge instructions and disposition. Disposition - Clinical Impression Clinical Impression: Elevated troponin, Acute post-hemorrhagic anemia, Upper GI bleeding, Chronic atrial fibrillation - Patient ED Disposition Is Patient to be Admitted: Yes Counseled Patient/Family Regarding: Studies Performed, Diagnosis - Disposition Disposition Time: 16:11 Condition: GUARDED - Pt Status Changed To: Hospital Disposition Of: Inpatient - Admit Certification Admit to Inpatient:: After my assessment, the patient will require hospitalization for at least two midnights. This is because of the severity of symptoms shown, intensity of services needed, and/or the medical risk in this patient being treated as an outpatient. - POA Present On Arrival: None
[2016-09-07 16:40] LABS: BLOOD UREA NITROGEN 38 mg/dl (9-20); CALCIUM 8.5 mg/dL (8.4-10.2); CARBON DIOXIDE 30 mmol/L (22-30); CHLORIDE 103 mmol/L (98-107); GFR AFRICAN-AMERICAN > 60; GLUCOSE,RANDOM 156 mg/dL (75-110); POTASSIUM 4.4 MMOL/L (3.6-5.0); SODIUM 140 mmol/l (132-148)
--- NOTE | 2016-09-07 17:22 | CP.PCM.HP ---
History of Present Illness - History of Present Illness History of Present Illness: 75 yo male with history of AFib with RVR, HTN, HLD, DM2, CHF, history of perforated peptic ulcer admitted in TCU for rehab had NIGHT WAREHOUSE MANAGER because of AFib with RVR and feeling weak. Pt was also noted to be pale and has been passing black stools. Anti-coagulants and anti-platelets were discontinued yesterday. His Hgb however continued to decline down to 7.7 prior to being transfused. Emergency endoscopy was done which showed non-bleeding gastric ulcer, oozing duodenal ulcers with adherent clot. Epinephrine was injected for hemostasis. It was advised that patient be admitted to ICU for close monitoring because of the actively bleeding ulcers. Present on Admission - Present on Admission Any Indicators Present on Admission: No History of DVT/PE: No History of Uncontrolled Diabetes: No Urinary Catheter: No Decubitus Ulcer Present: No Review of Systems - Review of Systems All systems: reviewed and no additional remarkable complaints except (aside from those mentioned above, 12 point system review were negative by me) Past Patient History - Infectious Disease Hx of Infectious Diseases: None - Tetanus Immunizations Tetanus Immunization: Unknown - Past Medical History & Family History Past Medical History?: Yes - Past Social History Smoking Status: Never Smoked Alcohol: None Drugs: Denies Home Situation {Lives}: With Family - CARDIAC Hx Atrial Fibrillation: Yes (with RVR) Hx Congestive Heart Failure: Yes Hx Hypercholesterolemia: Yes Hx Hypertension: Yes - PULMONARY Hx Pneumonia: Yes - NEUROLOGICAL Hx Neurological Disorder: No - HEENT Hx HEENT Problems: No - RENAL Hx Chronic Kidney Disease: No Hx Kidney Stones: Yes (s/p stone removal) - ENDOCRINE/METABOLIC Hx Endocrine Disorders: Yes (DM) - HEMATOLOGICAL/ONCOLOGICAL Hx Human Immunodeficiency Virus (HIV): No - INTEGUMENTARY Hx Dermatological Problems: No - MUSCULOSKELETAL/RHEUMATOLOGICAL Hx Musculoskeletal Disorders: No - GASTROINTESTINAL Hx Gastritis: Yes - GENITOURINARY/GYNECOLOGICAL Hx Genitourinary Disorders: No - PSYCHIATRIC Hx Psychophysiologic Disorder: No Hx Substance Use: No - SURGICAL HISTORY Hx Cardiac Catheterization: Yes (09/03/16) Other/Comment: Perforated Ulcer with Sx 1990. s/p cysto uretoroscopy stone removal 09/03/16 - ANESTHESIA Hx Anesthesia: Yes Hx Anesthesia Reactions: No Hx Malignant Hyperthermia: No Meds Allergies/Adverse Reactions: Allergies Allergy/AdvReac Type Severity Reaction Status Date / Time dabigatran etexilate Allergy hot flashes Verified 09/05/16 14:09 [From Pradaxa] Physical Exam - Constitutional Appears: No Acute Distress - Head Exam Head Exam: ATRAUMATIC - Eye Exam Eye Exam: absent: Scleral icterus - ENT Exam ENT Exam: Mucous Membranes Moist - Neck Exam Neck exam: Negative for: Meningismus - Respiratory Exam Respiratory Exam: absent: Rhonchi, Wheezes, Respiratory Distress - Cardiovascular Exam Cardiovascular Exam: REGULAR RHYTHM, +S1, +S2 - GI/Abdominal Exam GI & Abdominal Exam: Soft. absent: Tenderness - Rectal Exam Rectal Exam: Deferred - Back Exam Back exam: NORMAL INSPECTION - Neurological Exam Neurological exam: Alert, Oriented x3 - Psychiatric Exam Psychiatric exam: Flat Affect - Skin Skin Exam: Dry, Intact, Pallor Results - Vital Signs Recent Vital Signs: Last Vital Signs Temp 98.4 F 09/07/16 15:48 Pulse 98 H 09/07/16 15:48 Resp 14 09/07/16 15:48 BP 129/67 09/07/16 15:48 Pulse Ox 98 09/07/16 16:38 - Labs Result Diagrams: 09/07/16 16:16 09/07/16 16:16 Labs: Laboratory Results - last 24 hr 09/07/16 09/07/16 16:16 16:16 WBC 12.8 H RBC 3.07 L Hgb 8.5 L Hct 26.3 L MCV 85.6 MCH 27.7 MCHC 32.4 L RDW 14.8 H Plt Count 310 MPV 8.1 Neut % (Auto) 75.4 H Lymph % (Auto) 15.5 L [place] % (Auto) 6.4 Eos % (Auto) 2.1 Baso % (Auto) 0.6 Neut # 9.7 H Lymph # 2.0 [place] # 0.8 Eos # 0.3 Baso # 0.1 Sodium 140 Potassium 4.4 Chloride 103 Carbon Dioxide 30 Anion Gap 12 BUN 38 H Creatinine 1.0 Est GFR ( Amer) > 60 Est GFR (Non-Af Amer) > 60 Random Glucose 156 H Calcium 8.5 Troponin I 0.1340 H* Assessment & Plan (1) Chronic duodenal ulcer with bleeding Status: Acute Comment: admit to ICU. continue Protonix drip. NPO except meds. Dr Sotiriadis on GI consult. CBC q 6hrs (2) Atrial fibrillation with RVR Status: Acute Comment: HR controlled. continue Metoprolol 100mg PO q 12hrs. avoid anti- coagulation and anti-platelets (3) Elevated troponin Status: Acute Comment: asymptomatic. cardiac negative for evidence of CAD (4) HTN (hypertension) Status: Chronic Comment: BP stable. continue Metoprolol 100mg PO q 12hrs (5) DM type 2 (diabetes mellitus, type 2) Status: Chronic Comment: accuchek ACHS with low Lispro coverage (6) DVT prophylaxis Status: Acute Comment: venodyne boots while in bed
--- NOTE | 2016-09-07 18:09 | CP.CCUPN ---
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 by RN in the TCU because of AFib with RVR and feeling weak, found to be severely anemic, and underwent EGD showed non-bleeding gastric ulcer , oozing duodenal ulcers with adherent clot, bleeding controlled with Epinephrine Patient received one unit packed RBC ion ER No active bleeding noted since EGD Comfortable, in A-Fib with controlled HR Afebrile CCU Objective - Vital Signs / Intake & Output Vital Signs (Last 4 hours): Vital Signs Temp Pulse Resp BP Pulse Ox 09/07/16 17:30 98.4 F 102 H 20 127/76 96 09/07/16 16:38 98 - Physical Exam Head: Positive for: Atraumatic, Normocephalic Pupils: Positive for: PERRL. Negative for: Sluggish, Non-Reactive Extroacular Muscles: Positive for: EOMI Conjunctiva: Positive for: Normal. Negative for: Injected, Icteric Mouth: Positive for: Moist Mucous Membranes Neck: Positive for: Normal Range of Motion, Trachea Midline. Negative for: Meningeal Signs, MIDLINE TENDERNESS, Paraspinal Tenderness, JVD, Lymphadenopathy , Bruit, Other Respiratory/Chest: Positive for: Clear to Auscultation, Good Air Exchange. Negative for: Respiratory Distress Cardiovascular: Positive for: Irregular Rhythm, Peripheal Pulses Present. Negative for: Tachycardic, Bradycardic Abdomen: Positive for: Tenderness, Distention, Normal Bowel Sounds. Negative for: Peritoneal Signs Neurological: Positive for: GCS=15, CN II-XII Intact, Speech Normal, Motor Func Grossly Intact, Normal Sensory Function Psychiatric: Positive for: Alert, Oriented x 3 - Medications Active Medications: Active Medications Generic Name Dose Route Start Last Admin Trade Name Freq PRN Reason Stop Dose Admin Sodium Chloride 1,000 mls @ 100 mls/hr 09/07/16 17:45 Sodium Chloride 0.9% IV .Q10H KEENAN Pantoprazole Sodium 40 mg/ 100 mls @ 20 mls/hr 09/07/16 17:45 Sodium Chloride IVPB Q5H KEENAN 8 MG/HR Metoprolol Tartrate 100 mg 09/07/16 21:00 Lopressor PO Q12 KEENAN - Patient Studies Lab Studies: Lab Studies 09/07/16 09/07/16 Range/Units 16:16 16:16 WBC 12.8 H (4.8-10.8) K/uL RBC 3.07 L (4.40-5.90) Mil/uL Hgb 8.5 L (12.0-18.0) g/dL Hct 26.3 L (35.0-51.0) % MCV 85.6 (80.0-94.0) fl MCH 27.7 (27.0-31.0) pg MCHC 32.4 L (33.0-37.0) g/dL RDW 14.8 H (11.5-14.5) % Plt Count 310 (130-400) K/uL MPV 8.1 (7.2-11.7) fl Neut % (Auto) 75.4 H (50.0-75.0) % Lymph % (Auto) 15.5 L (20.0-40.0) % [place] % (Auto) 6.4 (0.0-10.0) % Eos % (Auto) 2.1 (0.0-4.0) % Baso % (Auto) 0.6 (0.0-2.0) % Neut # 9.7 H (1.8-7.0) K/uL Lymph # 2.0 (1.0-4.3) K/uL [place] # 0.8 (0.0-0.8) K/uL Eos # 0.3 (0.0-0.7) K/uL Baso # 0.1 (0.0-0.2) K/uL Sodium 140 (132-148) mmol/l Potassium 4.4 (3.6-5.0) MMOL/L Chloride 103 (98-107) mmol/L Carbon Dioxide 30 (22-30) mmol/L Anion Gap 12 (10-20) BUN 38 H (9-20) mg/dl Creatinine 1.0 (0.8-1.5) mg/dL Est GFR ( Amer) > 60 Est GFR (Non-Af Amer) > 60 Random Glucose 156 H (75-110) mg/dL Calcium 8.5 (8.4-10.2) mg/dL Troponin I 0.1340 H* (0.00-0.120) ng/mL Laboratory Results - last 24 hr 09/07/16 09/07/16 16:16 16:16 WBC 12.8 H RBC 3.07 L Hgb 8.5 L Hct 26.3 L MCV 85.6 MCH 27.7 MCHC 32.4 L RDW 14.8 H Plt Count 310 MPV 8.1 Neut % (Auto) 75.4 H Lymph % (Auto) 15.5 L [place] % (Auto) 6.4 Eos % (Auto) 2.1 Baso % (Auto) 0.6 Neut # 9.7 H Lymph # 2.0 [place] # 0.8 Eos # 0.3 Baso # 0.1 Sodium 140 Potassium 4.4 Chloride 103 Carbon Dioxide 30 Anion Gap 12 BUN 38 H Creatinine 1.0 Est GFR ( Amer) > 60 Est GFR (Non-Af Amer) > 60 Random Glucose 156 H Calcium 8.5 Troponin I 0.1340 H* Review of Systems - Respiratory Respiratory: absent: As Per HPI, Cough, Dyspnea, Hemoptysis, Dyspnea on Exertion , Wheezing, Snoring, Stridor, Pain on Inspiration, Chest Congestion, Excessive Mucous Production, Change in Mucous Color, Pain with Coughing, Other, UNREMARKABLE - Gastrointestinal Gastrointestinal: absent: As Per HPI, Abdominal Pain, Belching, Bloating, Change in Bowel Habits, Change in Stool Character, Coffee Ground Emesis, Constipation, Cramping, Diarrhea, Dyspepsia, Dysphagia, Early Satiety, Excessive Flatus, Fecal Incontinence, Heartburn, Hematemesis, Hematochezia, Loose Stools, Melena, Nausea, Odynophagia, Temesmus, Vomiting, Other, UNREMARKABLE Critical Care Progress Note - Nutrition Nutrition: Nutrition Category Date Time Status NPO Diet [DIET] Diets 09/07/16 Dinner Active Assessment/Plan (1) Upper GI bleeding Current Visit: Yes Status: Acute (2) Chronic duodenal ulcer with bleeding Current Visit: Yes Status: Acute Comment: - Acute upper GI bleed most likely PUD/Bleeding dueodenal ulcer R/O malignancy - Anemia sec to acute Blood loss - Nasogastric tube - Two large bore peripheral catheters - Suplemental O2 - NPO - Volume resuscitation - Hold antihypertensives - IV Hydration, with SODIUM CHLORIDE 0.9% INJ @ 100 ml/hr - PANTOPRAZOLE drip - Serial CBCs q 8 /HR, RBC transfusions to keep hemoglobin > 9 inview of CAD, Pos Trop and GI bleeding (3) Acute post-hemorrhagic anemia Current Visit: Yes Status: Acute Comment: - Received one unit Packed RBC - Active type and screen sent today - Consented for blood obtained (4) Atrial fibrillation with rapid ventricular response Current Visit: Yes Status: Chronic Comment: hold all anticoagulations and antiplatelets agnets (5) Elevated troponin Current Visit: Yes Status: Acute Comment: Recent Cardiac cath, normal coronories (6) HLD (hyperlipidemia) Current Visit: No Status: Chronic Comment: Statins on hold till patinet can take PO - Assessment and Plan (Free Text) Assessment: total critical care time 52 minutes Full Code
[2016-09-07] MEDS: Sodium Chloride 0.9% 1,000 ML IV SCH (18:27)
[2016-09-07] MEDS: Pantoprazole 40 MG in Sodium Chloride 0.9% 100 ML IVPB SCH (18:33)
[2016-09-07] MEDS: Sucralfate 1 gm/10 ml Oral Susp UD PO SCH (21:19)
[2016-09-07] MEDS: Insulin Lispro (humaLOG) 100 Units/ml Inj SC SCH (21:39)
[2016-09-07 21:59] LABS: HEMATOCRIT 24.9 % (35.0-51.0); MEAN CELL VOLUME 85.7 fl (80.0-94.0); MEAN CORPUSCULAR HEMOGLOBIN 27.5 pg (27.0-31.0); MEAN CORPUSCULAR HGB CONC 32.1 g/dL (33.0-37.0); RED CELL DISTRIBUTION WIDTH 14.9 % (11.5-14.5)
--- NOTE | 2016-09-07 23:41 | CARD ---
APPROVED REPORT EKG Measurement Heart [id number] <Conclusion> Atrial fibrillation Nonspecific T wave abnormality Abnormal ECG
[2016-09-08] MEDS: Pantoprazole 40 MG in Sodium Chloride 0.9% 100 ML IVPB SCH ×5 (00:36→22:08)
[2016-09-08] MEDS: Sodium Chloride 0.9% 1,000 ML IV SCH ×2 (03:26→14:34)
[2016-09-08 05:26] LABS: BLOOD UREA NITROGEN 28 mg/dl (9-20); CALCIUM 8.1 mg/dL (8.4-10.2); CARBON DIOXIDE 30 mmol/L (22-30); CHLORIDE 107 mmol/L (98-107); GFR AFRICAN-AMERICAN > 60; GLUCOSE,RANDOM 130 mg/dL (75-110); POTASSIUM 4.1 MMOL/L (3.6-5.0); SODIUM 142 mmol/l (132-148)
[2016-09-08 06:34] LABS: HEMATOCRIT 24.2 % (35.0-51.0); MEAN CELL VOLUME 86.2 fl (80.0-94.0); MEAN CORPUSCULAR HGB CONC 32.4 g/dL (33.0-37.0); RED CELL DISTRIBUTION WIDTH 15.2 % (11.5-14.5); WHITE BLOOD COUNT 8.8 K/uL (4.8-10.8)
[2016-09-08] MEDS: Insulin Lispro (humaLOG) 100 Units/ml Inj SC SCH ×4 (06:45→22:04)
[2016-09-08] MEDS: diltiaZEM 300 mg/24 Hours CD Cap PO SCH (08:57)
[2016-09-08] MEDS: Sucralfate 1 gm/10 ml Oral Susp UD PO SCH ×3 (08:57→21:56)
--- NOTE | 2016-09-08 09:39 | CP.PCM.CON ---
History of Present Illness - History of Present Illness History of Present Illness: THE PATIENT IS 75 YEAR OLD MALE WHO HAS A HISTORY OF CHRONIC ATRIAL FIBRILLATION , HYPERTENSION, PUD AND DM. HE HAD A RECENT LEFT URETERAL STONE REMOVAL RECENTLY AND WAS READMITTED LAST WEEK FOR ABDOMINAL PAIN AND RAPID ATRIAL FIBRILLATION. HE HAD CHEST PAIN AND ELEVATED TROPONINS AND HAD A CARDIAC CATH WITH NEGATIVE CAD SO THE ELEVATED TROPONINS WERE FROM THE TACHYCARDIA. HE WENT TO TCU FOR REHAB AND HAD BLACK STOOLS 09/06 AND ON 09/07 HE WAS PALE, WEAK, TACHYCARDIC AND VERY ANEMIC. HE WAS TRANSFUSED AND HAD AN ENDO THAT SHOWED A BLEEDING ULCER AND IT WAS CAUTERIZED AND HE WAS ADMITTED TO THE ICU. CARDIOLOGY WAS ASKED TO FOLLOW HIM. HE NOW FEELS BETTER AND HE DENIES CHEST PAIN OR SOB. Past Patient History - Infectious Disease Hx of Infectious Diseases: None - Tetanus Immunizations Tetanus Immunization: Unknown - Past Medical History & Family History Past Medical History?: Yes - Past Social History Smoking Status: Former Smoker - CARDIAC Hx Congestive Heart Failure: Yes Hx Hypercholesterolemia: Yes Hx Hypertension: Yes Other/Comment: cardiac cath - PULMONARY Hx Pneumonia: Yes - NEUROLOGICAL Hx Neurological Disorder: No - HEENT Other/Comment: [place] both ears - RENAL Hx Kidney Stones: Yes (s/p stone removal) - ENDOCRINE/METABOLIC Hx Endocrine Disorders: Yes (DM) - HEMATOLOGICAL/ONCOLOGICAL Hx Human Immunodeficiency Virus (HIV): No - INTEGUMENTARY Hx Dermatological Problems: No - MUSCULOSKELETAL/RHEUMATOLOGICAL Hx Musculoskeletal Disorders: No - GASTROINTESTINAL Hx Gastritis: Yes - GENITOURINARY/GYNECOLOGICAL Hx Genitourinary Disorders: No - PSYCHIATRIC Hx Psychophysiologic Disorder: No - SURGICAL HISTORY Other/Comment: Perforated Ulcer with Sx 1990. s/p cysto uretoroscopy stone removal 09/03/16 - ANESTHESIA Hx Anesthesia: Yes Hx Anesthesia Reactions: No Hx Malignant Hyperthermia: No Meds Allergies/Adverse Reactions: Allergies Allergy/AdvReac Type Severity Reaction Status Date / Time dabigatran etexilate Allergy hot flashes Verified 09/05/16 14:09 [From Pradaxa] - Medications Medications: Current Medications Clonidine HCl (Catapres) 0.3 mg PO Q8 [facility] Last Admin: 09/08/16 08:57 Dose: 0.3 mg Diltiazem HCl (Cardizem Cd) 300 mg PO DAILY [facility] Last Admin: 09/08/16 08:57 Dose: 300 mg Sodium Chloride (Sodium Chloride 0.9%) 1,000 mls @ 100 mls/hr IV .Q10H [facility] Last Admin: 09/08/16 03:26 Dose: 100 mls/hr Pantoprazole Sodium 40 mg/ (Sodium Chloride) 100 mls @ 20 mls/hr IVPB Q5H [facility] PRN Reason: 8 MG/HR Last Admin: 09/08/16 06:00 Dose: 20 mls/hr Insulin Human Lispro (Humalog) 0 units SC ACHS [facility] PRN Reason: Protocol Last Admin: 09/08/16 06:45 Dose: Not Given Lisinopril (Zestril) 10 mg PO DAILY [facility] Last Admin: 09/08/16 08:58 Dose: 10 mg Metoprolol Tartrate (Lopressor) 100 mg PO Q12 [facility] Last Admin: 09/08/16 08:58 Dose: 100 mg Sucralfate (Carafate Oral Susp) 1 gm PO QID [facility] Last Admin: 09/08/16 08:57 Dose: 1 gm Physical Exam - Respiratory Exam Respiratory Exam: Clear to Auscultation Bilateral - Cardiovascular Exam Cardiovascular Exam: Irregular Rhythm, +S1, +S2 - Extremities Exam Extremities exam: Positive for: normal inspection - Additional Findings Additional findings: EKG AND LEADERSHIP PROGRAM INTERN ATRIAL FIBRILLATION TROPONIN 0.13 EKG ATRIAL FIBRILLATION WITH RAPID RATE Results - Vital Signs Recent Vital Signs: Last Vital Signs Temp 98.9 F 09/08/16 08:00 Pulse 121 H 09/08/16 08:58 Resp 23 09/08/16 08:00 BP 143/70 09/08/16 08:58 Pulse Ox 96 09/08/16 08:00 - Labs Result Diagrams: 09/08/16 05:00 09/08/16 04:45 Labs: Laboratory Results - last 24 hr 09/07/16 09/07/16 09/07/16 16:16 16:16 21:37 WBC 12.8 H RBC 3.07 L Hgb 8.5 L Hct 26.3 L MCV 85.6 MCH 27.7 MCHC 32.4 L RDW 14.8 H Plt Count 310 MPV 8.1 Neut % (Auto) 75.4 H Lymph % (Auto) 15.5 L [place] % (Auto) 6.4 Eos % (Auto) 2.1 Baso % (Auto) 0.6 Neut # 9.7 H Lymph # 2.0 [place] # 0.8 Eos # 0.3 Baso # 0.1 Sodium 140 Potassium 4.4 Chloride 103 Carbon Dioxide 30 Anion Gap 12 BUN 38 H Creatinine 1.0 Est GFR ( Amer) > 60 Est GFR (Non-Af Amer) > 60 POC Glucose (mg/dL) 157 H Random Glucose 156 H Calcium 8.5 Troponin I 0.1340 H* 09/07/16 09/08/16 09/08/16 21:52 04:45 05:00 WBC 11.0 H 8.8 RBC 2.90 L 2.80 L Hgb 8.0 L 7.8 L Hct 24.9 L 24.2 L MCV 85.7 86.2 MCH 27.5 28.0 MCHC 32.1 L 32.4 L RDW 14.9 H 15.2 H Plt Count 306 295 MPV Neut % (Auto) Lymph % (Auto) [place] % (Auto) Eos % (Auto) Baso % (Auto) Neut # Lymph # [place] # Eos # Baso # Sodium 142 Potassium 4.1 Chloride 107 Carbon Dioxide 30 Anion Gap 10 BUN 28 H Creatinine 1.0 Est GFR ( Amer) > 60 Est GFR (Non-Af Amer) > 60 POC Glucose (mg/dL) Random Glucose 130 H Calcium 8.1 L Troponin I 09/08/16 05:30 WBC RBC Hgb Hct MCV MCH MCHC RDW Plt Count MPV Neut % (Auto) Lymph % (Auto) [place] % (Auto) Eos % (Auto) Baso % (Auto) Neut # Lymph # [place] # Eos # Baso # Sodium Potassium Chloride Carbon Dioxide Anion Gap BUN Creatinine Est GFR ( Amer) Est GFR (Non-Af Amer) POC Glucose (mg/dL) 145 H Random Glucose Calcium Troponin I Assessment & Plan - Assessment and Plan (Free Text) Assessment: PUD WITH GI BLEED CHRONIC ATRIAL FIBRILLATION. MILDLY ELEVATED TROPONIN FROM THE RAPID ATRIAL FIBRILLATION. HYPERTENSION Plan: THE PATIENT HAD ENDOSCOPY WITH CAUTERIZATION AND BLOOD TRANSFUSION CONTINUE CARDIZEM, METOPROLOL, CLONIDINE, CARAFATE AND PROTONIX
--- NOTE | 2016-09-08 10:04 | CP.PCM.PN ---
<Edmar Robin - Last Filed: 09/08/16 10:28> Subjective - Date & Time of Evaluation Date of Evaluation: 09/08/16 Time of Evaluation: 09:55 - Subjective Subjective: 75 YO M w/ PMH of HTN, HLD, A-fib, DM2, CHF and perforated peptic ulcer was transferred to TCU from ER yesterday for evaluation of bleeding duodenal ulcer. - Patient seen with the at bedside and appears to be doing much better today. He does not complain of any abdominal pain, denies, nausea, vomiting. He has been NPO except for meds. He has not had a bowl movement since yesterday, but has been passing urine normal in color. - Patient has been given 1 unit of blood yesterday and the Hb has remained stable. He is scheduled for 2 more units today. Objective - Vital Signs/Intake and Output Vital Signs (last 24 hours): Temp Pulse Resp BP Pulse Ox 98.9 F 121 H 23 143/70 96 09/08/16 08:00 09/08/16 08:58 09/08/16 08:00 09/08/16 08:58 09/08/16 08:00 Intake and Output: 09/08/16 09/08/16 06:59 18:59 Intake Total 1420 Output Total 700 150 Balance 720 -150 - Medications Medications: Current Medications Clonidine HCl (Catapres) 0.3 mg PO Q8 [facility] Last Admin: 09/08/16 08:57 Dose: 0.3 mg Diltiazem HCl (Cardizem Cd) 300 mg PO DAILY [facility] Last Admin: 09/08/16 08:57 Dose: 300 mg Sodium Chloride (Sodium Chloride 0.9%) 1,000 mls @ 100 mls/hr IV .Q10H [facility] Last Admin: 09/08/16 03:26 Dose: 100 mls/hr Pantoprazole Sodium 40 mg/ (Sodium Chloride) 100 mls @ 20 mls/hr IVPB Q5H [facility] PRN Reason: 8 MG/HR Last Admin: 09/08/16 06:00 Dose: 20 mls/hr Insulin Human Lispro (Humalog) 0 units SC ACHS [facility] PRN Reason: Protocol Last Admin: 09/08/16 06:45 Dose: Not Given Lisinopril (Zestril) 10 mg PO DAILY [facility] Last Admin: 09/08/16 08:58 Dose: 10 mg Metoprolol Tartrate (Lopressor) 100 mg PO Q12 [facility] Last Admin: 09/08/16 08:58 Dose: 100 mg Sucralfate (Carafate Oral Susp) 1 gm PO QID [facility] Last Admin: 09/08/16 08:57 Dose: 1 gm - Labs Labs: 09/08/16 05:00 09/08/16 04:45 - Constitutional Appears: No Acute Distress - Eye Exam Eye Exam: Normal appearance - ENT Exam ENT Exam: Mucous Membranes Moist - Respiratory Exam Respiratory Exam: Clear to Ausculation Bilateral, NORMAL BREATHING PATTERN - Cardiovascular Exam Cardiovascular Exam: Irregular Rhythm, +S1, +S2 - GI/Abdominal Exam GI & Abdominal Exam: Soft, Normal Bowel Sounds - Neurological Exam Neurological Exam: Alert, Awake, Oriented x3 - Psychiatric Exam Psychiatric exam: Normal Affect, Normal Mood - Skin Skin Exam: Pallor Assessment and Plan - Assessment and Plan (Free Text) Assessment: 75 YO M w/ PMH of HTN, HLD, A-fib, DM2, CHF and perforated peptic ulcer was transferred to TCU from ER yesterday for evaluation of bleeding duodenal ulcer. (1) Chronic duodenal ulcer with bleeding - Continue monitoring in ICU - continue Protonix drip. - Sucralfate 1 gm PO QID - NPO except meds. - Dr Maya on GI consult. CBC q 6hrs (2) Anemia most likely secondary to GI bleed - 1 Unit of blood received yesterday (09/07/16) - Hb at 7.8 on 09/08/16 @ 4 am. Appears to be stable. - 2 Units of blood scheduled to be transfused today - Repeat CBC (3) Atrial fibrillation with RVR - Diltiazam 300mg PO daily - continue Metoprolol 100mg PO q 12hrs. avoid anti-coagulation and anti- platelets (4) Elevated troponin - Troponin .1340 - asymptomatic. cardiac negative for evidence of CAD (5) HTN (hypertension) - BP stable. - continue Metoprolol 100mg PO q 12hrs - Lisinopril 10 mg PO daily (6) DM type 2 (diabetes mellitus, type 2) - accuchek ACHS with low Lispro coverage (7) DVT prophylaxis - venodyne boots while in bed <Arthur,Tran K - Last Filed: 09/08/16 17:05> Objective - Vital Signs/Intake and Output Vital Signs (last 24 hours): Temp Pulse Resp BP Pulse Ox 98.2 F 62 24 145/105 H 96 09/08/16 16:00 09/08/16 16:25 09/08/16 16:00 09/08/16 16:25 09/08/16 16:00 Intake and Output: 09/08/16 09/08/16 06:59 18:59 Intake Total 1420 650 Output Total 700 150 Balance 720 500 - Medications Medications: Current Medications Clonidine HCl (Catapres) 0.3 mg PO Q8 [facility] Last Admin: 09/08/16 16:25 Dose: 0.3 mg Diltiazem HCl (Cardizem Cd) 300 mg PO DAILY [facility] Last Admin: 09/08/16 08:57 Dose: 300 mg Sodium Chloride (Sodium Chloride 0.9%) 1,000 mls @ 100 mls/hr IV .Q10H [facility] Last Admin: 09/08/16 14:34 Dose: 100 mls/hr Pantoprazole Sodium 40 mg/ (Sodium Chloride) 100 mls @ 20 mls/hr IVPB Q5H [facility] PRN Reason: 8 MG/HR Last Admin: 09/08/16 16:26 Dose: 20 mls/hr Insulin Human Lispro (Humalog) 0 units SC ACHS [facility] PRN Reason: Protocol Last Admin: 09/08/16 16:27 Dose: Not Given Lisinopril (Zestril) 10 mg PO DAILY [facility] Last Admin: 09/08/16 08:58 Dose: 10 mg Metoprolol Tartrate (Lopressor) 100 mg PO Q12 [facility] Last Admin: 09/08/16 08:58 Dose: 100 mg Sucralfate (Carafate Oral Susp) 1 gm PO QID [facility] Last Admin: 09/08/16 14:32 Dose: 1 gm - Labs Labs: 09/08/16 15:13 09/08/16 04:45 Attending/Attestation - Attestation I have personally seen and examined this patient.: Yes I have fully participated in the care of the patient.: Yes I have reviewed all pertinent clinical information, including history, physical exam and plan: Yes Notes (Text): 09/08/16 16:[address] Edmar Robin findings and plan. 75 M with PMH AFIB (no AC), HTN, HLD, NIDDMII, hx perforated ulcer was initially admitted to telemetry 7 days ago for abdominal pain and Afib RVR. Prior to that, the patient had a cysto ureteroscopy stone removal 4 days prior to admission. He presented with loss of appetite, generalized pain, subjective fever, and chills. UA was Negative, no WBC, AFEBRILE. No active disease on chest XR. EKG showed AFIB with RVR, rate 130-150 in ER. He was started on Cardizem drip, and empiric antibiotics. Patient also given PPI. Cardiology was consulted. Pt was stabilized on Cardizem PO, started back on Metoprolol, Clonidine 0.3mg q8h. Rate was controlled, however patient had developed chest pain. Elevated troponins were found, patient was anticoagulated, and cardiac cath was performed by Dr. Bird. Cath showed no angiographic evidence of CAD. Patient was then discharged to TCU 3 days ago. In TCU, patient had several episodes of melena, [employer]ER was called for tachycardia, weakness. Hemoglobin was 7.7 at [employer] from 13.3 prior to admission to TCU. One unit of PRBC was ordered, and EGD was scheduled, GI Dr. Maya. Pt was found to have multiple duodenal ulcers and gastric ulcer. He was then admitted to ICU for protonix drip, NPO, close monitoring with q6 CBC, and 2 more units of PRBC. Today patient H/H improved to 9.6 after two more units. Discussed with Dr. Good, Dr. Douglas. Acute Blood Loss Anemia secondary to Multiple Bleeding Duodenal Ulcers, Gastric Ulcers HD stable Total 3 units PRBC given: H/H after first transfusion 8.5/26.3, 8.0/24.9, 7.8 /24.2 then 2 additional units given, current Hgb 9.6/28.7 EGD showed gastritis, biopsied. Gastric ulcer with clean base, biopsied. Multiple duodenal ulcers oozing blood, biopsied. Repeat Upper Endoscopy in [address] to check healing[address] Dr. Maya GI Consult appreciated and followed Cont Protonix Drip Cont Carafate Cont NPO, PO antihypertensives OK CBC in AM PT eval and treat Afib with RVR controlled continue cardizem and lopressor Cardiology Dr. Pereira following hold all AC Hypertension controlled continue Lopressor continue clonidine 0.3 Q8h continue Lisinopril Hyperlipidemia, Hypertriglyceridemia HOLD PO atorvastatin for home Simvastatin HOLD PO fenofibrate DM Currently NPO accuchecks Hold PO antihyperglycemics sliding scale coverage VTE ppx HOLD
[2016-09-08 15:19] LABS: HEMATOCRIT 28.7 % (35.0-51.0); MEAN CELL VOLUME 86.8 fl (80.0-94.0); MEAN CORPUSCULAR HEMOGLOBIN 29.2 pg (27.0-31.0); MEAN CORPUSCULAR HGB CONC 33.6 g/dL (33.0-37.0); RED CELL DISTRIBUTION WIDTH 15.2 % (11.5-14.5); WHITE BLOOD COUNT 8.7 K/uL (4.8-10.8)
--- NOTE | 2016-09-08 17:15 | CP.CCUPN ---
CCU Subjective - Physician Review Events Since Last Encounter (Free Text): 09/08/16 17:32 The patient was Seen/interviewed and examined by me at the bedside during ICU round, Medical records reviewed and Management issues were discussed and formulated with the house staff. 75 Years old male with PMHx of HTN, HLD, A-Fib, DM2, CHF and history of perforated peptic ulcer, 09/07, [employer] called early in AM by RN in the TCU because of AFib with RVR and feeling weak, found to be severely anemic, and underwent EGD showed non- bleeding gastric ulcer, oozing duodenal ulcers with adherent clot, bleeding controlled with Epinephrine He was transferred from Endoscopy to the ER for further evaluation and mangement of Upper GI bleeding in the sitting of bleeding duodenal ulcer Patient received one unit packed RBC ion ER Last 24H Events: Patient looks clinically better today No active bleeding noted since EGD Comfortable, in A-Fib with controlled HR Afebrile Remains NPO Received total of 1Unit And 2 unit PRBCs today CCU Objective - Vital Signs / Intake & Output Vital Signs (Last 4 hours): Vital Signs Temp Pulse Resp BP Pulse Ox 09/08/16 16:25 62 145/105 H 09/08/16 16:00 98.2 F 73 24 145/106 H 96 09/08/16 14:00 70 24 147/80 97 Intake and Output (Last 8hrs): Intake & Output 09/08/16 09/08/16 09/08/16 06:59 14:59 22:59 Intake Total 1010 650 Output Total 500 150 Balance 510 500 Intake: IV 960 Oral 50 Blood Product 650 Output: Urine 500 150 Urine, Voided 500 150 - Physical Exam Head: Positive for: Atraumatic, Normocephalic Pupils: Positive for: PERRL. Negative for: Sluggish, Non-Reactive Extroacular Muscles: Positive for: EOMI Conjunctiva: Positive for: Normal. Negative for: Injected, Icteric Mouth: Positive for: Moist Mucous Membranes Neck: Positive for: Normal Range of Motion, Trachea Midline. Negative for: Meningeal Signs, MIDLINE TENDERNESS, Paraspinal Tenderness, JVD, Lymphadenopathy , Bruit, Other Respiratory/Chest: Positive for: Clear to Auscultation, Good Air Exchange. Negative for: Respiratory Distress Cardiovascular: Positive for: Irregular Rhythm, Peripheal Pulses Present. Negative for: Tachycardic, Bradycardic Abdomen: Positive for: Tenderness, Distention, Normal Bowel Sounds. Negative for: Peritoneal Signs Neurological: Positive for: GCS=15, CN II-XII Intact, Speech Normal, Motor Func Grossly Intact, Normal Sensory Function Psychiatric: Positive for: Alert, Oriented x 3 - Medications Active Medications: Active Medications Generic Name Dose Route Start Last Admin Trade Name Freq PRN Reason Stop Dose Admin Clonidine HCl 0.3 mg 09/08/16 01:00 09/08/16 16:25 Catapres PO 0.3 mg Q8 [facility] Administration Diltiazem HCl 300 mg 09/08/16 09:00 09/08/16 08:57 Cardizem Cd PO 300 mg DAILY [facility] Administration Sodium Chloride 1,000 mls @ 100 mls/hr 09/07/16 17:45 09/08/16 14:34 Sodium Chloride 0.9% IV 100 mls/hr .Q10H [facility] Administration Pantoprazole Sodium 40 mg/ 100 mls @ 20 mls/hr 09/07/16 17:45 09/08/16 16:26 Sodium Chloride IVPB 20 mls/hr Q5H [facility] Administration 8 MG/HR Insulin Human Lispro 0 units 09/07/16 22:00 09/08/16 16:27 Humalog SC Not Given [facility]S [facility] Protocol Lisinopril 10 mg 09/08/16 09:00 09/08/16 08:58 Zestril PO 10 mg DAILY [facility] Administration Metoprolol Tartrate 100 mg 09/07/16 21:00 09/08/16 08:58 Lopressor PO 100 mg Q12 [facility] Administration Sucralfate 1 gm 09/07/16 22:00 09/08/16 14:32 Carafate Oral Susp PO 1 gm QID [facility] Administration - Patient Studies Lab Studies: Lab Studies 09/08/16 09/08/16 09/08/16 Range/Units 16:05 15:13 11:18 WBC 8.7 (4.8-10.8) K/uL RBC 3.30 L (4.40-5.90) Mil/uL Hgb 9.6 L (12.0-18.0) g/dL Hct 28.7 L (35.0-51.0) % MCV 86.8 (80.0-94.0) fl MCH 29.2 (27.0-31.0) pg MCHC 33.6 (33.0-37.0) g/dL RDW 15.2 H (11.5-14.5) % Plt Count 290 (130-400) K/uL Sodium (132-148) mmol/l Potassium (3.6-5.0) MMOL/L Chloride (98-107) mmol/L Carbon Dioxide (22-30) mmol/L Anion Gap (10-20) BUN (9-20) mg/dl Creatinine (0.8-1.5) mg/dL Est GFR ( Amer) Est GFR (Non-Af Amer) POC Glucose (mg/dL) 140 H 167 H (65-110) mg/dL Random Glucose (75-110) mg/dL Calcium (8.4-10.2) mg/dL 09/08/16 09/08/16 09/08/16 Range/Units 05:30 05:00 04:45 WBC 8.8 (4.8-10.8) K/uL RBC 2.80 L (4.40-5.90) Mil/uL Hgb 7.8 L (12.0-18.0) g/dL Hct 24.2 L (35.0-51.0) % MCV 86.2 (80.0-94.0) fl MCH 28.0 (27.0-31.0) pg MCHC 32.4 L (33.0-37.0) g/dL RDW 15.2 H (11.5-14.5) % Plt Count 295 (130-400) K/uL Sodium 142 (132-148) mmol/l Potassium 4.1 (3.6-5.0) MMOL/L Chloride 107 (98-107) mmol/L Carbon Dioxide 30 (22-30) mmol/L Anion Gap 10 (10-20) BUN 28 H (9-20) mg/dl Creatinine 1.0 (0.8-1.5) mg/dL Est GFR ( Amer) > 60 Est GFR (Non-Af Amer) > 60 POC Glucose (mg/dL) 145 H (65-110) mg/dL Random Glucose 130 H (75-110) mg/dL Calcium 8.1 L (8.4-10.2) mg/dL 09/07/16 09/07/16 Range/Units 21:52 21:37 WBC 11.0 H (4.8-10.8) K/uL RBC 2.90 L (4.40-5.90) Mil/uL Hgb 8.0 L (12.0-18.0) g/dL Hct 24.9 L (35.0-51.0) % MCV 85.7 (80.0-94.0) fl MCH 27.5 (27.0-31.0) pg MCHC 32.1 L (33.0-37.0) g/dL RDW 14.9 H (11.5-14.5) % Plt Count 306 (130-400) K/uL Sodium (132-148) mmol/l Potassium (3.6-5.0) MMOL/L Chloride (98-107) mmol/L Carbon Dioxide (22-30) mmol/L Anion Gap (10-20) BUN (9-20) mg/dl Creatinine (0.8-1.5) mg/dL Est GFR ( Amer) Est GFR (Non-Af Amer) POC Glucose (mg/dL) 157 H (65-110) mg/dL Random Glucose (75-110) mg/dL Calcium (8.4-10.2) mg/dL Laboratory Results - last 24 hr 09/07/16 09/07/16 09/08/16 21:37 21:52 04:45 WBC 11.0 H RBC 2.90 L Hgb 8.0 L Hct 24.9 L MCV 85.7 MCH 27.5 MCHC 32.1 L RDW 14.9 H Plt Count 306 Sodium 142 Potassium 4.1 Chloride 107 Carbon Dioxide 30 Anion Gap 10 BUN 28 H Creatinine 1.0 Est GFR ( Amer) > 60 Est GFR (Non-Af Amer) > 60 POC Glucose (mg/dL) 157 H Random Glucose 130 H Calcium 8.1 L 09/08/16 09/08/16 09/08/16 05:00 05:30 11:18 WBC 8.8 RBC 2.80 L Hgb 7.8 L Hct 24.2 L MCV 86.2 MCH 28.0 MCHC 32.4 L RDW 15.2 H Plt Count 295 Sodium Potassium Chloride Carbon Dioxide Anion Gap BUN Creatinine Est GFR ( Amer) Est GFR (Non-Af Amer) POC Glucose (mg/dL) 145 H 167 H Random Glucose Calcium 09/08/16 09/08/16 15:13 16:05 WBC 8.7 RBC 3.30 L Hgb 9.6 L Hct 28.7 L MCV 86.8 MCH 29.2 MCHC 33.6 RDW 15.2 H Plt Count 290 Sodium Potassium Chloride Carbon Dioxide Anion Gap BUN Creatinine Est GFR ( Amer) Est GFR (Non-Af Amer) POC Glucose (mg/dL) 140 H Random Glucose Calcium Fingerstick Blood Sugar Results: 140 Critical Care Progress Note - Nutrition Nutrition: Nutrition Category Date Time Status NPO Diet [DIET] Diets 09/07/16 Dinner Active Assessment/Plan (1) Chronic duodenal ulcer with bleeding Current Visit: Yes Status: Acute Comment: - Acute upper GI bleed most likely PUD/Bleeding dueodenal ulcer R/O malignancy - Anemia sec to acute Blood loss - Nasogastric tube - Two large bore peripheral catheters - Suplemental O2 - NPO - Volume resuscitation - Hold antihypertensives - IV Hydration, with SODIUM CHLORIDE 0.9% INJ @ 100 ml/hr - PANTOPRAZOLE drip - Serial CBCs q 8 /HR, RBC transfusions to keep hemoglobin > 9 inview of CAD, Pos Trop and GI bleeding (2) Acute post-hemorrhagic anemia Current Visit: Yes Status: Acute Comment: - Received one unit Packed RBC - Active type and screen sent today - Consented for blood obtained (3) Atrial fibrillation with rapid ventricular response Current Visit: Yes Status: Chronic Comment: hold all anticoagulations and antiplatelets agnets (4) Elevated troponin Current Visit: Yes Status: Acute Comment: Recent Cardiac cath, normal coronories (5) HLD (hyperlipidemia) Current Visit: No Status: Chronic Comment: Statins on hold till patinet can take PO
--- NOTE | 2016-09-08 18:08 | CP.PCM.PN ---
Subjective - Date & Time of Evaluation Date of Evaluation: 09/08/16 Time of Evaluation: 12:00 - Subjective Subjective: no bleeding overnight Objective - Vital Signs/Intake and Output Vital Signs (last 24 hours): Temp Pulse Resp BP Pulse Ox 98.2 F 62 24 145/105 H 96 09/08/16 16:00 09/08/16 16:25 09/08/16 16:00 09/08/16 16:25 09/08/16 16:00 Intake and Output: 09/08/16 09/08/16 06:59 18:59 Intake Total 1420 650 Output Total 700 150 Balance 720 500 - Medications Medications: Current Medications Clonidine HCl (Catapres) 0.3 mg PO Q8 [facility] Last Admin: 09/08/16 16:25 Dose: 0.3 mg Diltiazem HCl (Cardizem Cd) 300 mg PO DAILY [facility] Last Admin: 09/08/16 08:57 Dose: 300 mg Sodium Chloride (Sodium Chloride 0.9%) 1,000 mls @ 100 mls/hr IV .Q10H [facility] Last Admin: 09/08/16 14:34 Dose: 100 mls/hr Pantoprazole Sodium 40 mg/ (Sodium Chloride) 100 mls @ 20 mls/hr IVPB Q5H [facility] PRN Reason: 8 MG/HR Last Admin: 09/08/16 16:26 Dose: 20 mls/hr Insulin Human Lispro (Humalog) 0 units SC ACHS [facility] PRN Reason: Protocol Last Admin: 09/08/16 16:27 Dose: Not Given Lisinopril (Zestril) 10 mg PO DAILY [facility] Last Admin: 09/08/16 08:58 Dose: 10 mg Metoprolol Tartrate (Lopressor) 100 mg PO Q12 [facility] Last Admin: 09/08/16 08:58 Dose: 100 mg Sucralfate (Carafate Oral Susp) 1 gm PO QID [facility] Last Admin: 09/08/16 14:32 Dose: 1 gm - Labs Labs: 09/08/16 15:13 09/08/16 04:45 - GI/Abdominal Exam GI & Abdominal Exam: Soft, Normal Bowel Sounds Assessment and Plan - Assessment and Plan (Free Text) Assessment: 75 yo male with duodenal ulcer, UGIB monitored setting iv PPI 24 hr more can start clears in AM IR for angio if active re-bleed
[2016-09-09] MEDS: Sodium Chloride 0.9% 1,000 ML IV SCH ×3 (00:11→20:14)
[2016-09-09] MEDS: Pantoprazole 40 MG in Sodium Chloride 0.9% 100 ML IVPB SCH ×4 (03:45→15:01)
[2016-09-09 05:30] LABS: HEMATOCRIT 29.5 % (35.0-51.0); MEAN CELL VOLUME 87.8 fl (80.0-94.0); MEAN CORPUSCULAR HEMOGLOBIN 28.9 pg (27.0-31.0); MEAN CORPUSCULAR HGB CONC 32.9 g/dL (33.0-37.0); WHITE BLOOD COUNT 9.4 K/uL (4.8-10.8)
[2016-09-09 05:39] LABS: BLOOD UREA NITROGEN 19 mg/dl (9-20); CALCIUM 8.1 mg/dL (8.4-10.2); CARBON DIOXIDE 25 mmol/L (22-30); CHLORIDE 109 mmol/L (98-107); GFR AFRICAN-AMERICAN > 60; GLUCOSE,RANDOM 114 mg/dL (75-110); POTASSIUM 3.9 MMOL/L (3.6-5.0); SODIUM 142 mmol/l (132-148)
[2016-09-09] MEDS: Insulin Lispro (humaLOG) 100 Units/ml Inj SC SCH ×4 (06:31→22:29)
[2016-09-09] MEDS: Sucralfate 1 gm/10 ml Oral Susp UD PO SCH ×5 (08:32→21:46)
--- NOTE | 2016-09-09 09:09 | CP.PCM.PN ---
<Edmar Robin - Last Filed: 09/09/16 09:36> Subjective - Date & Time of Evaluation Date of Evaluation: 09/09/16 Time of Evaluation: 08:58 - Subjective Subjective: 75 YO M w/ PMH of HTN, HLD, A-fib, DM2, CHF and perforated peptic ulcer which was transferred to the ICU do to a bleeding duodenal ulcer is seen at bedside and appears to be doing well. He denies any overnight events. He received 2 units of blood yesterday and his Hb has raised from 7.8 to 9.7, and seems stable. Denies any palpitations, chest pain or dizziness. Patient has not had any bowl movement since his admission into ICU, urine is normal in color. He has been NPO, possibly will transition him to clear liquids today. Objective - Vital Signs/Intake and Output Vital Signs (last 24 hours): Temp Pulse Resp BP Pulse Ox 98.3 F 105 H 24 112/93 H 99 09/09/16 07:47 09/09/16 08:35 09/09/16 08:00 09/09/16 08:35 09/09/16 08:00 Intake and Output: 09/09/16 09/09/16 06:59 18:59 Intake Total 1410 240 Output Total 750 600 Balance 660 -360 - Medications Medications: Current Medications Clonidine HCl (Catapres) 0.3 mg PO Q8 [facility] Last Admin: 09/09/16 00:09 Dose: 0.3 mg Diltiazem HCl (Cardizem Cd) 300 mg PO DAILY [facility] Last Admin: 09/08/16 08:57 Dose: 300 mg Sodium Chloride (Sodium Chloride 0.9%) 1,000 mls @ 100 mls/hr IV .Q10H [facility] Last Admin: 09/09/16 00:11 Dose: 100 mls/hr Pantoprazole Sodium 40 mg/ (Sodium Chloride) 100 mls @ 20 mls/hr IVPB Q5H [facility] PRN Reason: 8 MG/HR Last Admin: 09/09/16 08:36 Dose: 20 mls/hr Insulin Human Lispro (Humalog) 0 units SC ACHS [facility] PRN Reason: Protocol Last Admin: 09/09/16 06:31 Dose: Not Given Lisinopril (Zestril) 10 mg PO DAILY [facility] Last Admin: 09/08/16 08:58 Dose: 10 mg Metoprolol Tartrate (Lopressor) 100 mg PO Q12 [facility] Last Admin: 09/09/16 08:35 Dose: 100 mg Sucralfate (Carafate Oral Susp) 1 gm PO QID [facility] Last Admin: 09/09/16 08:33 Dose: 1 gm - Labs Labs: 09/09/16 04:45 09/09/16 04:45 - Constitutional Appears: No Acute Distress - Head Exam Head Exam: NORMAL INSPECTION, NORMOCEPHALIC - Eye Exam Eye Exam: Normal appearance Pupil Exam: NORMAL ACCOMODATION - Respiratory Exam Respiratory Exam: Clear to Ausculation Bilateral. absent: Wheezes - Cardiovascular Exam Cardiovascular Exam: Irregular Rhythm, +S1, +S2 - GI/Abdominal Exam GI & Abdominal Exam: Soft, Normal Bowel Sounds Additional comments: Slight right upper quadrant tenderness - Neurological Exam Neurological Exam: Alert, Awake, Oriented x3 - Skin Skin Exam: Normal Color, Warm Assessment and Plan - Assessment and Plan (Free Text) Assessment: Acute Blood Loss Anemia secondary to Multiple Bleeding Duodenal Ulcers, Gastric Ulcers Continue monitoring in ICU HD stable Total 3 units PRBC given: H/H after first transfusion 8.5/26.3, 8.0/24.9, 7.8 /24.2 then 2 additional units given, current Hgb 9.7 EGD showed gastritis, biopsied. Gastric ulcer with clean base, biopsied. Multiple duodenal ulcers oozing blood, biopsied. Repeat Upper Endoscopy in [address] Maya GI Consult appreciated and followed Cont Protonix Drip currently and possible transition to PO PPI today. Cont Carafate Currently NPO, PO antihypertensives OK. Possible transition to clear liquids today PT eval and treat Afib with RVR controlled continue cardizem and lopressor Cardiology Dr. Pereira following hold all AC Hypertension controlled continue Lopressor continue clonidine 0.3 Q8h continue Lisinopril Hyperlipidemia, Hypertriglyceridemia HOLD PO atorvastatin for home Simvastatin HOLD PO fenofibrate DM 2 Currently NPO accuchecks Hold PO antihyperglycemics sliding scale coverage VTE ppx <Karlee Mooney - Last Filed: 09/09/16 16:40> Objective - Vital Signs/Intake and Output Vital Signs (last 24 hours): Temp Pulse Resp BP Pulse Ox 98.4 F 61 15 143/66 97 09/09/16 15:50 09/09/16 15:50 09/09/16 15:50 09/09/16 15:50 09/09/16 15:50 Intake and Output: 09/09/16 09/09/16 06:59 18:59 Intake Total 1410 960 Output Total 750 1400 Balance 660 -440 - Medications Medications: Current Medications Clonidine HCl (Catapres) 0.3 mg PO Q8 [facility] Last Admin: 09/09/16 11:20 Dose: 0.3 mg Diltiazem HCl (Cardizem Cd) 300 mg PO DAILY [facility] Last Admin: 09/09/16 09:38 Dose: 300 mg Sodium Chloride (Sodium Chloride 0.9%) 1,000 mls @ 100 mls/hr IV .Q10H [facility] Last Admin: 09/09/16 10:21 Dose: 100 mls/hr Insulin Human Lispro (Humalog) 0 units SC ACHS [facility] PRN Reason: Protocol Last Admin: 09/09/16 11:21 Dose: Not Given Lisinopril (Zestril) 10 mg PO DAILY [facility] Last Admin: 09/09/16 09:44 Dose: 10 mg Metoprolol Tartrate (Lopressor) 100 mg PO Q12 [facility] Last Admin: 09/09/16 08:35 Dose: 100 mg Pantoprazole Sodium (Protonix Ec Tab) 40 mg PO BID [facility] Sucralfate (Carafate Oral Susp) 1 gm PO QID [facility] Last Admin: 09/09/16 12:34 Dose: 1 gm - Labs Labs: 09/09/16 04:45 09/09/16 04:45 Attending/Attestation - Attestation I have personally seen and examined this patient.: Yes I have fully participated in the care of the patient.: Yes I have reviewed all pertinent clinical information, including history, physical exam and plan: Yes
[2016-09-09] MEDS: diltiaZEM 300 mg/24 Hours CD Cap PO SCH (09:38)
--- NOTE | 2016-09-09 12:04 | CP.PCM.PN ---
Subjective - Date & Time of Evaluation Date of Evaluation: 09/09/16 Time of Evaluation: 08:30 - Subjective Subjective: NO CHEST PAIN, ABDOMINAL PAIN OR SOB Objective - Vital Signs/Intake and Output Vital Signs (last 24 hours): Temp Pulse Resp BP Pulse Ox 98.2 F 85 24 154/78 H 97 09/09/16 11:58 09/09/16 11:58 09/09/16 11:58 09/09/16 11:58 09/09/16 11:58 Intake and Output: 09/09/16 09/09/16 06:59 18:59 Intake Total 1410 480 Output Total 750 900 Balance 660 -420 - Medications Medications: Current Medications Clonidine HCl (Catapres) 0.3 mg PO Q8 [facility] Last Admin: 09/09/16 11:20 Dose: 0.3 mg Diltiazem HCl (Cardizem Cd) 300 mg PO DAILY [facility] Last Admin: 09/09/16 09:38 Dose: 300 mg Sodium Chloride (Sodium Chloride 0.9%) 1,000 mls @ 100 mls/hr IV .Q10H [facility] Last Admin: 09/09/16 10:21 Dose: 100 mls/hr Pantoprazole Sodium 40 mg/ (Sodium Chloride) 100 mls @ 20 mls/hr IVPB Q5H [facility] PRN Reason: 8 MG/HR Last Admin: 09/09/16 08:36 Dose: 20 mls/hr Insulin Human Lispro (Humalog) 0 units SC ACHS [facility] PRN Reason: Protocol Last Admin: 09/09/16 11:21 Dose: Not Given Lisinopril (Zestril) 10 mg PO DAILY [facility] Last Admin: 09/09/16 09:44 Dose: 10 mg Metoprolol Tartrate (Lopressor) 100 mg PO Q12 [facility] Last Admin: 09/09/16 08:35 Dose: 100 mg Sucralfate (Carafate Oral Susp) 1 gm PO QID [facility] Last Admin: 09/09/16 08:33 Dose: 1 gm - Labs Labs: 09/09/16 04:45 09/09/16 04:45 - Respiratory Exam Respiratory Exam: Clear to Ausculation Bilateral - Cardiovascular Exam Cardiovascular Exam: Irregular Rhythm, +S1, +S2 - Extremities Exam Extremities Exam: Normal Inspection - Additional Findings Additional findings: H/H 9.7/29 AFTER 3 U RBCS Assessment and Plan - Assessment and Plan (Free Text) Assessment: CHRONIC ATRIAL FIBRILLATION HYPERTENSION PUD WITH RECENT GI BLEED Plan: CONTINUE METOPROLOL, CLONIDINE, CARDIZEM AND LISINOPRIL OK TO TRANSFER OUT OF ICU
--- NOTE | 2016-09-09 12:12 | CP.PCM.PN ---
Objective - Vital Signs/Intake and Output Vital Signs (last 24 hours): Temp Pulse Resp BP Pulse Ox 98.2 F 85 24 154/78 H 97 09/09/16 11:58 09/09/16 11:58 09/09/16 11:58 09/09/16 11:58 09/09/16 11:58 Intake and Output: 09/09/16 09/09/16 06:59 18:59 Intake Total 1410 480 Output Total 750 900 Balance 660 -420 - Medications Medications: Current Medications Clonidine HCl (Catapres) 0.3 mg PO Q8 [facility] Last Admin: 09/09/16 11:20 Dose: 0.3 mg Diltiazem HCl (Cardizem Cd) 300 mg PO DAILY [facility] Last Admin: 09/09/16 09:38 Dose: 300 mg Sodium Chloride (Sodium Chloride 0.9%) 1,000 mls @ 100 mls/hr IV .Q10H [facility] Last Admin: 09/09/16 10:21 Dose: 100 mls/hr Pantoprazole Sodium 40 mg/ (Sodium Chloride) 100 mls @ 20 mls/hr IVPB Q5H [facility] PRN Reason: 8 MG/HR Last Admin: 09/09/16 08:36 Dose: 20 mls/hr Insulin Human Lispro (Humalog) 0 units SC ACHS [facility] PRN Reason: Protocol Last Admin: 09/09/16 11:21 Dose: Not Given Lisinopril (Zestril) 10 mg PO DAILY [facility] Last Admin: 09/09/16 09:44 Dose: 10 mg Metoprolol Tartrate (Lopressor) 100 mg PO Q12 [facility] Last Admin: 09/09/16 08:35 Dose: 100 mg Sucralfate (Carafate Oral Susp) 1 gm PO QID [facility] Last Admin: 09/09/16 08:33 Dose: 1 gm - Labs Labs: 09/09/16 04:45 09/09/16 04:45
[2016-09-09] MEDS: Pantoprazole 40 mg EC Tab PO SCH (17:00)
--- NOTE | 2016-09-09 18:43 | CP.CCUPN ---
CCU Subjective - Physician Review Subjective (Free Text): Awake and alert, denies any abdominal discomfort, no n/v, tolerated liquid diet. Telemetry shows pauses in HR at 60-75 with 2-3 sec pauses. Afternoon due- cardiac medications held for now to avoid further prolongation of pauses. CCU Objective - Vital Signs / Intake & Output Vital Signs (Last 4 hours): Vital Signs Temp Pulse Resp BP Pulse Ox 09/09/16 18:00 70 21 148/75 100 09/09/16 15:50 98.4 F 61 15 143/66 97 Intake and Output (Last 8hrs): Intake & Output 09/09/16 09/09/16 09/09/16 06:59 14:59 22:59 Intake Total 1020 960 620 Output Total 600 1400 300 Balance 420 -440 320 Intake: IV 800 960 400 Intake, Piggyback 160 Oral 60 220 Output: Urine 600 1400 Urine, Voided 600 1400 Urine/Stool Mix 300 Other: # Voids Urine, Voided 1 2 1 # Bowel Movements 1 - Physical Exam Head: Positive for: Atraumatic, Normocephalic Pupils: Positive for: PERRL. Negative for: Sluggish, Non-Reactive Extroacular Muscles: Positive for: EOMI Conjunctiva: Positive for: Normal. Negative for: Injected, Icteric Mouth: Positive for: Moist Mucous Membranes Neck: Positive for: Normal Range of Motion, Trachea Midline. Negative for: Meningeal Signs, MIDLINE TENDERNESS, Paraspinal Tenderness, JVD, Lymphadenopathy , Bruit, Other Respiratory/Chest: Positive for: Clear to Auscultation, Good Air Exchange. Negative for: Respiratory Distress Cardiovascular: Positive for: Irregular Rhythm, Peripheal Pulses Present. Negative for: Tachycardic, Bradycardic Abdomen: Positive for: Tenderness, Distention, Normal Bowel Sounds. Negative for: Peritoneal Signs Neurological: Positive for: GCS=15, CN II-XII Intact, Speech Normal, Motor Func Grossly Intact, Normal Sensory Function Psychiatric: Positive for: Alert, Oriented x 3 - Medications Active Medications: Active Medications Generic Name Dose Route Start Last Admin Trade Name Freq PRN Reason Stop Dose Admin Clonidine HCl 0.3 mg 09/08/16 01:00 09/09/16 11:20 Catapres PO 0.3 mg Q8 [facility] Administration Diltiazem HCl 300 mg 09/08/16 09:00 09/09/16 09:38 Cardizem Cd PO 300 mg DAILY [facility] Administration Sodium Chloride 1,000 mls @ 100 mls/hr 09/07/16 17:45 09/09/16 10:21 Sodium Chloride 0.9% IV 100 mls/hr .Q10H [facility] Administration Insulin Human Lispro 0 units 09/07/16 22:00 09/09/16 16:59 Humalog SC 3 units ACHS [facility] Administration Protocol Lisinopril 10 mg 09/08/16 09:00 09/09/16 09:44 Zestril PO 10 mg DAILY [facility] Administration Metoprolol Tartrate 100 mg 09/07/16 21:00 09/09/16 08:35 Lopressor PO 100 mg Q12 [facility] Administration Pantoprazole Sodium 40 mg 09/09/16 17:00 09/09/16 17:00 Protonix Ec Tab PO 40 mg BID [facility] Administration Sucralfate 1 gm 09/07/16 22:00 09/09/16 16:59 Carafate Oral Susp PO 1 gm QID [facility] Administration - Patient Studies Lab Studies: Microbiology Studies 09/07/16 21:13 MRSA Culture (Admit) - Final Nose MRSA NOT DETECTED Lab Studies 09/09/16 09/09/16 09/09/16 Range/Units 15:58 10:48 05:47 WBC (4.8-10.8) K/uL RBC (4.40-5.90) Mil/uL Hgb (12.0-18.0) g/dL Hct (35.0-51.0) % MCV (80.0-94.0) fl MCH (27.0-31.0) pg MCHC (33.0-37.0) g/dL RDW (11.5-14.5) % Plt Count (130-400) K/uL Sodium (132-148) mmol/l Potassium (3.6-5.0) MMOL/L Chloride (98-107) mmol/L Carbon Dioxide (22-30) mmol/L Anion Gap (10-20) BUN (9-20) mg/dl Creatinine (0.8-1.5) mg/dL Est GFR ( Amer) Est GFR (Non-Af Amer) POC Glucose (mg/dL) 207 H 110 123 H (65-110) mg/dL Random Glucose (75-110) mg/dL Calcium (8.4-10.2) mg/dL 09/09/16 09/09/16 09/08/16 Range/Units 04:45 04:45 22:03 WBC 9.4 (4.8-10.8) K/uL RBC 3.36 L (4.40-5.90) Mil/uL Hgb 9.7 L (12.0-18.0) g/dL Hct 29.5 L (35.0-51.0) % MCV 87.8 (80.0-94.0) fl MCH 28.9 (27.0-31.0) pg MCHC 32.9 L (33.0-37.0) g/dL RDW 15.0 H (11.5-14.5) % Plt Count 318 (130-400) K/uL Sodium 142 (132-148) mmol/l Potassium 3.9 (3.6-5.0) MMOL/L Chloride 109 H (98-107) mmol/L Carbon Dioxide 25 (22-30) mmol/L Anion Gap 12 (10-20) BUN 19 (9-20) mg/dl Creatinine 1.0 (0.8-1.5) mg/dL Est GFR ( Amer) > 60 Est GFR (Non-Af Amer) > 60 POC Glucose (mg/dL) 127 H (65-110) mg/dL Random Glucose 114 H (75-110) mg/dL Calcium 8.1 L (8.4-10.2) mg/dL Laboratory Results - last 24 hr 09/08/16 09/09/16 09/09/16 22:03 04:45 04:45 WBC 9.4 RBC 3.36 L Hgb 9.7 L Hct 29.5 L MCV 87.8 MCH 28.9 MCHC 32.9 L RDW 15.0 H Plt Count 318 Sodium 142 Potassium 3.9 Chloride 109 H Carbon Dioxide 25 Anion Gap 12 BUN 19 Creatinine 1.0 Est GFR ( Amer) > 60 Est GFR (Non-Af Amer) > 60 POC Glucose (mg/dL) 127 H Random Glucose 114 H Calcium 8.1 L 09/09/16 09/09/16 09/09/16 05:47 10:48 15:58 WBC RBC Hgb Hct MCV MCH MCHC RDW Plt Count Sodium Potassium Chloride Carbon Dioxide Anion Gap BUN Creatinine Est GFR ( Amer) Est GFR (Non-Af Amer) POC Glucose (mg/dL) 123 H 110 207 H Random Glucose Calcium Fingerstick Blood Sugar Results: 207 Review of Systems - Review of Systems All systems: reviewed and no additional remarkable complaints except - Cardiovascular Cardiovascular: Irregular Heart Rhythm, Slow Heart Rate. absent: Chest Pain, Diaphoresis, Edema - Respiratory Respiratory: absent: Dyspnea, Dyspnea on Exertion - Gastrointestinal Gastrointestinal: absent: Abdominal Pain, Nausea, Vomiting Critical Care Progress Note - Extremities/Vascular Does the Patient have a Central Venous Catheter?: No Does the Patient need a Central Venous Catheter?: No Does the Patient have a Dobbins Catheter?: No Does the Patient need a Dobbins Catheter?: No - Prophylaxis GI Prophylaxis GI: PPI - Prophylaxis DVT Prophylaxis DVT: SCDs - Nutrition Nutrition: Nutrition Category Date Time Status Liquid Diet [DIET] Diets 09/09/16 Lunch Active Assessment/Plan - Assessment and Plan (Free Text) Assessment: Chronic A Fib- bradycardic rate with significant 2-3 sec pauses Acute GI Bleed Acute Anemia 2 DU Duodenal Ulcer with s/p EGD Accelerated HTN Plan: - Placed cardiac meds on hold for now ( Cardizem, Lopressor, Catapress) all of which can cause more bradycardia. Discuss with Cardiology on re-starting meds at lower dose range or choosing alternative meds for control of rate and BP. Avoid long-acting (CD, ER, LA SR-type) medications for now while hospitalized. - Tolerated clear liquids, advance as tolerated as per GI. Protonix drip for additional 24H as per yesterday's GI note. - Acceptable HGB levels post RBCs with no new evidence of re-bleed so far.
--- NOTE | 2016-09-09 21:40 | CP.PCM.PN ---
Subjective - Date & Time of Evaluation Date of Evaluation: 09/09/16 Time of Evaluation: 15:30 - Subjective Subjective: no further bleeding Objective - Vital Signs/Intake and Output Vital Signs (last 24 hours): Temp Pulse Resp BP Pulse Ox 97.9 F 46 L 18 148/75 100 09/09/16 19:32 09/09/16 19:32 09/09/16 19:32 09/09/16 18:00 09/09/16 19:32 Intake and Output: 09/09/16 09/10/16 18:59 06:59 Intake Total 1580 100 Output Total 1700 Balance -120 100 - Medications Medications: Current Medications Clonidine HCl (Catapres) 0.3 mg PO Q8 [facility] Last Admin: 09/09/16 11:20 Dose: 0.3 mg Diltiazem HCl (Cardizem Cd) 300 mg PO DAILY [facility] Last Admin: 09/09/16 09:38 Dose: 300 mg Sodium Chloride (Sodium Chloride 0.9%) 1,000 mls @ 100 mls/hr IV .Q10H [facility] Last Admin: 09/09/16 20:14 Dose: 100 mls/hr Insulin Human Lispro (Humalog) 0 units SC ACHS [facility] PRN Reason: Protocol Last Admin: 09/09/16 16:59 Dose: 3 units Lisinopril (Zestril) 10 mg PO DAILY [facility] Last Admin: 09/09/16 09:44 Dose: 10 mg Metoprolol Tartrate (Lopressor) 100 mg PO Q12 [facility] Last Admin: 09/09/16 08:35 Dose: 100 mg Pantoprazole Sodium (Protonix Ec Tab) 40 mg PO BID [facility] Last Admin: 09/09/16 17:00 Dose: 40 mg Sucralfate (Carafate Oral Susp) 1 gm PO QID [facility] Last Admin: 09/09/16 16:59 Dose: 1 gm - Labs Labs: 09/09/16 04:45 09/09/16 04:45 - GI/Abdominal Exam GI & Abdominal Exam: Soft, Normal Bowel Sounds Assessment and Plan - Assessment and Plan (Free Text) Assessment: 75 yo male with UGI secondary to DU hgb stable dc PPI gtt PPI po q12 carafate elixir 1 g QID await pathology advance diet as tolerated repeat egd in 1-2 weeks
[2016-09-10 05:07] LABS: HEMATOCRIT 30.3 % (35.0-51.0); MEAN CELL VOLUME 87.4 fl (80.0-94.0); MEAN CORPUSCULAR HEMOGLOBIN 28.6 pg (27.0-31.0); MEAN CORPUSCULAR HGB CONC 32.8 g/dL (33.0-37.0); RED CELL DISTRIBUTION WIDTH 14.9 % (11.5-14.5); WHITE BLOOD COUNT 9.8 K/uL (4.8-10.8)
[2016-09-10 05:14] LABS: BLOOD UREA NITROGEN 12 mg/dl (9-20); CALCIUM 8.1 mg/dL (8.4-10.2); CARBON DIOXIDE 28 mmol/L (22-30); CHLORIDE 106 mmol/L (98-107); GFR AFRICAN-AMERICAN > 60; GLUCOSE,RANDOM 111 mg/dL (75-110); POTASSIUM 4.2 MMOL/L (3.6-5.0); SODIUM 140 mmol/l (132-148)
[2016-09-10] MEDS: Sodium Chloride 0.9% 1,000 ML IV SCH ×2 (06:12→17:36)
[2016-09-10] MEDS: Insulin Lispro (humaLOG) 100 Units/ml Inj SC SCH ×4 (06:44→21:45)
--- NOTE | 2016-09-10 07:50 | CP.CCUPN ---
CCU Subjective - Physician Review Subjective (Free Text): Awake and alert, denies any abdominal discomfort, no n/v, tolerated liquid diet yesterday. Vasoactive meds held yesterday which included Clonidine and Lopressor afternoon doses. Patient had already rec'd Cardizem CD 300mg in AM before significant pauses were noted on telemetry. No evidence of any acute or recurrent bleeding. CCU Objective - Vital Signs / Intake & Output Vital Signs (Last 4 hours): Vital Signs Temp Pulse Resp BP Pulse Ox 09/10/16 07:45 98.3 F 112 H 23 147/97 H 100 09/10/16 06:00 124 H 15 157/87 H 100 09/10/16 04:00 98.4 F 97 H 17 157/90 H 100 Intake and Output (Last 8hrs): Intake & Output 09/09/16 09/10/16 09/10/16 22:59 06:59 14:59 Intake Total 1020 900 Output Total 300 1200 Balance 720 -300 Intake: IV 700 800 Oral 320 50 Tube Feeding 50 Output: Urine 1200 Urine, Voided 1200 Urine/Stool Mix 300 Other: # Voids Urine, Voided 1 1 # Bowel Movements 1 - Physical Exam Head: Positive for: Normocephalic Pupils: Positive for: PERRL. Negative for: Sluggish, Non-Reactive Extroacular Muscles: Positive for: EOMI Conjunctiva: Positive for: Normal. Negative for: Injected, Icteric Mouth: Positive for: Moist Mucous Membranes Neck: Positive for: Normal Range of Motion, Trachea Midline. Negative for: Meningeal Signs, MIDLINE TENDERNESS, Paraspinal Tenderness, JVD, Lymphadenopathy , Bruit, Other Respiratory/Chest: Positive for: Clear to Auscultation, Good Air Exchange. Negative for: Respiratory Distress Cardiovascular: Positive for: Irregular Rhythm, Peripheal Pulses Present. Negative for: Murmurs Abdomen: Positive for: Tenderness, Distention, Normal Bowel Sounds. Negative for: Peritoneal Signs Lower Extremity: Positive for: Normal Inspection. Negative for: CALF TENDERNESS Neurological: Positive for: GCS=15, CN II-XII Intact, Speech Normal, Motor Func Grossly Intact, Normal Sensory Function Skin: Positive for: Warm. Negative for: Rashes Psychiatric: Positive for: Alert, Oriented x 3 - Medications Active Medications: Active Medications Generic Name Dose Route Start Last Admin Trade Name Freq PRN Reason Stop Dose Admin Clonidine HCl 0.1 mg 09/10/16 07:44 Catapres PO Q8 [facility] Diltiazem HCl 90 mg 09/10/16 09:00 Cardizem PO Q8 [facility] Sodium Chloride 1,000 mls @ 100 mls/hr 09/07/16 17:45 09/10/16 06:12 Sodium Chloride 0.9% IV 100 mls/hr .Q10H [facility] Administration Insulin Human Lispro 0 units 09/07/16 22:00 09/10/16 06:44 Humalog SC Not Given ACHS [facility] Protocol Lisinopril 10 mg 09/08/16 09:00 09/09/16 09:44 Zestril PO 10 mg DAILY [facility] Administration Metoprolol Tartrate 100 mg 09/07/16 21:00 09/09/16 08:35 Lopressor PO 100 mg Q12 [facility] Administration Pantoprazole Sodium 40 mg 09/09/16 17:00 09/09/16 17:00 Protonix Ec Tab PO 40 mg BID [facility] Administration Sucralfate 1 gm 09/07/16 22:00 09/09/16 21:46 Carafate Oral Susp PO 1 gm QID [facility] Administration - Patient Studies Lab Studies: Microbiology Studies 09/07/16 21:13 MRSA Culture (Admit) - Final Nose MRSA NOT DETECTED Lab Studies 09/10/16 09/10/16 09/10/16 Range/Units 05:32 04:30 04:30 WBC 9.8 (4.8-10.8) K/uL RBC 3.47 L (4.40-5.90) Mil/uL Hgb 9.9 L (12.0-18.0) g/dL Hct 30.3 L (35.0-51.0) % MCV 87.4 (80.0-94.0) fl MCH 28.6 (27.0-31.0) pg MCHC 32.8 L (33.0-37.0) g/dL RDW 14.9 H (11.5-14.5) % Plt Count 375 (130-400) K/uL Sodium 140 (132-148) mmol/l Potassium 4.2 (3.6-5.0) MMOL/L Chloride 106 (98-107) mmol/L Carbon Dioxide 28 (22-30) mmol/L Anion Gap 11 (10-20) BUN 12 (9-20) mg/dl Creatinine 1.0 (0.8-1.5) mg/dL Est GFR ( Amer) > 60 Est GFR (Non-Af Amer) > 60 POC Glucose (mg/dL) 121 H (65-110) mg/dL Random Glucose 111 H (75-110) mg/dL Calcium 8.1 L (8.4-10.2) mg/dL 09/09/16 09/09/16 09/09/16 Range/Units 21:32 15:58 10:48 WBC (4.8-10.8) K/uL RBC (4.40-5.90) Mil/uL Hgb (12.0-18.0) g/dL Hct (35.0-51.0) % MCV (80.0-94.0) fl MCH (27.0-31.0) pg MCHC (33.0-37.0) g/dL RDW (11.5-14.5) % Plt Count (130-400) K/uL Sodium (132-148) mmol/l Potassium (3.6-5.0) MMOL/L Chloride (98-107) mmol/L Carbon Dioxide (22-30) mmol/L Anion Gap (10-20) BUN (9-20) mg/dl Creatinine (0.8-1.5) mg/dL Est GFR ( Amer) Est GFR (Non-Af Amer) POC Glucose (mg/dL) 109 207 H 110 (65-110) mg/dL Random Glucose (75-110) mg/dL Calcium (8.4-10.2) mg/dL Laboratory Results - last 24 hr 09/09/16 09/09/16 09/09/16 10:48 15:58 21:32 WBC RBC Hgb Hct MCV MCH MCHC RDW Plt Count Sodium Potassium Chloride Carbon Dioxide Anion Gap BUN Creatinine Est GFR ( Amer) Est GFR (Non-Af Amer) POC Glucose (mg/dL) 110 207 H 109 Random Glucose Calcium 09/10/16 09/10/16 09/10/16 04:30 04:30 05:32 WBC 9.8 RBC 3.47 L Hgb 9.9 L Hct 30.3 L MCV 87.4 MCH 28.6 MCHC 32.8 L RDW 14.9 H Plt Count 375 Sodium 140 Potassium 4.2 Chloride 106 Carbon Dioxide 28 Anion Gap 11 BUN 12 Creatinine 1.0 Est GFR ( Amer) > 60 Est GFR (Non-Af Amer) > 60 POC Glucose (mg/dL) 121 H Random Glucose 111 H Calcium 8.1 L Fingerstick Blood Sugar Results: 121 Critical Care Progress Note - Extremities/Vascular Does the Patient have a Central Venous Catheter?: No Does the Patient need a Central Venous Catheter?: No Does the Patient have a Dobbins Catheter?: No Does the Patient need a Dobbins Catheter?: No - Prophylaxis GI Prophylaxis GI: PPI - Prophylaxis DVT Prophylaxis DVT: SCDs - Nutrition Nutrition: Nutrition Category Date Time Status Heart Healthy Diet [DIET] Diets 09/10/16 Lunch Active Liquid Diet [DIET] Diets 09/09/16 Breakfast Active Assessment/Plan - Assessment and Plan (Free Text) Assessment: Chronic A Fib- bradycardic rate with significant 2-3 sec pauses s/p Acute GI Bleed Acute Anemia 2 DU Duodenal Ulcer with s/p EGD Accelerated HTN Plan: - Placed cardiac meds on hold yesterday ( Cardizem, Lopressor, Catapress): all of which can cause more bradycardia. Discuss with Cardiology on re- starting meds at lower dose range or choosing alternative meds for control of rate and BP. Avoid long-acting (CD, ER, LA SR-type) medications for now while hospitalized. Cardizem resumed today at 90mg Q8H dosing and Clonidine reduced to 0.1mg Q8H ( in case it needs to be stopped and dosage reduced to this level to avoid any rebound hypertension effects). - Tolerated clear liquids, advance as tolerated as per GI. Protonix changed to Q12H dosing and Carafate added to regimen. - Acceptable HGB levels noted post RBCs with no new evidence of re-bleed so far.
[2016-09-10] MEDS: Sucralfate 1 gm/10 ml Oral Susp UD PO SCH ×4 (08:18→21:46)
[2016-09-10] MEDS: Pantoprazole 40 mg EC Tab PO SCH ×2 (08:23→16:07)
--- NOTE | 2016-09-10 10:25 | CP.PCM.PN ---
Subjective - Date & Time of Evaluation Date of Evaluation: 09/10/16 Time of Evaluation: 08:30 - Subjective Subjective: NO CHEST PAIN, ABDOMINAL PAIN OR SOB NO PALPITATIONS Objective - Vital Signs/Intake and Output Vital Signs (last 24 hours): Temp Pulse Resp BP Pulse Ox 98.3 F 125 H 15 142/104 H 99 09/10/16 07:45 09/10/16 08:23 09/10/16 08:00 09/10/16 08:23 09/10/16 08:00 Intake and Output: 09/10/16 09/10/16 06:59 18:59 Intake Total 1300 200 Output Total 1200 600 Balance 100 -400 - Medications Medications: Current Medications Clonidine HCl (Catapres) 0.1 mg PO Q8 [facility] Diltiazem HCl (Cardizem) 90 mg PO Q8 [facility] Last Admin: 09/10/16 08:25 Dose: 90 mg Sodium Chloride (Sodium Chloride 0.9%) 1,000 mls @ 100 mls/hr IV .Q10H [facility] Last Admin: 09/10/16 06:12 Dose: 100 mls/hr Insulin Human Lispro (Humalog) 0 units SC ACHS [facility] PRN Reason: Protocol Last Admin: 09/10/16 06:44 Dose: Not Given Lisinopril (Zestril) 10 mg PO DAILY [facility] Last Admin: 09/10/16 08:23 Dose: 10 mg Metoprolol Tartrate (Lopressor) 100 mg PO Q12 [facility] Last Admin: 09/09/16 08:35 Dose: 100 mg Pantoprazole Sodium (Protonix Ec Tab) 40 mg PO BID [facility] Last Admin: 09/10/16 08:23 Dose: 40 mg Sucralfate (Carafate Oral Susp) 1 gm PO QID [facility] Last Admin: 09/10/16 08:18 Dose: 1 gm - Labs Labs: 09/10/16 04:30 09/10/16 04:30 - Respiratory Exam Respiratory Exam: Clear to Ausculation Bilateral - Cardiovascular Exam Cardiovascular Exam: Tachycardia, Irregular Rhythm, +S1, +S2 - Extremities Exam Extremities Exam: Normal Inspection - Additional Findings Additional findings: PATIENT DISCUSSED WITH DR RIZZO AND NURSING STAFF AND CHART NOTES AND RHYTHM STRIPS REVIEWED THE PATIENT HAD A FEW PAUSES YESTERDAY CLOSE TO 3 SECOND LONG AND A COUPLE OVER 3 SECONDS(BUT LESS THAN 4) LONG SO EVENING DOSES OF METOPROLOL AND CLONIDINE WERE HELD AND TODAY CARDIZEM HAS BEEN CHANGED TO 90 MGS PO Q 8 HRS AND CLONIDINE REDUCED TO 0.1 MGS PO Q 8 HRS 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
--- NOTE | 2016-09-10 14:45 | CP.PCM.PN ---
Subjective - Date & Time of Evaluation Date of Evaluation: 09/10/16 Time of Evaluation: 10:30 - Subjective Subjective: No fever no further melena, sl dark stool this am no vomiting no abd pain HR - episode of amber yesterday - Metoprolol d/c Denies CP, no SOB Objective - Vital Signs/Intake and Output Vital Signs (last 24 hours): Temp Pulse Resp BP Pulse Ox 97.4 F L 97 H 13 146/73 100 09/10/16 12:00 09/10/16 14:00 09/10/16 14:00 09/10/16 14:00 09/10/16 14:00 Intake and Output: 09/10/16 09/10/16 06:59 18:59 Intake Total 1300 1300 Output Total 1200 880 Balance 100 420 - Medications Medications: Current Medications Clonidine HCl (Catapres) 0.1 mg PO Q8 [facility] Last Admin: 09/10/16 10:56 Dose: 0.1 mg Diltiazem HCl (Cardizem) 90 mg PO Q8 [facility] Last Admin: 09/10/16 08:25 Dose: 90 mg Sodium Chloride (Sodium Chloride 0.9%) 1,000 mls @ 100 mls/hr IV .Q10H [facility] Last Admin: 09/10/16 06:12 Dose: 100 mls/hr Insulin Human Lispro (Humalog) 0 units SC ACHS [facility] PRN Reason: Protocol Last Admin: 09/10/16 12:00 Dose: 2 units Lisinopril (Zestril) 10 mg PO DAILY [facility] Last Admin: 09/10/16 08:23 Dose: 10 mg Pantoprazole Sodium (Protonix Ec Tab) 40 mg PO BID [facility] Last Admin: 09/10/16 08:23 Dose: 40 mg Sucralfate (Carafate Oral Susp) 1 gm PO QID [facility] Last Admin: 09/10/16 13:06 Dose: 1 gm - Labs Labs: 09/10/16 04:30 09/10/16 04:30 Assessment and Plan (1) Anemia associated with acute blood loss Status: Acute (2) Duodenal ulcer with hemorrhage Status: Acute (3) Atrial fibrillation with rapid ventricular response Status: Acute (4) DM type 2 (diabetes mellitus, type 2) Status: Chronic (5) HTN (hypertension) Status: Chronic (6) DVT prophylaxis Status: Acute - Assessment and Plan (Free Text) Assessment: 75 y/o gent with hx of HTN, A Fib , Hyperlipidemia, DM, PUD, was in TCU for Rehab when he suddenly developed severe weakness, melena and had A Fib with RVR. he was transferred to ICU . Started on Protonix drip. Transfused 3 units PRBC total. EGD done by Dr Maya showed multiple Duodenal Ulcers with Oozing. (1) Anemia associated with acute blood loss due to GI Bleed Status: Acute monitor H/H stool sl black this am but no gross enema ( prob residual blood in GI tract) H/H stable the past 3 days Transfuse prn Physical therapy (2) Duodenal ulcer with hemorrhage Status: Acute Protonix drip changed to PO 40 mg bid cont Carafate EGD showed multiple duodenal ulcers with oozing tolerated Liquid diet - will change to Soft diet as discussed with Dr Maya transfer pt to Tele (3) Atrial fibrillation with rapid ventricular response Status: Acute HR erratic cont Cardizem PO 90 mg q 8 off Metoprolol as pt HR dropped to 46 cardio consulted- Dr Pereira (4) DM type 2 (diabetes mellitus, type 2) Status: Chronic accucheck with coverage will restart oral hypoglycemics once pt tolerates diet (5) HTN (hypertension) Status: Chronic cont Clonidine, Cardizem and Zestril (6) DVT prophylaxis Status: Acute SCD no anticoag sec to GI bleed
--- NOTE | 2016-09-10 17:10 | CP.PCM.PN ---
Subjective - Date & Time of Evaluation Date of Evaluation: 09/10/16 Time of Evaluation: 10:40 - Subjective Subjective: doing well Objective - Vital Signs/Intake and Output Vital Signs (last 24 hours): Temp Pulse Resp BP Pulse Ox 97.9 F 111 H 24 151/93 H 100 09/10/16 16:00 09/10/16 16:00 09/10/16 16:00 09/10/16 16:00 09/10/16 16:00 Intake and Output: 09/10/16 09/10/16 06:59 18:59 Intake Total 1300 1300 Output Total 1200 880 Balance 100 420 - Medications Medications: Current Medications Clonidine HCl (Catapres) 0.1 mg PO Q8 [facility] Last Admin: 09/10/16 10:56 Dose: 0.1 mg Diltiazem HCl (Cardizem) 90 mg PO Q8 [facility] Last Admin: 09/10/16 16:07 Dose: 90 mg Sodium Chloride (Sodium Chloride 0.9%) 1,000 mls @ 100 mls/hr IV .Q10H [facility] Last Admin: 09/10/16 06:12 Dose: 100 mls/hr Insulin Human Lispro (Humalog) 0 units SC ACHS [facility] PRN Reason: Protocol Last Admin: 09/10/16 12:00 Dose: 2 units Lisinopril (Zestril) 10 mg PO DAILY [facility] Last Admin: 09/10/16 08:23 Dose: 10 mg Pantoprazole Sodium (Protonix Ec Tab) 40 mg PO BID [facility] Last Admin: 09/10/16 16:07 Dose: 40 mg Sucralfate (Carafate Oral Susp) 1 gm PO QID [facility] Last Admin: 09/10/16 16:07 Dose: 1 gm - Labs Labs: 09/10/16 04:30 09/10/16 04:30 - GI/Abdominal Exam GI & Abdominal Exam: Soft, Normal Bowel Sounds Assessment and Plan - Assessment and Plan (Free Text) Assessment: 75 yo make with UGIB doing well advance diet if hgb stable dc planning repeat egd in 1-3 weeks
[2016-09-10] MEDS ORDERED: Digoxin 500 mcg/2ml (0.5 mg/2ml) Inj IVP ONE (17:23)
[2016-09-10 17:38] VITALS: PULSE 165
--- NOTE | 2016-09-11 05:40 | CP.PCM.PCO ---
Physician Communication Note - Physician Communication Note Physician Communication Note: HR 120-150/min: Give Cardizem 10mgIV push now.
[2016-09-11] MEDS: Insulin Lispro (humaLOG) 100 Units/ml Inj SC SCH ×4 (06:56→21:21)
[2016-09-11] MEDS: Sucralfate 1 gm/10 ml Oral Susp UD PO SCH ×4 (08:27→21:02)
[2016-09-11] MEDS: Pantoprazole 40 mg EC Tab PO SCH ×2 (08:28→16:24)
[2016-09-11 09:46] LABS: MEAN CELL VOLUME 88.1 fl (80.0-94.0); MEAN CORPUSCULAR HEMOGLOBIN 28.8 pg (27.0-31.0); MEAN CORPUSCULAR HGB CONC 32.7 g/dL (33.0-37.0); RED CELL DISTRIBUTION WIDTH 14.4 % (11.5-14.5); WHITE BLOOD COUNT 9.5 K/uL (4.8-10.8)
--- NOTE | 2016-09-11 09:49 | CP.PCM.PN ---
Subjective - Date & Time of Evaluation Date of Evaluation: 09/11/16 Time of Evaluation: 08:45 - Subjective Subjective: NO CHEST PAIN OR SOB UNAWARE OF RAPID HEART RATE Objective - Vital Signs/Intake and Output Vital Signs (last 24 hours): Temp Pulse Resp BP Pulse Ox 98.6 F 122 H 15 137/94 H 100 09/11/16 08:51 09/11/16 08:51 09/11/16 08:51 09/11/16 08:51 09/11/16 08:51 Intake and Output: 09/11/16 09/11/16 06:59 18:59 Intake Total 1600 240 Output Total 3550 Balance -1950 240 - Medications Medications: Current Medications Clonidine HCl (Catapres) 0.1 mg PO Q8 [facility] Last Admin: 09/11/16 08:18 Dose: 0.1 mg Diltiazem HCl (Cardizem) 90 mg PO Q8 [facility] Last Admin: 09/11/16 08:27 Dose: 90 mg Sodium Chloride (Sodium Chloride 0.9%) 1,000 mls @ 100 mls/hr IV .Q10H [facility] Last Admin: 09/10/16 17:36 Dose: 100 mls/hr Insulin Human Lispro (Humalog) 0 units SC ACHS [facility] PRN Reason: Protocol Last Admin: 09/11/16 06:56 Dose: Not Given Lisinopril (Zestril) 10 mg PO DAILY [facility] Last Admin: 09/11/16 08:28 Dose: 10 mg Pantoprazole Sodium (Protonix Ec Tab) 40 mg PO BID [facility] Last Admin: 09/11/16 08:28 Dose: 40 mg Sucralfate (Carafate Oral Susp) 1 gm PO QID [facility] Last Admin: 09/11/16 08:27 Dose: 1 gm - Labs Labs: 09/10/16 04:30 09/10/16 04:30 - Respiratory Exam Respiratory Exam: Clear to Ausculation Bilateral - Cardiovascular Exam Cardiovascular Exam: Tachycardia, Irregular Rhythm, +S1, +S2 - Extremities Exam Extremities Exam: Normal Inspection - Additional Findings 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
[2016-09-11 09:58] LABS: BLOOD UREA NITROGEN 9 mg/dl (9-20); CALCIUM 7.9 mg/dL (8.4-10.2); CARBON DIOXIDE 27 mmol/L (22-30); CHLORIDE 104 mmol/L (98-107); GFR AFRICAN-AMERICAN > 60; GLUCOSE,RANDOM 208 mg/dL (75-110); POTASSIUM 3.6 MMOL/L (3.6-5.0); SODIUM 140 mmol/l (132-148)
--- NOTE | 2016-09-11 11:31 | CP.PCM.PN ---
Subjective - Date & Time of Evaluation Date of Evaluation: 09/11/16 Time of Evaluation: 11:00 - Subjective Subjective: No further melena- brown stool when he had BM today denies CP no SOB no abd pain HR very erratic - episode of bradycardia yesterday when he was on cardizem and Metoprolol . metoprolol was d/c however this am pt's HR is in the 130s. Metoprolol at a lower dose was started by dr Pereira . Objective - Vital Signs/Intake and Output Vital Signs (last 24 hours): Temp Pulse Resp BP Pulse Ox 98.6 F 110 H 15 156/84 H 100 09/11/16 08:51 09/11/16 11:11 09/11/16 08:51 09/11/16 11:11 09/11/16 08:51 Intake and Output: 09/11/16 09/11/16 06:59 18:59 Intake Total 1600 240 Output Total 3550 Balance -1950 240 - Medications Medications: Current Medications Clonidine HCl (Catapres) 0.1 mg PO Q8 [facility] Last Admin: 09/11/16 08:18 Dose: 0.1 mg Diltiazem HCl (Cardizem) 90 mg PO Q8 [facility] Last Admin: 09/11/16 08:27 Dose: 90 mg Sodium Chloride (Sodium Chloride 0.9%) 1,000 mls @ 100 mls/hr IV .Q10H [facility] Last Admin: 09/10/16 17:36 Dose: 100 mls/hr Insulin Human Lispro (Humalog) 0 units SC ACHS [facility] PRN Reason: Protocol Last Admin: 09/11/16 06:56 Dose: Not Given Lisinopril (Zestril) 10 mg PO Q12 [facility] Stop: 09/11/16 22:00 Lisinopril (Zestril) 20 mg PO DAILY [facility] Metoprolol Tartrate (Lopressor) 50 mg PO Q12 [facility] Last Admin: 09/11/16 11:11 Dose: 50 mg Pantoprazole Sodium (Protonix Ec Tab) 40 mg PO BID [facility] Last Admin: 09/11/16 08:28 Dose: 40 mg Sucralfate (Carafate Oral Susp) 1 gm PO QID [facility] Last Admin: 09/11/16 08:27 Dose: 1 gm - Labs Labs: 09/11/16 09:05 09/11/16 09:05 - Constitutional Appears: No Acute Distress, Chronically Ill - Head Exam Head Exam: NORMAL INSPECTION, NORMOCEPHALIC - Eye Exam Eye Exam: EOMI, Normal appearance Pupil Exam: NORMAL ACCOMODATION - ENT Exam ENT Exam: Mucous Membranes Moist, Normal External Ear Exam - Neck Exam Neck Exam: Full ROM. absent: Meningismus - Respiratory Exam Respiratory Exam: NORMAL BREATHING PATTERN. absent: Wheezes, Respiratory Distress - Cardiovascular Exam Cardiovascular Exam: Tachycardia, Irregular Rhythm, +S1, +S2 - GI/Abdominal Exam GI & Abdominal Exam: Soft, Normal Bowel Sounds. absent: Tenderness - Extremities Exam Extremities Exam: Full ROM, Normal Capillary Refill. absent: Calf Tenderness, Pedal Edema - Back Exam Back Exam: Full ROM. absent: CVA tenderness (L), CVA tenderness (R), paraspinal tenderness - Neurological Exam Neurological Exam: Alert, Awake, CN II-XII Intact, Oriented x3 Neuro motor strength exam: Left Upper Extremity: 5, Right Upper Extremity: 5, Left Lower Extremity: 5, Right Lower Extremity: 5 - Psychiatric Exam Psychiatric exam: Flat Affect, Normal Mood - Skin Skin Exam: Normal Color, Warm Assessment and Plan (1) Anemia associated with acute blood loss Status: Acute (2) Duodenal ulcer with hemorrhage Status: Acute (3) Atrial fibrillation with rapid ventricular response Status: Acute (4) DM type 2 (diabetes mellitus, type 2) Status: Chronic (5) HTN (hypertension) Status: Chronic (6) DVT prophylaxis Status: Acute - Assessment and Plan (Free Text) Assessment: 75 y/o gent with hx of HTN, A Fib , Hyperlipidemia, DM, PUD, was in TCU for Rehab when he suddenly developed severe weakness, melena and had A Fib with RVR. He was transferred to ICU ,started on Protonix drip. Transfused 3 units PRBC total. EGD done by Dr Maya showed multiple Duodenal Ulcers with Oozing. (1) Anemia associated with acute blood loss due to GI Bleed Status: Acute monitor H/H no melena H/H stable the past 3 days Transfuse prn Physical therapy (2) Duodenal ulcer with hemorrhage Status: Acute Protonix drip changed to PO 40 mg bid cont Carafate EGD showed multiple duodenal ulcers with oozing tolerated Soft diet transfer pt to [facility] (3) Atrial fibrillation with rapid ventricular response Status: Acute HR erratic cont Cardizem PO 90 mg q 8 off Metoprolol as pt HR dropped to 46 yesterday however restarted at a lower dose 50 mg q [address] Pereira as pt's HR is up to 130 cardio consulted- Dr Pereira- following pt closely (4) DM type 2 (diabetes mellitus, type 2) Status: Chronic accucheck with coverage restart Metformin now that pt is tolerating Po diet (5) HTN (hypertension) Status: Chronic cont Clonidine, Cardizem and Zestril (6) DVT prophylaxis Status: Acute SCD no anticoag sec to GI bleed
[2016-09-12] MEDS: Insulin Lispro (humaLOG) 100 Units/ml Inj SC SCH ×4 (06:39→21:17)
[2016-09-12] MEDS: Sucralfate 1 gm/10 ml Oral Susp UD PO SCH ×4 (08:36→21:21)
[2016-09-12] MEDS: Pantoprazole 40 mg EC Tab PO SCH ×2 (08:37→16:24)
--- NOTE | 2016-09-12 11:06 | CP.PCM.PN ---
Subjective - Date & Time of Evaluation Date of Evaluation: 09/12/16 Time of Evaluation: 10:30 - Subjective Subjective: Patient seen and examined bedside. feeling better. Denies any CP, SONB, palpittaions, abdominal pain, nausea, vomiting , melena HR still uncontrolled,afib on monitor with HR as high as 140 Tolerating diet no acute issues overnight Wants to go home BP 153//65 Hgb 10 WBC 9.5 Objective - Vital Signs/Intake and Output Vital Signs (last 24 hours): Temp Pulse Resp BP Pulse Ox 97.7 F 148 H 14 163/87 H 98 09/12/16 08:00 09/12/16 09:41 09/12/16 08:00 09/12/16 09:41 09/12/16 08:00 Intake and Output: 09/12/16 09/12/16 06:59 18:59 Output Total 1600 Balance -1600 - Medications Medications: Current Medications Clonidine HCl (Catapres) 0.1 mg PO Q8 [facility] Last Admin: 09/12/16 08:36 Dose: 0.1 mg Diltiazem HCl (Cardizem) 90 mg PO Q8 [facility] Last Admin: 09/12/16 08:36 Dose: 90 mg Insulin Human Lispro (Humalog) 0 units SC ACHS [facility] PRN Reason: Protocol Last Admin: 09/12/16 06:39 Dose: Not Given Lisinopril (Zestril) 20 mg PO DAILY [facility] Last Admin: 09/12/16 08:37 Dose: 20 mg Metformin HCl (Glucophage) 500 mg PO BIDWM [facility] Last Admin: 09/12/16 08:37 Dose: 500 mg Metoprolol Tartrate (Lopressor) 25 mg PO Q12 [facility] Last Admin: 09/12/16 09:41 Dose: 25 mg Pantoprazole Sodium (Protonix Ec Tab) 40 mg PO BID [facility] Last Admin: 09/12/16 08:37 Dose: 40 mg Sucralfate (Carafate Oral Susp) 1 gm PO QID [facility] Last Admin: 09/12/16 08:36 Dose: 1 gm - Labs Labs: 09/11/16 09:05 09/11/16 09:05 - Constitutional Appears: Non-toxic, No Acute Distress - Head Exam Head Exam: ATRAUMATIC, NORMAL INSPECTION, NORMOCEPHALIC - Eye Exam Eye Exam: EOMI, Normal appearance, PERRL Pupil Exam: NORMAL ACCOMODATION - ENT Exam ENT Exam: Mucous Membranes Moist, Normal Exam - Neck Exam Neck Exam: Full ROM, Normal Inspection - Respiratory Exam Respiratory Exam: Clear to Ausculation Bilateral. absent: Rhonchi, Wheezes, Respiratory Distress, NORMAL BREATHING PATTERN - Cardiovascular Exam Cardiovascular Exam: Irregular Rhythm. absent: JVD - GI/Abdominal Exam GI & Abdominal Exam: Distended (obese), Soft, Normal Bowel Sounds. absent: Guarding, Tenderness, Rebound - Rectal Exam Rectal Exam: Deferred - Extremities Exam Extremities Exam: Full ROM, Normal Capillary Refill, Normal Inspection. absent : Pedal Edema - Back Exam Back Exam: NORMAL INSPECTION - Neurological Exam Neurological Exam: Alert, Awake, CN II-XII Intact, Normal Gait, Oriented x3 - Psychiatric Exam Psychiatric exam: Normal Affect - Skin Skin Exam: Dry, Pallor, Warm Assessment and Plan - Assessment and Plan (Free Text) Assessment: 75 y/o gent with hx of HTN, A Fib , Hyperlipidemia, DM, PUD, was in TCU for Rehab when he suddenly developed severe weakness, melena and had A Fib with RVR. He was transferred to ICU ,started on Protonix drip and transfused with 3 units PRBC total. EGD done by Dr Maya showed multiple Duodenal Ulcers with Oozing.At present stable with no more bleeding , H& H stable, tolerating diet Noticed to have still uncontrolled HR ranging 100-140 1. Anemia associated with acute blood loss due to GI Bleed Acute s/p EGD that showed multiple duodenal ulcers s/p 3 unit PRBC transfusion with stable H&H tolerating diet 2 Atrial fibrillation with rapid ventricular response chronic, uncontrolled cont Cardizem PO 90 mg q 8 Metoprolol was discontinued yesterday since HR dropped to 46 however restarted at a lower dose 25 mg q 12 today since HR jumped to 140 cardio consulted- Dr Pereira- following pt closely no anticoagulation due to GI bleed 3. Duodenal ulcer with hemorrhage Acute Protonix drip changed to PO 40 mg bid cont Carafate EGD showed multiple duodenal ulcers with oozing tolerating diet transfer to [facility] 4. DM type 2 (diabetes mellitus, type 2) Chronic , controlled accucheck with coverage on Metformi 5. HTN (hypertension) Chronic , labile cont Clonidine, Cardizem and Zestril restarted metoprolol today 6. DVT prophylaxis Acute SCD no anticoag sec to GI bleed
--- NOTE | 2016-09-12 13:12 | CP.PCM.PN ---
Subjective - Date & Time of Evaluation Date of Evaluation: 09/12/16 Time of Evaluation: 12:30 - Subjective Subjective: NO CHEST PAIN ABDOMINAL PAIN, SOB OR PALPITATIONS Objective - Vital Signs/Intake and Output Vital Signs (last 24 hours): Temp Pulse Resp BP Pulse Ox 97.6 F 114 H 10 L 177/102 H 98 09/12/16 12:10 09/12/16 12:10 09/12/16 12:10 09/12/16 12:10 09/12/16 12:10 Intake and Output: 09/12/16 09/12/16 06:59 18:59 Output Total 1600 Balance -1600 - Medications Medications: Current Medications Clonidine HCl (Catapres) 0.1 mg PO Q8 [facility] Last Admin: 09/12/16 08:36 Dose: 0.1 mg Diltiazem HCl (Cardizem) 90 mg PO Q8 [facility] Last Admin: 09/12/16 08:36 Dose: 90 mg Insulin Human Lispro (Humalog) 0 units SC ACHS [facility] PRN Reason: Protocol Last Admin: 09/12/16 12:12 Dose: 3 units Lisinopril (Zestril) 20 mg PO DAILY [facility] Last Admin: 09/12/16 08:37 Dose: 20 mg Metformin HCl (Glucophage) 500 mg PO BIDWM [facility] Last Admin: 09/12/16 08:37 Dose: 500 mg Metoprolol Tartrate (Lopressor) 25 mg PO Q12 [facility] Last Admin: 09/12/16 09:41 Dose: 25 mg Pantoprazole Sodium (Protonix Ec Tab) 40 mg PO BID [facility] Last Admin: 09/12/16 08:37 Dose: 40 mg Sucralfate (Carafate Oral Susp) 1 gm PO QID [facility] Last Admin: 09/12/16 12:11 Dose: 1 gm - Labs Labs: 09/11/16 09:05 09/11/16 09:05 - Respiratory Exam Respiratory Exam: Clear to Ausculation Bilateral - Cardiovascular Exam Cardiovascular Exam: Tachycardia, Irregular Rhythm - Back Exam Back Exam: NORMAL INSPECTION - Additional Findings Additional findings: [employer]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
[2016-09-13] MEDS: Insulin Lispro (humaLOG) 100 Units/ml Inj SC SCH ×4 (06:53→22:00)
[2016-09-13 07:14] LABS: HEMATOCRIT 33.4 % (35.0-51.0); MEAN CELL VOLUME 87.8 fl (80.0-94.0); MEAN CORPUSCULAR HEMOGLOBIN 28.9 pg (27.0-31.0); MEAN CORPUSCULAR HGB CONC 32.9 g/dL (33.0-37.0); RED CELL DISTRIBUTION WIDTH 15.6 % (11.5-14.5); WHITE BLOOD COUNT 7.8 K/uL (4.8-10.8)
[2016-09-13 07:16] LABS: BLOOD UREA NITROGEN 13 mg/dl (9-20); CALCIUM 8.6 mg/dL (8.4-10.2); CARBON DIOXIDE 28 mmol/L (22-30); CHLORIDE 104 mmol/L (98-107); GFR AFRICAN-AMERICAN > 60; GLUCOSE,RANDOM 125 mg/dL (75-110); SODIUM 141 mmol/l (132-148)
[2016-09-13] MEDS: Sucralfate 1 gm/10 ml Oral Susp UD PO SCH ×4 (08:47→21:18)
[2016-09-13] MEDS: Pantoprazole 40 mg EC Tab PO SCH ×2 (08:48→16:25)
--- NOTE | 2016-09-13 09:53 | CP.PCM.PN ---
Subjective - Date & Time of Evaluation Date of Evaluation: 09/13/16 Time of Evaluation: 10:30 - Subjective Subjective: Patient seen and examined bedside. Feeling better. Denies any chest pain , SOB, palpitations.No acute issues overnight Afib on monitor with HR ranging 96-134 tolerating diet Denies any melena, hematemesiss, abdominal pain, nausea or vomiting Hgb stable 11 today Objective - Vital Signs/Intake and Output Vital Signs (last 24 hours): Temp Pulse Resp BP Pulse Ox 98.2 F 100 H 13 139/80 98 09/13/16 08:30 09/13/16 08:48 09/13/16 08:30 09/13/16 08:48 09/13/16 08:30 Intake and Output: 09/13/16 09/13/16 06:59 18:59 Intake Total 130 Output Total 1250 Balance -1120 - Medications Medications: Current Medications Clonidine HCl (Catapres) 0.1 mg PO Q8 [facility] Last Admin: 09/13/16 08:47 Dose: 0.1 mg Diltiazem HCl (Cardizem) 90 mg PO Q8 [facility] Last Admin: 09/13/16 08:47 Dose: 90 mg Insulin Human Lispro (Humalog) 0 units SC ACHS [facility] PRN Reason: Protocol Last Admin: 09/13/16 06:53 Dose: Not Given Lisinopril (Zestril) 20 mg PO DAILY [facility] Last Admin: 09/13/16 08:48 Dose: 20 mg Metformin HCl (Glucophage) 500 mg PO BIDWM [facility] Last Admin: 09/13/16 08:48 Dose: 500 mg Metoprolol Tartrate (Lopressor) 25 mg PO Q12 [facility] Last Admin: 09/13/16 08:47 Dose: 25 mg Pantoprazole Sodium (Protonix Ec Tab) 40 mg PO BID [facility] Last Admin: 09/13/16 08:48 Dose: 40 mg Sucralfate (Carafate Oral Susp) 1 gm PO QID [facility] Last Admin: 09/13/16 08:47 Dose: 1 gm - Labs Labs: 09/13/16 05:30 09/13/16 05:30 - Constitutional Appears: Non-toxic, No Acute Distress - Head Exam Head Exam: ATRAUMATIC, NORMAL INSPECTION, NORMOCEPHALIC - Eye Exam Eye Exam: EOMI, Normal appearance, PERRL Pupil Exam: NORMAL ACCOMODATION - ENT Exam ENT Exam: Mucous Membranes Moist, Normal Exam - Neck Exam Neck Exam: Full ROM, Normal Inspection - Respiratory Exam Respiratory Exam: Clear to Ausculation Bilateral, NORMAL BREATHING PATTERN. absent: Rales, Rhonchi, Wheezes - Cardiovascular Exam Cardiovascular Exam: Irregular Rhythm. absent: JVD - GI/Abdominal Exam GI & Abdominal Exam: Distended, Soft, Normal Bowel Sounds. absent: Guarding, Tenderness, Rebound - Rectal Exam Rectal Exam: Deferred - Extremities Exam Extremities Exam: Full ROM, Normal Capillary Refill, Normal Inspection. absent : Pedal Edema - Back Exam Back Exam: NORMAL INSPECTION - Neurological Exam Neurological Exam: Alert, Awake, CN II-XII Intact, Oriented x3 - Psychiatric Exam Psychiatric exam: Normal Affect, Normal Mood - Skin Skin Exam: Dry, Pallor, Warm Assessment and Plan - Assessment and Plan (Free Text) Assessment: 75 y/o gent with hx of HTN, A Fib , Hyperlipidemia, DM, PUD, was in TCU for Rehab when he suddenly developed severe weakness, melena and had A Fib with RVR. He was transferred to ICU ,started on Protonix drip and transfused with 3 units PRBC total. EGD done by Dr Maya showed multiple Duodenal Ulcers with Oozing.At present stable with no more bleeding , H& H stable, tolerating diet Noticed to have still uncontrolled HR ranging 96-134 1. Anemia associated with acute blood loss due to GI Bleed Acute s/p EGD that showed multiple duodenal ulcers s/p 3 unit PRBC transfusion with stable H&H , Hgb 11 tolerating diet 2 Atrial fibrillation with rapid ventricular response chronic, uncontrolled cont Cardizem PO 90 mg q 8 Metoprolol was discontinued since HR dropped to 46 however restarted at a lower dose 25 mg q 12 yesterday since HR jumped to 140. at present HR better controlled but still fluctuating 96-134 Will continue to monitor in tele cardio consulted- Dr Pereira- following pt closely no anticoagulation due to GI bleed 3. Duodenal ulcer with hemorrhage Acute Protonix drip changed to PO 40 mg bid cont Carafate EGD showed multiple duodenal ulcers with oozing tolerating diet 4. DM type 2 (diabetes mellitus, type 2) Chronic , controlled accucheck with coverage on Metformin 5. HTN (hypertension) Chronic , labile cont Clonidine, Cardizem,Zestril and metoprolol 6. DVT prophylaxis Acute SCD no anticoag sec to GI bleed
[2016-09-14 00:13] VITALS: RESP 18
[2016-09-14] MEDS: Insulin Lispro (humaLOG) 100 Units/ml Inj SC SCH ×2 (06:47→11:54)
[2016-09-14] MEDS: Sucralfate 1 gm/10 ml Oral Susp UD PO SCH (08:37)
[2016-09-14] MEDS: Pantoprazole 40 mg EC Tab PO SCH (08:38)
--- NOTE | 2016-09-14 10:42 | CP.PCM.DIS ---
Provider - Provider Date of Admission: 09/07/16 16:06 Attending physician: Young Chavis MD Primary care physician: Dr. Moura Consults: cardiology consult GI consult PT consult Time Spent in preparation of Discharge (in minutes): 20 Hospital Course - Lab Results Lab Results: Micro Results 09/07/16 21:13 Nose MRSA Culture (Admit) - Final MRSA NOT DETECTED Most Recent Lab Values WBC 7.8 K/uL (4.8-10.8) 09/13/16 05:30 RBC 3.80 Mil/uL (4.40-5.90) L 09/13/16 05:30 Hgb 11.0 g/dL (12.0-18.0) L 09/13/16 05:30 Hct 33.4 % (35.0-51.0) L 09/13/16 05:30 MCV 87.8 fl (80.0-94.0) 09/13/16 05:30 MCH 28.9 pg (27.0-31.0) 09/13/16 05:30 MCHC 32.9 g/dL (33.0-37.0) L 09/13/16 05:30 RDW 15.6 % (11.5-14.5) H 09/13/16 05:30 Plt Count 474 K/uL (130-400) H 09/13/16 05:30 MPV 8.1 fl (7.2-11.7) 09/07/16 16:16 Neut % (Auto) 75.4 % (50.0-75.0) H 09/07/16 16:16 Lymph % (Auto) 15.5 % (20.0-40.0) L 09/07/16 16:16 [place] % (Auto) 6.4 % (0.0-10.0) 09/07/16 16:16 Eos % (Auto) 2.1 % (0.0-4.0) 09/07/16 16:16 Baso % (Auto) 0.6 % (0.0-2.0) 09/07/16 16:16 Neut # 9.7 K/uL (1.8-7.0) H 09/07/16 16:16 Lymph # 2.0 K/uL (1.0-4.3) 09/07/16 16:16 [place] # 0.8 K/uL (0.0-0.8) 09/07/16 16:16 Eos # 0.3 K/uL (0.0-0.7) 09/07/16 16:16 Baso # 0.1 K/uL (0.0-0.2) 09/07/16 16:16 Sodium 141 mmol/l (132-148) 09/13/16 05:30 Potassium 4.0 MMOL/L (3.6-5.0) 09/13/16 05:30 Chloride 104 mmol/L (98-107) 09/13/16 05:30 Carbon Dioxide 28 mmol/L (22-30) 09/13/16 05:30 Anion Gap 13 (10-20) 09/13/16 05:30 BUN 13 mg/dl (9-20) 09/13/16 05:30 Creatinine 0.9 mg/dL (0.8-1.5) 09/13/16 05:30 Est GFR ( Amer) > 60 09/13/16 05:30 Est GFR (Non-Af Amer) > 60 09/13/16 05:30 POC Glucose (mg/dL) 120 mg/dL (65-110) H 09/14/16 05:24 Random Glucose 125 mg/dL (75-110) H 09/13/16 05:30 Calcium 8.6 mg/dL (8.4-10.2) 09/13/16 05:30 Troponin I 0.1340 ng/mL (0.00-0.120) H* 09/07/16 16:16 - Hospital Course Hospital Course: 75 y/o gent with hx of HTN, A Fib , Hyperlipidemia, DM, PUD, was in TCU for Rehab when he suddenly developed severe weakness, melena and had A Fib with RVR. He was transferred to ICU ,started on Protonix drip and transfused with 3 units PRBC total. EGD done by Dr Schofield showed multiple Duodenal Ulcers with Oozing.At present stable with no more bleeding , H& H stable, tolerating diet. He was started on protonix Po and carafate. His HR was noticed to be uncontrolled so cardiology was consulted and started on cardizem Po and metoprolol with better control of HR. patient is hemodynamically stable, ambulating with no assistance. will discharge home. Will need follow upw ith mixing roll operator Dr. catalan and department of mathematics chair Dr. schofield in 2 weeks for repeat EGD . 1. Anemia associated with acute blood loss due to GI Bleed Acute s/p EGD that showed multiple duodenal ulcers s/p 3 unit PRBC transfusion with stable H&H , Hgb 11 tolerating diet 2 Atrial fibrillation with rapid ventricular response chronic,controlled at present cont Cardizem PO 90 mg q 8 Metoprolol dose adjusted to 25 mg po bid since patient develeoped episode of bradycardia on metoprolol 50 mg HR at present controlled so will discharge home cardio consulted- Dr Catalan no anticoagulation due to GI bleed 3. Duodenal ulcer with hemorrhage Acute Protonix drip changed to PO 40 mg bid cont Carafate EGD showed multiple duodenal ulcers with oozing tolerating diet Will need repeat EGD in 2 weeks . Will need follow up with Dr. Schofield 4. DM type 2 (diabetes mellitus, type 2) Chronic , controlled accucheck with coverage on Metformin 5. HTN (hypertension) Chronic , labile cont Clonidine, Cardizem,Zestril and metoprolol 6. DVT prophylaxis Acute SCD no anticoag sec to GI bleed Discharge Exam - Head Exam Head Exam: ATRAUMATIC, NORMAL INSPECTION, NORMOCEPHALIC - Eye Exam Eye Exam: EOMI, Normal appearance, PERRL Pupil Exam: NORMAL ACCOMODATION - ENT Exam ENT Exam: Mucous Membranes Moist, Normal Exam - Neck Exam Neck exam: Full Rom, Normal Inspection - Respiratory Exam Respiratory Exam: Clear to PA & Lateral, NORMAL BREATHING PATTERN. absent: Rales, Rhonchi, Wheezes - Cardiovascular Exam Cardiovascular Exam: Irregular Rhythm. absent: JVD - GI/Abdominal Exam GI & Abdominal Exam: Normal Bowel Sounds, Soft. absent: Distended, Guarding, Rebound, Tenderness - Rectal Exam Rectal Exam: Deferred - Extremities Exam Extremities exam: normal capillary refill, normal inspection, pedal pulses present - Back Exam Back exam: NORMAL INSPECTION - Neurological Exam Neurological exam: Alert, CN II-XII Intact, Oriented x3, Reflexes Normal - Psychiatric Exam Psychiatric exam: Normal Affect, Normal Mood - Skin Skin Exam: Dry, Intact, Warm Discharge Plan - Discharge Medications Prescriptions: Atorvastatin [Lipitor] 10 mg PO DAILY #30 tab cloNIDine [Catapres] 0.1 mg PO Q8 #90 tab diltiaZEM [Cardizem] 90 mg PO Q8 #90 tab Fenofibrate [Tricor] 145 mg PO DAILY #30 Lisinopril [Zestril] 20 mg PO DAILY #30 tab metFORMIN [glucOPHAGE] 500 mg PO BID #60 Metoprolol Tartrate [Lopressor] 25 mg PO Q12 #60 tab Pantoprazole [Protonix EC Tab] 40 mg PO BID #60 ect SITagliptin [Januvia] 100 mg PO DAILY #30 tab Sucralfate [Carafate Oral Susp] 1 gm PO QID #120 Tamsulosin [Flomax] 0.4 mg PO DAILY #14 cap - Follow Up Plan Condition: STABLE Disposition: HOME/ ROUTINE Patient education suggested?: Yes Instructions: Peptic Ulcer (DC), Atrial Fibrillation (DC) Referrals: García Moura MD [Family Provider] - Arnulfo Catalan MD [Staff Provider] - Christiano Schofield MD, PhD [Staff Provider] -
[2016-09-14 12:20] VITALS: BP 135/74; PULSE 58; TEMP 98.6; O2SAT 97
--- NOTE | 2016-09-14 12:47 | CP.PCM.PN ---
Subjective - Date & Time of Evaluation Date of Evaluation: 09/14/16 Time of Evaluation: 11:30 - Subjective Subjective: NO CHEST PAIN OR SOB Objective - Vital Signs/Intake and Output Vital Signs (last 24 hours): Temp Pulse Resp BP Pulse Ox 98.6 F 58 L 18 135/74 97 09/14/16 12:20 09/14/16 12:20 09/14/16 12:20 09/14/16 12:20 09/14/16 12:20 Intake and Output: 09/14/16 09/14/16 06:59 18:59 Intake Total 120 Output Total 650 Balance -530 - Medications Medications: Current Medications Clonidine HCl (Catapres) 0.1 mg PO Q8 [facility] Last Admin: 09/14/16 08:40 Dose: 0.1 mg Diltiazem HCl (Cardizem) 90 mg PO Q8 [facility] Last Admin: 09/14/16 08:38 Dose: 90 mg Insulin Human Lispro (Humalog) 0 units SC ACHS [facility] PRN Reason: Protocol Last Admin: 09/14/16 11:54 Dose: 3 units Lisinopril (Zestril) 20 mg PO DAILY [facility] Last Admin: 09/14/16 08:38 Dose: 20 mg Metformin HCl (Glucophage) 500 mg PO BIDWM [facility] Last Admin: 09/14/16 08:38 Dose: 500 mg Metoprolol Tartrate (Lopressor) 25 mg PO Q12 [facility] Last Admin: 09/14/16 08:38 Dose: 25 mg Pantoprazole Sodium (Protonix Ec Tab) 40 mg PO BID [facility] Last Admin: 09/14/16 08:38 Dose: 40 mg Sucralfate (Carafate Oral Susp) 1 gm PO QID [facility] Last Admin: 09/14/16 08:37 Dose: 1 gm - Labs Labs: 09/13/16 05:30 09/13/16 05:30 - Respiratory Exam Respiratory Exam: Clear to Ausculation Bilateral - Cardiovascular Exam Cardiovascular Exam: Irregular Rhythm, +S1, +S2 - Extremities Exam Extremities Exam: Normal Inspection - Additional Findings 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
== END 2016-09-14 14:34 | disposition home or self-care (01) | DRG 378 ==
LOC: H.ER 15:44 → H.ERHOLD 16:06 → H.ICU/CCU 18:12 → H.TEL 09-13 11:01
DX: K26.4 Chronic or unspecified duodenal ulcer with hemorrhage (principal); D62 Acute posthemorrhagic anemia; I11.0 Hypertensive heart disease with heart failure; I50.9 Heart failure, unspecified; R00.1 Bradycardia, unspecified; I48.2 Chronic atrial fibrillation; E11.9 Type 2 diabetes mellitus without complications; E78.5 Hyperlipidemia, unspecified; E78.00 Pure hypercholesterolemia, unspecified; E78.1 Pure hyperglyceridemia; I25.10 Atherosclerotic heart disease of native coronary artery without angina pectoris; Z98.61 Coronary angioplasty status; K25.9 Gastric ulcer, unspecified as acute or chronic, without hemorrhage or perforation; K29.70 Gastritis, unspecified, without bleeding; Z87.891 Personal history of nicotine dependence; R78.9 Finding of unspecified substance, not normally found in blood

== ENCOUNTER 2017-05-11 10:42 | Emergency (ER) | payer MEDICARE, BC ==
[2017-05-11 10:43] VITALS: PULSE 165; BMI 33.9
[2017-05-11 10:48] VITALS: TEMP 97.8; O2SAT 97
--- NOTE | 2017-05-11 12:31 | ED PDOC ---
HPI: Abdomen Time Seen by Provider: 05/11/17 12:09 Chief Complaint (Nursing): Abdominal Pain Chief Complaint (Provider): Abd pain History Per: Patient History/Exam Limitations: no limitations Onset/Duration Of Symptoms: Days (x1 week) Current Symptoms Are (Timing): Still Present Location Of Pain/Discomfort: RUQ Quality Of Discomfort: "Pain" Associated Symptoms: Back Pain (right flank). denies: Fever, Chills, Nausea, Vomiting, Diarrhea, Chest Pain, Urinary Symptoms Additional Complaint(s): Giorgio Nina is a 76 year old male, with a past medical history of kidney stones, CHF, A-fib, HTN, gastritis and surgical repair of bleeding ulcer, who presents to the emergency department complaining of right upper abdominal pain and right flank pain going down the right lower back onset for x1 week with no improvement. Patient denies eating new foods. Patient does not take any aspirins or blood thinners due to ulcer hx. He denies any nausea, vomit, diarrhea, new weakness or numbness, testicular pain, chest pain or shortness of breath. No further medical complaints. PMD: García Moura Past Medical History Reviewed: Historical Data, Nursing Documentation, Vital Signs Vital Signs: Last Vital Signs Temp 97.8 F 05/11/17 11:50 Pulse 66 05/11/17 11:50 Resp 20 05/11/17 11:50 BP 136/71 05/11/17 11:50 Pulse Ox 97 05/11/17 14:25 - Medical History PMH: Atrial Fibrillation (with RVR), Cardia Arrhythmia, CHF, Gastritis, HTN, Hypercholesterolemia, Kidney Stones (s/p stone removal), Pneumonia Denies: HIV, Chronic Kidney Disease - Surgical History Surgical History: Endoscopy (09/07/16) Other surgeries: Surgical repair of bleeding ulcer - Family History Family History: States: Unknown Family Hx - Living Arrangements Living Arrangements: With Family - Home Medications Home Medications: Ambulatory Orders Medication Instructions Recorded traMADol [Ultram] 50 mg PO TID PRN #15 tab 08/27/16 Atorvastatin [Lipitor] 10 mg PO DAILY #30 tab 09/14/16 Fenofibrate [Tricor] 145 mg PO DAILY #30 09/14/16 Lisinopril [Zestril] 20 mg PO DAILY #30 tab 09/14/16 Metoprolol Tartrate [Lopressor] 25 mg PO Q12 #60 tab 09/14/16 Pantoprazole [Protonix EC Tab] 40 mg PO BID #60 ect 09/14/16 SITagliptin [Januvia] 100 mg PO DAILY #30 tab 09/14/16 Sucralfate [Carafate Oral Susp] 1 gm PO QID #120 09/14/16 Tamsulosin [Flomax] 0.4 mg PO DAILY #14 cap 09/14/16 cloNIDine [Catapres] 0.1 mg PO Q8 #90 tab 09/14/16 diltiaZEM [Cardizem] 90 mg PO Q8 #90 tab 09/14/16 metFORMIN [glucOPHAGE] 500 mg PO BID #60 09/14/16 - Allergies Allergies/Adverse Reactions: Allergies Allergy/AdvReac Type Severity Reaction Status Date / Time dabigatran etexilate Allergy hot flashes Verified 05/11/17 11:50 [From Pradaxa] Review of Systems ROS Statement: Except As Marked, All Systems Reviewed And Found Negative Cardiovascular: Negative for: Chest Pain Respiratory: Negative for: Shortness of Breath Gastrointestinal: Positive for: Abdominal Pain (RUQ). Negative for: Nausea, Vomiting, Diarrhea Genitourinary Male: Negative for: Scrotal Pain Musculoskeletal: Positive for: Back Pain (right flank) Neurological: Negative for: Weakness, Numbness Physical Exam - Reviewed Nursing Documentation Reviewed: Yes Vital Signs Reviewed: Yes - Physical Exam Appears: Positive for: Non-toxic Head Exam: Positive for: ATRAUMATIC, NORMAL INSPECTION, NORMOCEPHALIC Skin: Positive for: Normal Color, Warm, Dry Eye Exam: Positive for: Normal appearance, EOMI, PERRL Neck: Positive for: Painless ROM, Supple Cardiovascular/Chest: Positive for: Regular Rate, Rhythm. Negative for: Murmur Respiratory: Positive for: Normal Breath Sounds (clear b/l). Negative for: Respiratory Distress Gastrointestinal/Abdominal: Positive for: Tenderness (RUQ), Other (Surgical scar from bleeding ulcer repair.) Back: Positive for: R CVA Tenderness. Negative for: L CVA Tenderness Extremity: Positive for: Normal ROM. Negative for: Tenderness, Deformity, Swelling Neurologic/Psych: Positive for: Alert, Oriented - Laboratory Results Result Diagrams: 05/11/17 13:50 05/11/17 13:50 Interpretation Of Abn Labs: 23 bun - ECG ECG: Positive for: Interpreted By Me, Viewed By Me Interpretation Of Abn EKG: afib O2 Sat by Pulse Oximetry: 97 (RA) Pulse Ox Interpretation: Normal - CT Scan/US ct Other Rad Studies (CT/US): Read By Radiologist Other Rad Interpretation: no acute; stone in kidney - Progress ED Course And Treament: 1559: Stable. AAOx3. Pain free. Tolerated PO. Fu with pcp. Medical Decision Making Medical Decision Making: Initial Impression: Abdominal pain Initial Plan: --EKG --CMP --Lipase --Troponin I --Urine dip --CBC w/ differential --PTT --PT --Morphine 4mg IV --Sodium Chloride 500 ml IV 250 mls/hr --Reevaluation Scribe Attestation: Documented by Luca Britton, acting as a scribe for Antonio Lima MD Provider Scribe Attestation: All medical record entries made by the Scribe were at my direction and personally dictated by me. I have reviewed the chart and agree that the record accurately reflects my personal performance of the history, physical exam, medical decision making, and the department course for this patient. I have also personally directed, reviewed, and agree with the discharge instructions and disposition. Disposition - Clinical Impression Clinical Impression: Abdominal pain, Dehydration - Patient ED Disposition Is Patient to be Admitted: No Counseled Patient/Family Regarding: Studies Performed, Diagnosis, Need For Followup - Disposition Referrals: [facility] [Outside] - 05/12/17 Disposition: Routine/Home Disposition Time: 16:04 Condition: STABLE Additional Instructions: Return if not better in 3 days. Instructions: Acute Abdomen (Belly Pain), Adult (DC), Dehydration, Adult (DC) Print Language: VENEZUELAN
--- NOTE | 2017-05-11 13:32 | CT ---
PROCEDURE: CT Abdomen and Pelvis without intravenous contrast HISTORY: R/O stone COMPARISON: CT angiography of the chest, abdomen and pelvis 08/31/2016. TECHNIQUE: Contiguous images were obtained from the domes of the diaphragms to the upper thighs without the administration of intravenous contrast. Oral contrast was not administered. Radiation dose: Total exam DLP = 1025.3 mGy-cm. This CT exam was performed using one or more of the following dose reduction techniques: Automated exposure control, adjustment of the mA and/or kV according to patient size, and/or use of iterative reconstruction technique. FINDINGS: LOWER THORAX: Stable cardiomegaly. Coronary arterial and valvular calcifications. No pericardial effusion. No focal consolidation or pleural effusion. LIVER: Unremarkable. No gross lesion or ductal dilatation. GALLBLADDER AND BILE DUCTS: Unremarkable. PANCREAS: Atrophy. No gross lesion or ductal dilatation. SPLEEN: Unremarkable. ADRENALS: Unremarkable. No mass. KIDNEYS AND URETERS: Punctate left lower pole nonobstructive renal calculus. Bilateral perinephric stranding. Left renal atrophy. No hydronephrosis. No solid mass. VASCULATURE: Unremarkable. No aortic aneurysm. BOWEL: Colonic diverticulosis without evidence for diverticulitis. No obstruction. No gross mural thickening. APPENDIX: Unremarkable. Normal appendix. PERITONEUM: Stable small fat containing right parasagittal ventral hernia. No free fluid. No free air. LYMPH NODES: Unremarkable. No enlarged lymph nodes. BLADDER: Unremarkable. REPRODUCTIVE: Unremarkable. BONES: Degenerative changes. No acute fracture. OTHER FINDINGS: None. IMPRESSION: Punctate nonobstructive left lower pole renal calculus. No obstructive uropathy or evidence of recently passed genitourinary calculus. Additional stable findings as above.
[2017-05-11] MEDS ORDERED: Morphine 4 MG/ML VIAL ONE (14:00)
[2017-05-11] MEDS: Sodium Chloride 0.9% 500 ML IV STA (14:04)
[2017-05-11] MEDS: Morphine 4 MG/ML VIAL IV ONE (14:05)
[2017-05-11 14:07] LABS: BASO # 0.1 K/uL (0.0-0.2); BASO % 0.8 % (0.0-2.0); EOS # 0.2 K/uL (0.0-0.7); EOS % 2.5 % (0.0-4.0); HEMOGLOBIN 13.4 g/dL (12.0-18.0); LYMPH # 1.7 K/uL (1.0-4.3); LYMPH % 19.7 % (20.0-40.0); MEAN CELL VOLUME 85.6 fl (80.0-94.0); MEAN CORPUSCULAR HGB CONC 32.7 g/dL (33.0-37.0); MEAN PLATELET VOLUME 7.6 fl (7.2-11.7); MONO # 0.8 K/uL (0.0-0.8); MONO % 9.7 % (0.0-10.0); NEUT # 5.8 K/uL (1.8-7.0); NEUT % 67.3 % (50.0-75.0); NRBC % 0.2 % (0.0-0.0); RBC 4.8 Mil/uL (4.40-5.90); RED CELL DISTRIBUTION WIDTH 16.4 % (11.5-14.5); WHITE BLOOD COUNT 8.7 K/uL (4.8-10.8)
[2017-05-11 14:15] LABS: ALB/GLOB RATIO 1.3 (1.0-2.1); ALBUMIN 4.1 g/dL (3.5-5.0); ALT/SGPT 31 U/L (21-72); AST/SGOT 34 U/L (17-59); BLOOD UREA NITROGEN 23 mg/dl (9-20); CALCIUM 9.2 mg/dL (8.4-10.2); GFR AFRICAN-AMERICAN > 60; GFR NON-AFRICAN AMERICAN > 60; LIPASE 112 U/L (23-300)
[2017-05-11 14:32] LABS: INR 1.1 (0.9-1.2); PARTIAL THROMBOPLASTIN TIME 31.4 Seconds (25.6-37.1); PROTHROMBIN TIME 12.2 Seconds (9.8-13.1)
--- NOTE | 2017-05-11 17:59 | US ---
HISTORY: abd pain; RUQ limited eval. COMPARISON: CT of the abdomen pelvis without contrast performed 05/11/17 TECHNIQUE: Sonographic evaluation of the right upper quadrant of the abdomen. FINDINGS: LIVER: Measures 15.7 cm in length. Echogenic liver may be seen in setting of hepatic parenchymal disease or fatty infiltration. No focal hepatic mass identified. The main portal vein appears patent with normal directional flow. No intrahepatic bile duct dilatation. GALLBLADDER: No gallstones. No gallbladder wall thickening or pericholecystic edema. Negative sonographic Toscano's sign as assessed by the carpet sewing machine operator. COMMON BILE DUCT: Measures 6 mm. PANCREAS: Not well-visualized. RIGHT KIDNEY: Measures 12.0 x 6.2 x 6.0 cm. No obstructing calculus or hydronephrosis identified. AORTA: Limited visualization appears grossly unremarkable. IVC: Limited visualization appears grossly unremarkable. OTHER FINDINGS: None . IMPRESSION: Echogenic liver may be seen in setting of hepatic parenchymal disease or fatty infiltration.
[2017-05-11 18:27] VITALS: BP 130/70; PULSE 70; RESP 18
--- NOTE | 2017-05-12 22:22 | CARD ---
APPROVED REPORT EKG Measurement Heart [id number] <Conclusion> Atrial fibrillation Prolonged QT Abnormal ECG
== END 2017-05-11 17:45 | disposition home or self-care (01) ==
LOC: H.ER 10:42
DX: R10.11 Right upper quadrant pain (principal); E86.0 Dehydration; E78.00 Pure hypercholesterolemia, unspecified; I11.0 Hypertensive heart disease with heart failure; Z79.84 Long term (current) use of oral hypoglycemic drugs; Z87.442 Personal history of urinary calculi
CPT/HCPCS: 74176; 76705; 80053; 83690; 84484; 85025; 85610; 85730; 93005; 96374; 99282; J2270; J7040

== ENCOUNTER 2017-05-21 07:23 | Emergency (ER) | payer MEDICARE, BC ==
[2017-05-21 07:24] VITALS: PULSE 165; BMI 33.9
[2017-05-21 07:40] VITALS: RESP 18; TEMP 98
[2017-05-21 08:24] LABS: BASO # 0.1 K/uL (0.0-0.2); BASO % 0.7 % (0.0-2.0); EOS # 0.3 K/uL (0.0-0.7); EOS % 3.1 % (0.0-4.0); HEMOGLOBIN 14.3 g/dL (12.0-18.0); LYMPH # 1.8 K/uL (1.0-4.3); LYMPH % 22.1 % (20.0-40.0); MEAN CORPUSCULAR HGB CONC 33.7 g/dL (33.0-37.0); MEAN PLATELET VOLUME 7.5 fl (7.2-11.7); MONO # 0.7 K/uL (0.0-0.8); MONO % 9.2 % (0.0-10.0); NEUT # 5.2 K/uL (1.8-7.0); NEUT % 64.9 % (50.0-75.0); NRBC % 0.1 % (0.0-0.0); RBC 4.93 Mil/uL (4.40-5.90); RED CELL DISTRIBUTION WIDTH 15.6 % (11.5-14.5)
[2017-05-21 08:57] LABS: ALB/GLOB RATIO 1.3 (1.0-2.1); ALBUMIN 4.1 g/dL (3.5-5.0); ALT/SGPT 27 U/L (21-72); AST/SGOT 42 U/L (17-59); BLOOD UREA NITROGEN 26 mg/dl (9-20); CALCIUM 9.6 mg/dL (8.4-10.2); GFR AFRICAN-AMERICAN > 60; GFR NON-AFRICAN AMERICAN > 60
--- NOTE | 2017-05-21 09:17 | ED PDOC ---
HPI: Back Time Seen by Provider: 05/21/17 07:41 Chief Complaint (Nursing): Back Pain Chief Complaint (Provider): Back Pain History Per: Family () Onset/Duration Of Symptoms: Worse Since Current Symptoms Are (Timing): Still Present Quality Of Discomfort: "Pain" Additional History Per: Patient Additional Complaint(s): 76 y/o male presents to the ED with his complaining of right back pain. Patient feels pain whenever he moves and denies heavy lifting. gave him Tylenol every six hours yesterday with mild relief. mentions last Wednesday, the patient reported to the ED with the same complaint and was discharged home with normal labs and diagnosed with belly pain. Patient was scheduled to visit PMD, however the doctor was not there and the pain became worse so they came to the ED. Denies urinary problems, difficulty breathing, or fever. PMD: García Moura Past Medical History Reviewed: Historical Data, Nursing Documentation, Vital Signs Vital Signs: Last Vital Signs Temp 98 F 05/21/17 07:35 Pulse 113 H 05/21/17 07:35 Resp 18 05/21/17 07:35 BP 187/102 H 05/21/17 07:35 Pulse Ox 98 05/21/17 07:35 - Medical History PMH: Atrial Fibrillation (with RVR), Cardia Arrhythmia, CHF, Gastritis, HTN, Hypercholesterolemia, Kidney Stones (s/p stone removal), Pneumonia Denies: HIV, Chronic Kidney Disease - Surgical History Surgical History: Endoscopy (09/07/16) - Family History Family History: States: Unknown Family Hx - Social History Current smoker - smoking cessation education provided: No Alcohol: None Drugs: Denies - Home Medications Home Medications: Ambulatory Orders Medication Instructions Recorded traMADol [Ultram] 50 mg PO TID PRN #15 tab 08/27/16 Atorvastatin [Lipitor] 10 mg PO DAILY #30 tab 09/14/16 Fenofibrate [Tricor] 145 mg PO DAILY #30 09/14/16 Lisinopril [Zestril] 20 mg PO DAILY #30 tab 09/14/16 Metoprolol Tartrate [Lopressor] 25 mg PO Q12 #60 tab 09/14/16 Pantoprazole [Protonix EC Tab] 40 mg PO BID #60 ect 09/14/16 SITagliptin [Januvia] 100 mg PO DAILY #30 tab 09/14/16 Sucralfate [Carafate Oral Susp] 1 gm PO QID #120 09/14/16 Tamsulosin [Flomax] 0.4 mg PO DAILY #14 cap 09/14/16 cloNIDine [Catapres] 0.1 mg PO Q8 #90 tab 09/14/16 diltiaZEM [Cardizem] 90 mg PO Q8 #90 tab 09/14/16 metFORMIN [glucOPHAGE] 500 mg PO BID #60 09/14/16 Naproxen 375 mg PO BID PRN #20 tablet 05/21/17 Polyethylene Glycol 3350 [Miralax] 1 packet PO DAILY #30 packet 05/21/17 - Allergies Allergies/Adverse Reactions: Allergies Allergy/AdvReac Type Severity Reaction Status Date / Time dabigatran etexilate Allergy hot flashes Verified 05/11/17 11:50 [From Pradaxa] Review of Systems ROS Statement: Except As Marked, All Systems Reviewed And Found Negative Constitutional: Negative for: Fever Respiratory: Negative for: Other (difficulty breathing ) Genitourinary Male: Negative for: Dysuria, Frequency, Incontinence Musculoskeletal: Positive for: Back Pain (right-side) Physical Exam - Reviewed Nursing Documentation Reviewed: Yes Vital Signs Reviewed: Yes - Physical Exam Appears: Positive for: Non-toxic, No Acute Distress, Uncomfortable Head Exam: Positive for: ATRAUMATIC, NORMAL INSPECTION, NORMOCEPHALIC Skin: Positive for: Normal Color, Warm, Dry Eye Exam: Positive for: EOMI, Normal appearance, PERRL ENT: Positive for: Normal ENT Inspection Neck: Positive for: Normal, Painless ROM, Supple. Negative for: Decreased ROM Cardiovascular/Chest: Positive for: Regular Rate, Rhythm. Negative for: Murmur , Bradycardia Respiratory: Positive for: Other (Right ling rouse ). Negative for: Decreased Breath Sounds, Accessory Muscle Use, Wheezing, Respiratory Distress Gastrointestinal/Abdominal: Positive for: Bowel Sounds, Soft, Distended (mildly) . Negative for: Tenderness, Guarding, Rebound Back: Positive for: R CVA Tenderness Extremity: Positive for: Normal ROM. Negative for: Tenderness, Pedal Edema, Deformity Neurologic/Psych: Positive for: Alert, Oriented (x3), Gait - Laboratory Results Result Diagrams: 05/21/17 08:20 05/21/17 08:20 - ECG O2 Sat by Pulse Oximetry: 98 (RA) Pulse Ox Interpretation: Normal Medical Decision Making Medical Decision Making: Time:08:00 Initial Plan: --EKG --CMP --CBC --Erythrocyte Sedimentation Rate --Chest Two Views (PA/LAT) --Flexeril 10mg --Toradol 30mg --KUB --Urinalysis --Reevaluation Documented by Sarita Busch acting as a scribe for Annalee Edwards MD. All medical record entries made by the Scribe were at my direction and personally dictated by me. I have reviewed the chart and agree that the record accurately reflects my personal performance of the history, physical exam, medical decision making, and the department course for this patient. I have also personally directed, reviewed, and agree with the discharge instructions and disposition. Disposition - Clinical Impression Clinical Impression: Muscle strain, Constipation - Patient ED Disposition Is Patient to be Admitted: No Doctor Will See Patient In The: Office Counseled Patient/Family Regarding: Diagnosis, Need For Followup, Rx Given - Disposition Referrals: García Moura MD [Staff Provider] - Disposition: Routine/Home Disposition Time: 10:07 Condition: IMPROVED Prescriptions: Naproxen 375 mg PO BID PRN #20 tablet PRN Reason: Pain, Moderate (4-7) Polyethylene Glycol 3350 [Miralax] 1 packet PO DAILY #30 packet Instructions: Muscle Strain, High Fiber Diet Forms: [employer] ([place]ian) - POA Present On Arrival: None
--- NOTE | 2017-05-21 09:24 | RAD ---
HISTORY: right flank pain COMPARISON: Chest radiograph dated 09/07/2016. TECHNIQUE: Chest PA and lateral FINDINGS: LUNGS: No active pulmonary disease. PLEURA: No significant pleural effusion identified. No pneumothorax apparent. CARDIOVASCULAR: Atherosclerotic aortic calcifications. Cardiomediastinal silhouette stably enlarged. OSSEOUS STRUCTURES: Unchanged. VISUALIZED UPPER ABDOMEN: Normal. OTHER FINDINGS: None. IMPRESSION: No active disease.
--- NOTE | 2017-05-21 09:25 | RAD ---
HISTORY: right flank pain COMPARISON: No prior. FINDINGS: BOWEL: Amount of retained colonic stool. No obstruction. No free air. BONES: Normal. OTHER FINDINGS: None. IMPRESSION: Prominent amount of retained colonic stool. No obvious calcifications overlying the genitourinary tracts.
[2017-05-21 09:42] LABS: SQUAMOUS EPITHIAL < 1 /hpf (0-5); URINE BILIRUBIN NEGATIVE (NEGATIVE); URINE BLOOD NEGATIVE (NEGATIVE); URINE CLARITY CLEAR (Clear); URINE COLOR YELLOW (YELLOW); URINE GLUCOSE (UA) NEG (Normal); URINE LEUKOCYTE ESTERASE NEG Leu/uL (Negative); URINE NITRATE NEGATIVE (NEGATIVE); URINE PROTEIN NEGATIVE (NEGATIVE); URINE UROBILINOGEN 0.2-1.0 mg/dL (0.2-1.0)
[2017-05-21 10:21] VITALS: BP 145/88; PULSE 80; O2SAT 100
--- NOTE | 2017-05-21 18:01 | CARD ---
APPROVED REPORT EKG Measurement Heart [id number] <Conclusion> Atrial fibrillation with rapid ventricular response Nonspecific ST and T wave abnormality Abnormal ECG
== END 2017-05-21 10:22 | disposition home or self-care (01) ==
LOC: H.ER 07:23
DX: M54.9 Dorsalgia, unspecified (principal); K59.00 Constipation, unspecified; I48.91 Unspecified atrial fibrillation; E78.00 Pure hypercholesterolemia, unspecified; I11.0 Hypertensive heart disease with heart failure; Z79.84 Long term (current) use of oral hypoglycemic drugs
CPT/HCPCS: 71046; 74018; 80053; 81003; 85025; 85651; 93005; 99282; J1885